=== PATIENT | male | born 1955 | race Caucasian/White ===

== ENCOUNTER 2020-09-11 23:30 | Inpatient (IN) | payer MEDICARE, MEDICAID ==
[~2020-09-11] VITALS: Ht 182.9 cm; Wt 70.3 kg
[2020-09-12] MEDS ORDERED: MAGNESIUM HYDROXIDE 2,400 MG/30 ML ORAL.SUSP. PO PRN (01:00)
[2020-09-12] MEDS ORDERED: MAG HYDROX/AL HYDROX/SIMETH 30 ML ORAL.SUSP PO PRN (01:00)
[2020-09-12] MEDS ORDERED: METHYL SALICYLATE/MENTHOL TOPICAL OINTMENT 57GM TUBE. TP PRN (01:00)
--- NOTE | 2020-09-12 01:08 | NUR ---
Admission Note with Justification for Admission to [facility] Patient admitted to [facility] for protective oversight for emergency stabilization of acute psychiatric crisis. Pt admitted from: [facility] Mode of arrival: EMS Accompanied By: EMS Precipitating behaviors that initiated intake and admission: IT WAS REPORTED THAT PATIENT HAS BEEN HAVING DECREASED SLEEP, PARANOIA, HYPERVERBAL, DELUSIONS: THINKING THAT STAFF IS POISONING HIM, VISUAL HALLUCINATIONS THAT HE HAS LESIONS ALL OVER HIS BODY AND THAT HIS FACILITY HAS GIVEN HIM CANCER. Description of failure of out patient attempts at stabilization in previous setting list behavior and medication trials: SENT HIM TO THE ER Behaviors and assessment findings upon admission: PATIENT IS HYPERVERBAL UPON ARRIVAL WITH FLIGHT OF IDEAS, VERBALLY AGGRESSIVE, THREATENING STAFF AND CALLING STAFF A BUNCH OF "FUCKING CHICKS". EMS REPORTED THAT HE WAS HYPERVERBAL AND WAS VERBALLY THREATENING THEM ON THE RIDE HERE. PATIENTS BELONGINGS WERE INVENTORIED AND HIS VITAL SIGNS WERE OBTAINED. HE WAS VULGAR AND RUDE TO NURSE DURING ASSESSMENT QUESTIONS STATING HIS NAME AND DATE WHEN ASKED, HE ALSO KNEW IT WAS 2020. HE THEN LAUNCHING INTO A TIRADE ABOUT [place] AND "FUCK YOU BITCH" WAS THE ANSWER TO THE REST OF THE ASSESSMENT QUESTIONS. EMS REPORTED THAT [facility] TOLD THEM THEY HAD GIVEN HIM IM [facility] WHILE THERE. THIS WAS NOT RELAYED TO [facility] STAFF WHEN [facility] CALLED TO DO INTAKE. PATIENT HAS BEEN TALKING ABOUT "CARTELS, COCAINE, CYMRO MAFIA, ETC" HE IS ORIENTED X2 (SELF AND YEAR), AWARE HE IS IN A HOSPITAL BUT HAS NO IDEA WHERE OR WHY. Plan: Admit for protective oversight for adjustment and stabilization of medications, behaviors and mood. Intense treatment regimen including groups, medication adjustments, therapy, consistent regimen for ADL's, self care, and sleep hygiene. Daily monitoring by Inpatient staff, Psychiatry, and Medical Physician.
[2020-09-12 01:30] VITALS: BP 183/80
[2020-09-12] MEDS ORDERED: FERR325T14 PO (01:46)
[2020-09-12] MEDS ORDERED: ATOR40TA59 PO (01:46)
[2020-09-12] MEDS ORDERED: POLY2500 PO (01:46)
[2020-09-12] MEDS ORDERED: CETI10TA16 PO (01:46)
[2020-09-12] MEDS ORDERED: AMLO-187 PO (01:46)
[2020-09-12] MEDS ORDERED: LORA10TA3 PO (01:46)
[2020-09-12] MEDS ORDERED: OLAN5TAB9 PO (01:46)
[2020-09-12] MEDS ORDERED: QUET200T4 PO (01:46)
[2020-09-12] MEDS ORDERED: SIME80TA13 PO (01:46)
[2020-09-12] MEDS ORDERED: IBUP-1673 PO (01:46)
[2020-09-12] MEDS ORDERED: SENN-142 PO (01:46)
[2020-09-12] MEDS ORDERED: CARV25TA2 PO (01:46)
[2020-09-12] MEDS ORDERED: ACET325T21 PO (01:46)
[2020-09-12] MEDS ORDERED: FAMO20TA5 PO (01:46)
[2020-09-12] MEDS ORDERED: ALUMINUM HYDROXIDE PO (01:46)
[2020-09-12] MEDS ORDERED: MAG-115 PO (01:46)
[2020-09-12] MEDS ORDERED: MONT10TA80 PO (01:46)
[2020-09-12] MEDS ORDERED: BENZ9.352 MM (01:46)
[2020-09-12] MEDS ORDERED: EPIN0.3A3 IM (01:46)
[2020-09-12] MEDS ORDERED: POLY15DR27 OU (01:46)
[2020-09-12] MEDS ORDERED: BENZ2TAB5 PO ×2 (01:46→02:40)
[2020-09-12] MEDS ORDERED: CARB1TAB22 PO (01:46)
[2020-09-12] MEDS ORDERED: TRAZ-125 PO (01:46)
[2020-09-12] MEDS ORDERED: CLON0.1T PO (01:46)
[2020-09-12] MEDS ORDERED: SIMETHICONE PO (01:46)
[2020-09-12] MEDS ORDERED: ALPR0.5T6 PO ×2 (01:46→02:40)
[2020-09-12] MEDS ORDERED: LISI30TA4 PO (01:46)
[2020-09-12] MEDS ORDERED: TAMS0.4C97 PO (01:46)
[2020-09-12] MEDS ORDERED: GUAI600T47 PO (01:46)
[2020-09-12] MEDS ORDERED: CICL15CR2 TP (01:46)
[2020-09-12] MEDS ORDERED: MAGN24003 PO (01:46)
[2020-09-12] MEDS ORDERED: DIPHENHYDRAMINE PO (01:46)
[2020-09-12] MEDS ORDERED: MELA10TA PO (01:46)
[2020-09-12] MEDS ORDERED: MAGNESIUM HYDROXIDE PO (01:46)
[2020-09-12] MEDS ORDERED: CALC625T12 PO (01:46)
[2020-09-12] MEDS ORDERED: INSU100C SQ (01:46)
[2020-09-12] MEDS ORDERED: LIDOCAINE PO (01:46)
[2020-09-12] MEDS ORDERED: MELATONIN 3 MG TABLET PO SCH (02:00)
[2020-09-12] MEDS ORDERED: BENZTROPINE MESYLATE 1 MG TABLET PO SCH (02:00)
[2020-09-12] MEDS ORDERED: ALPRAZolam 0.5 MG TABLET PO SCH (02:00)
[2020-09-12] MEDS: QUEtiapine 100 MG TABLET. PO SCH ×2 (02:01→21:19)
[2020-09-12] MEDS: OLANZapine 5 MG TABLET PO SCH ×2 (02:01→21:19)
[2020-09-12] MEDS: traZODone 100 MG TABLET. PO SCH ×2 (02:01→21:19)
[2020-09-12] MEDS ORDERED: CETIRIZINE HCL 10 MG TABLET PO PRN (02:30)
[2020-09-12] MEDS ORDERED: DIPHEN PO PRN (02:30)
[2020-09-12] MEDS ORDERED: LIDO PO PRN (02:30)
[2020-09-12] MEDS ORDERED: POLYVINYL ALCOHOL 1.4% OPHTH SOLUTION 15ML BOTTLE. OU PRN (02:30)
[2020-09-12] MEDS ORDERED: MAALOX PO PRN (02:30)
[2020-09-12] MEDS ORDERED: MELA3TAB43 PO (02:40)
[2020-09-12] MEDS ORDERED: CHLO25AM IJ (02:40)
[2020-09-12] MEDS ORDERED: BUSP15TA PO (02:40)
[2020-09-12] MEDS ORDERED: CHLO25TA4 PO (02:40)
[2020-09-12] MEDS ORDERED: chlorproMAZINE 50 MG/2 ML AMPUL IV PRN (02:45)
[2020-09-12] MEDS ORDERED: SIMETHICONE 80 MG TAB.CHEW PO PRN (02:45)
[2020-09-12] MEDS: busPIRone 15 MG TABLET. PO SCH ×4 (03:38→21:19)
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
[2020-09-12] MEDS: INSULIN LISPRO 300 UNITS/3 ML VIAL. SQ SCH ×3 (08:00→17:00)
[2020-09-12 08:05] VITALS: BP 181/77
[2020-09-12] MEDS: NICOTINE 21MG PATCH. TD SCH (08:07)
[2020-09-12] MEDS: MONTELUKAST 10 MG TABLET. PO SCH (08:07)
[2020-09-12] MEDS: ALPRAZolam 0.5 MG TABLET PO SCH ×3 (08:08→21:18)
[2020-09-12] MEDS: CARBIDOPA/LEVODOPA 25/100MG TABLET PO SCH ×3 (08:08→21:19)
[2020-09-12] MEDS: amLODIPine BESYLATE 10 MG TABLET PO SCH (08:08)
[2020-09-12] MEDS: POLYETHYLENE GLYCOL 3350 17 GM PACKET. PO SCH (08:08)
[2020-09-12] MEDS: FERROUS SULFATE 325 MG TABLET. PO SCH ×3 (08:08→17:09)
[2020-09-12] MEDS: CARVEDILOL 12.5 MG TABLET PO SCH ×2 (08:09→17:09)
[2020-09-12] MEDS: BENZTROPINE MESYLATE 1 MG TABLET PO SCH ×2 (08:09→21:20)
[2020-09-12] MEDS: LISINOPRIL 10 MG TABLET PO SCH (08:09)
[2020-09-12] MEDS: CALCIUM POLYCARBOPHIL 625 MG TABLET PO SCH (09:00)
[2020-09-12] MEDS ORDERED: NON FORMULARY ITEM (Loratadine 10 MG) PO SCH (09:00)
[2020-09-12] MEDS ORDERED: CALCIUM POLYCARBOPHIL 625 MG TABLET PO SCH (09:00)
[2020-09-12] MEDS ORDERED: LIDO:MAALOX:BENADRYL 1:1:1 180 ML BOTTLE. PO PRN (09:00)
--- NOTE | 2020-09-12 09:44 | NUR ---
Patient has been provided with Practical Counseling for tobacco cessation. It included a face to face interaction. Pt. was not interested in hearing anything about quitting smoking and was basically non-compliant.
[2020-09-12 10:01] LABS: BASO % 1 % (0-3); EOS % 0 % (0-3); HEMATOCRIT 42.6 % (39.0-53.0); HEMOGLOBIN 14.5 g/dL (13.0-17.5); LYMPH # 1.2 x10^3/uL (1.0-4.8); LYMPH % 15 % (24-48); MEAN CORPUSCULAR HEMOGLOBIN 31 pg (25-35); MEAN CORPUSCULAR HGB CONC 34 g/dL (31-37); MEAN CORPUSCULAR VOLUME 91 fL (79-100); MONO # 1.4 x10^3/uL (0.0-1.1); MONO % 17 % (0-9); NEUT # 5.6 x10^3uL (1.8-7.7); NEUT % 68 % (31-73); PLATELET COUNT 215 x10^3/uL (140-400); RED BLOOD COUNT 4.68 x10^6/uL (4.30-5.70); RED CELL DISTRIBUTION WIDTH 14.8 % (11.5-14.5); WHITE BLOOD COUNT 8.2 x10^3/uL (4.0-11.0)
[2020-09-12 10:19] LABS: ALBUMIN 4.8 g/dL (3.4-5.0); ALBUMIN/GLOBULIN RATIO 1.6 (1.0-1.7); CALCIUM 9.9 mg/dL (8.5-10.1); CREATININE 1.4 mg/dL (0.7-1.3); GFR 50.9; MAGNESIUM 2.3 mg/dL (1.8-2.4); POTASSIUM 4.3 mmol/L (3.5-5.1); TOTAL BILIRUBIN 0.5 mg/dL (0.2-1.0); TOTAL PROTEIN 7.8 g/dL (6.4-8.2)
[2020-09-12 13:24] LABS: THYROID STIM HORMONE (TSH) 3.552 uIU/mL (0.358-3.740)
[2020-09-12 15:36] VITALS: BP 129/80
--- NOTE | 2020-09-12 18:30 | NUR ---
Patient hyperverbal as well as verbally abusive and offensive. Patient alert and oriented x4 patient up ad elizabeth independently refuses vitals at times and refused his weight. Patient current smoker and smokes a pack a day he reports the nicotine patch of 21mg is not enough Dr Galaviz rounded on patient he was not able to get a word in because the patient would not stop talking he kept questioning Dr Galaviz's ability and skills as a Doctor, per Dr Galaviz there is not any other stronger medication patient can take along with the patch. Dr Hartman rounded on patient no new orders yet he would like to evaluate patient further tonight and review his labs in detail. Patient vitals are stable he is med compliant just very resistive when getting ready to take his meds. Patient does have an appetite but he does not stop talking long enough to finish his food. He talks so much during meals that he coughs and blames it on the kitchen trying to give him dangerous objects in his food and in reality he is talking too much and trying to eat at the same time which is impossible to do. No new orders from Dr Galaviz no complaints of pain or discomfort will continue to monitor patient.
[2020-09-12] MEDS: MELATONIN 3 MG TABLET PO SCH (21:18)
[2020-09-12] MEDS: TAMSULOSIN 0.4 MG CAP.ER.24H. PO SCH (21:19)
[2020-09-12] MEDS: ATORVASTATIN CALCIUM 20 MG TABLET PO SCH (21:19)
--- NOTE | 2020-09-12 22:07 | PDOC ---
Exam Note: Joel Note: Please also refer to the separate dictated note~for this date of service dictated separately.~Patient seen individually. Discussed the patient with Nursing staff reviewed the chart.~Reviewed interim history and current functioning. Reviewed vital signs,~Labs/ Radiology~and current medications noted below. Continue current treatment with the changes noted in the dictated addendum note Assessment: Vital Signs/I&O: Vital Signs Date Time Temp Pulse Resp B/P (MAP) Pulse Ox O2 Delivery O2 Flow Rate FiO2 09/12/20 17:09 64 129/80 09/12/20 15:36 96.9 16 100 09/12/20 08:05 Room Air I & O 09/11/20 09/11/20 09/12/20 15:00 23:00 07:00 Intake Total 0 ml Balance 0 ml Labs: Laboratory Tests Test 09/12/20 08:04 09/12/20 09:50 09/12/20 11:29 09/12/20 16:53 Glucose (Fingerstick) 131 mg/dL (70-99) H 127 mg/dL (70-99) H 141 mg/dL (70-99) H White Blood Count 8.2 x10^3/uL (4.0-11.0) Red Blood Count 4.68 x10^6/uL (4.30-5.70) Hemoglobin 14.5 g/dL (13.0-17.5) Hematocrit 42.6 % (39.0-53.0) Mean Corpuscular Volume 91 fL (79-100) Mean Corpuscular Hemoglobin 31 pg (25-35) Mean Corpuscular Hemoglobin Concent 34 g/dL (31-37) Red Cell Distribution Width 14.8 % (11.5-14.5) H Platelet Count 215 x10^3/uL (140-400) Neutrophils (%) (Auto) 68 % (31-73) Lymphocytes (%) (Auto) 15 % (24-48) L Monocytes (%) (Auto) 17 % (0-9) H Eosinophils (%) (Auto) 0 % (0-3) Basophils (%) (Auto) 1 % (0-3) Neutrophils # (Auto) 5.6 x10^3uL (1.8-7.7) Lymphocytes # (Auto) 1.2 x10^3/uL (1.0-4.8) Monocytes # (Auto) 1.4 x10^3/uL (0.0-1.1) H Eosinophils # (Auto) 0.0 x10^3/uL (0.0-0.7) Basophils # (Auto) 0.0 x10^3/uL (0.0-0.2) D-Dimer (Mallory) 0.31 mg/L (0.00-0.50) Sodium Level 138 mmol/L (136-145) Potassium Level 4.3 mmol/L (3.5-5.1) Chloride Level 100 mmol/L (98-107) Carbon Dioxide Level 24 mmol/L (21-32) Anion Gap 14 (6-14) Blood Urea Nitrogen 17 mg/dL (8-26) Creatinine 1.4 mg/dL (0.7-1.3) H Estimated GFR (Cockcroft-Gault) 50.9 BUN/Creatinine Ratio 12 (6-20) Glucose Level 147 mg/dL (70-99) H Calcium Level 9.9 mg/dL (8.5-10.1) Magnesium Level 2.3 mg/dL (1.8-2.4) Iron Level 66 ug/dL (65-175) Total Iron Binding Capacity 329 ug/dL (250-450) Iron Saturation 20 % (15-34) Total Bilirubin 0.5 mg/dL (0.2-1.0) Aspartate Amino Transferase (AST) 52 U/L (15-37) H Alanine Aminotransferase (ALT) 30 U/L (16-63) Alkaline Phosphatase 91 U/L (46-116) Total Protein 7.8 g/dL (6.4-8.2) Albumin 4.8 g/dL (3.4-5.0) Albumin/Globulin Ratio 1.6 (1.0-1.7) Triglycerides Level 34 mg/dL (0-150) Cholesterol Level 128 mg/dL (0-200) LDL Cholesterol, Calculated 36 mg/dL (0-100) VLDL Cholesterol, Calculated 6 mg/dL (0-40) Non-HDL Cholesterol Calculated 42 mg/dL (0-129) HDL Cholesterol 86 mg/dL (40-60) H Cholesterol/HDL Ratio 1.0 Vitamin B12 Level 1079 pg/mL (247-911) H 25-Hydroxy Vitamin D Total 31.1 ng/mL (30-100) Thyroid Stimulating Hormone (TSH) 3.552 uIU/mL (0.358-3.740) Treponema pallidum Antibody Nonreactive (Nonreactive) Test 09/12/20 19:15 Glucose (Fingerstick) 179 mg/dL (70-99) H Current Medications: Meds: Current Medications Medications (Trade) Dose Ordered Sig/Moe Route PRN Reason Start Time Stop Time Status Last Admin Dose Admin Nicotine (Nicoderm Cq 21mg Patch) 1 patch DAILY TD 09/12/20 09:00 09/12/20 08:07 Alprazolam (Xanax) 0.5 mg TID PO 09/12/20 02:00 09/12/20 02:50 DC 09/12/20 02:01 Olanzapine (ZyPREXA) 5 mg HS PO 09/12/20 02:00 09/12/20 21:19 Trazodone HCl (Desyrel) 100 mg HS PO 09/12/20 02:00 09/12/20 21:19 Benztropine Mesylate (Cogentin) 2 mg BID PO 09/12/20 02:00 09/12/20 02:51 DC 09/12/20 02:01 Melatonin (Melatonin) 9 mg HS PO 09/12/20 02:00 09/12/20 02:51 DC 09/12/20 02:01 Quetiapine Fumarate (SEROquel) 200 mg HS PO 09/12/20 02:00 09/12/20 21:19 Amlodipine Besylate (Norvasc) 10 mg DAILY PO 09/12/20 09:00 09/12/20 08:08 Carbidopa/Levodopa (Sinemet 25/100) 2 tab TID PO 09/12/20 09:00 09/12/20 21:19 Ferrous Sulfate (Feosol) 325 mg TIDWMEALS PO 09/12/20 08:00 09/12/20 17:09 Montelukast Sodium (Singulair) 10 mg DAILY PO 09/12/20 09:00 09/12/20 08:07 Tamsulosin HCl (Flomax) 0.4 mg HS PO 09/12/20 21:00 09/12/20 21:19 Lisinopril (Prinivil) 30 mg DAILY PO 09/12/20 09:00 09/12/20 08:09 Polyethylene Glycol (miraLAX) 17 gm DAILY PO 09/12/20 09:00 09/12/20 08:08 Atorvastatin Calcium (Lipitor) 40 mg QHS PO 09/12/20 21:00 09/12/20 21:19 Carvedilol (Coreg) 25 mg BIDWMEALS PO 09/12/20 08:00 09/12/20 17:09 Alprazolam (Xanax) 0.5 mg TID PO 09/12/20 09:00 09/12/20 21:18 Buspirone HCl (Buspar) 7.5 mg TID PO 09/12/20 03:00 09/12/20 21:19 Melatonin (Melatonin) 9 mg QHS PO 09/12/20 21:00 09/12/20 21:18 Benztropine Mesylate (Cogentin) 2 mg BID PO 09/12/20 09:00 09/12/20 21:20 Calcium Polycarbophil (Fibercon) 625 mg DAILY PO 09/12/20 09:00 09/12/20 09:00 I have reviewed the current psychotropics carefully including drug interactions. Risk benefit ratio favors no change other than as noted in my dictated progress note. Diagnosis: Problems: (1) Bipolar disorder, current episode mixed, severe, with psychotic features BRIGIDA WOMACK MD Sep 12, 2020 22:07
--- NOTE | 2020-09-12 23:07 | NUR ---
Pt is in his room talking, no one is present, he is manic. He is hyperverbal and tonight he is talking about PCP, the cocaine cartel, [place] veterans and jumping from subject to subject. Patient continually talking while nurse was in to assess him and give him medications. Nurse eventually put medications in patients mouth with spoon, patient continued to talk and would not swallow medications or take a drink of water. Eventually patient swallowed medications when nurse spooned pudding into his mouth. Patient questioned this nurses credentials and then was talking about Dr Galaviz being from [facility] and Dr Hartman being from [facility]. Patient stated they are not his doctors and that no doctor had ordered the medication that nurse was giving him. After nurse left the room patient continued to talk (no one else was present), he was later observed sitting in a chair in the hallway talking to himself. Patient refused to take a shower and has continued to refuse to get onto a scale or onto the bed for a weight.
[2020-09-13 00:06] LABS: HEMOGLOBIN A1C 6.6 % (4.8-5.6)
--- NOTE | 2020-09-13 02:08 | CONS ---
DATE OF CONSULTATION: 09/12/2020 HISTORY OF PRESENT ILLNESS: The patient is a 65-year-old male patient who was seen at the [facility] with insomnia, paranoid, hyperverbal and directable and delusional. Thinks staff are poisoning him, he has visual hallucinations, sees lesions all over his body, thinks facility has given him cancer, all this has been going on for the last few weeks. He was [facility] to [facility] for inpatient psychiatric stabilization. The patient is extremely hyperverbal and paranoid, talks nonstop and has flight of ideas and was difficult to get any information from him. PAST MEDICAL HISTORY: Significant for hypertension, type 2 diabetes, gastroesophageal reflux disease and hyperlipidemia. He has also degenerative joint diseases. PAST PSYCHIATRIC HISTORY: Significant for schizoaffective disorder, anxiety and depression. FAMILY HISTORY: Positive for heart disease. PAST SURGICAL HISTORY: Significant for joint replacement, tonsillectomy. ALLERGIES: HE IS ALLERGIC TO VICODIN, PENICILLIN, AMINOGLYCOSIDE, CIPRO, GENTAMICIN, MORPHINE, KEFLEX, TETRACYCLINE, SULFA DRUGS, DICYCLOMINE. He is apparently intolerant to METOPROLOL. SOCIAL HISTORY: He is current everyday smoker. He apparently does not drink alcohol. MEDICATIONS: He is currently on the following medication. He is on cetirizine 10 mg once a day, loratadine 10 mg once a day, epinephrine or EpiPen 0.3 mg intramuscular as needed, tamsulosin 0.4 mg at bedtime, ferrous sulfate 325 mg 3 times a day, atorvastatin 40 mg at bedtime, clonidine 0.1 mg twice a day, carvedilol 25 mg twice a day, amlodipine 10 mg once a day, lisinopril 30 mg once a day, ibuprofen 200 mg every 6 hours, Tylenol 650 mg every 4 hours, trazodone 100 mg at bedtime, chlorpromazine 25 mg per mL intramuscular twice a day as needed for psychosis, chlorpromazine 25 mg p.o. b.i.d., olanzapine 5 mg at bedtime, quetiapine fumarate 200 mg at bedtime, alprazolam 0.5 mg 3 times a day, buspirone 15 mg half a tablet 3 times a day, benztropine mesylate 2 mg twice a day, he is on carbidopa/levodopa 25/100 three times a day, Singulair 10 mg at bedtime, guaifenesin or Mucinex 600 mg twice a day. He is on polyvinyl alcohol or artificial tears 1 drop to both eyes 4 times a day. He is on Mylanta 30 mL every 4 hours, simethicone 80 mg twice a day, calcium polycarbophil 625 mg daily, magnesium hydroxide 30 mL p.o. daily p.r.n. for constipation, senna-S 1 tablet at bedtime. He is on famotidine 20 mg twice a day. He is on Humalog insulin as insulin sliding scale before meals. He is on ciclopirox cream apply topically for toenail fungus, melatonin 3 mg at bedtime, polyethylene glycol 17 grams daily, diphenhydramine, Maalox and lidocaine 5 mL q.i.d. REVIEW OF SYSTEMS: Unobtainable. The patient talks nonstop. PHYSICAL EXAMINATION: GENERAL: When I examined him, he looked well and was clearly in no apparent respiratory distress. He was somewhat pale, but no jaundice, cyanosis or thyromegaly. No jugular venous distention. No lower limb edema. VITAL SIGNS: His heart rate was 64, blood pressure is 129/80, temperature 96.9, respiratory rate was 16, and oxygen saturation 100% on room air. HEAD, EYES, EARS, NOSE, AND THROAT: Normocephalic, atraumatic. NECK: Supple. HEART: Normal first and second heart sounds. No gallop, rub or murmur. CHEST: Clear to auscultation. No crepitation or rhonchi. ABDOMEN: Soft, nontender. No guarding or rigidity. No organomegaly. All hernial orifice intact. Bowel sounds normal. NEUROLOGIC: He is grossly intact. All his cranial nerves intact. He moves extremities without difficulty, ambulates without assistance or assistive devices. LABORATORY DATA: Showed a white cell count of 8200, hemoglobin 14.5, hematocrit 42, MCV 91, and platelet count 215,000 with normal manual differential. His chemistry showed a serum sodium of 138, potassium 4.3, chloride 100, bicarbonate 24, anion gap of 14, BUN 17, creatinine was 1.4. Estimated GFR was 50 mL per minute. His glucose 147, calcium was 9.9, magnesium 2.3. Total bilirubin, AST, ALT, alkaline phosphatase were normal. Total protein 7.8, albumin was 4.8. His D-dimer was 0.31. His serum iron, TIBC and iron saturation are consistent with replete iron stores. Serum triglycerides 54, cholesterol 128, LDL was 36, VLDL was 6, HDL was 86 and the ratio was 1. His vitamin B12 was 1079, 25-hydroxy vitamin D was 31. TSH was normal at 3.552. His Treponema pallidum antibodies were nonreactive. ASSESSMENT AND PLAN: In summary, this is a 65-year-old male patient who was admitted on account of being extremely paranoid, hyperverbal and directable. He is delusional and thinks staff are poisoning him. He has visual hallucinations, see lesions all over his body, he thinks that the facility has given him the cancer and all this in a background of schizoaffective disorder. These symptoms have been going on for almost a few weeks now. He has multiple medical problems including type 2 diabetes mellitus, hypertension and hyperlipidemia. 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 His lab work, however, showed that his hemoglobin and hematocrit, white cell count and platelets are all within normal range. His chemistry also was unremarkable except for low vitamin D and chronic kidney disease. The patient is extremely paranoid, seems to be manic. He has severe flight of ideas and talks nonstop and as far as his medical problem, I would recommend that we should add he is already on lisinopril, amlodipine and carvedilol. I believe that controlling his psychosis probably will have ameliorating effect on his hypertension. I will follow him closely and obviously if his blood pressure continued to be high, we can increase his lisinopril or add other medication. Thank you, Dr. Hartman, for allowing me to participate in the care of this patient. TRUPTI/DAYAN SELBY: Dary TID: [id number]
[2020-09-13 06:17] VITALS: BP 101/63
[2020-09-13] MEDS: CARVEDILOL 12.5 MG TABLET PO SCH ×3 (08:00→16:27)
[2020-09-13] MEDS: INSULIN LISPRO 300 UNITS/3 ML VIAL. SQ SCH ×3 (08:00→17:33)
[2020-09-13] MEDS: FERROUS SULFATE 325 MG TABLET. PO SCH ×4 (08:00→16:27)
[2020-09-13] MEDS: LISINOPRIL 10 MG TABLET PO SCH ×2 (08:15→09:00)
[2020-09-13] MEDS: amLODIPine BESYLATE 10 MG TABLET PO SCH ×2 (08:16→09:00)
[2020-09-13] MEDS: busPIRone 15 MG TABLET. PO SCH ×4 (08:17→20:19)
[2020-09-13] MEDS: CARBIDOPA/LEVODOPA 25/100MG TABLET PO SCH ×4 (08:18→20:18)
[2020-09-13] MEDS: ALPRAZolam 0.5 MG TABLET PO SCH ×4 (08:19→20:19)
[2020-09-13] MEDS: MONTELUKAST 10 MG TABLET. PO SCH ×2 (08:19→09:00)
[2020-09-13] MEDS: CALCIUM POLYCARBOPHIL 625 MG TABLET PO SCH ×2 (08:19→09:00)
[2020-09-13] MEDS: BENZTROPINE MESYLATE 1 MG TABLET PO SCH ×3 (08:19→20:19)
[2020-09-13] MEDS: NICOTINE 21MG PATCH. TD SCH (08:20)
[2020-09-13] MEDS: POLYETHYLENE GLYCOL 3350 17 GM PACKET. PO SCH (08:20)
--- NOTE | 2020-09-13 10:51 | NUR ---
WEEKLY ACTIVITY THERAPY NOTE Date of Admission: 09/11/20 Date of AT Assessment: TBD Precipitating behaviors that initiated intake and admission: IT WAS REPORTED THAT PATIENT HAS BEEN HAVING DECREASED SLEEP, PARANOIA, HYPERVERBAL, DELUSIONS: THINKING THAT STAFF IS POISONING HIM, VISUAL HALLUCINATIONS THAT HE HAS LESIONS ALL OVER HIS BODY AND THAT HIS FACILITY HAS GIVEN HIM CANCER. Goal aimed: TBD Initial Goal: TBD Weekly progress towards goal: GOAL EVALUATION BEGINS NEXT WEEK Group participation level: 1 min Weekly highlights: said that he likes fishing during salad bowl activity Thursday afternoon Behaviors observed: hyperverbal Plan: meet/assess pt Beneficial adaptations:
--- NOTE | 2020-09-13 10:52 | NUR ---
Phon Addendum: 09/13/20 at 1055 by SHRADDHA HUYNH RN Phone Consent Patient legal guardian Ace Sweeney gave phone consent to this rewriter and verified with NEVIN Carson for intramuscular injection to be given to patient due to not being med compliant.
[2020-09-13] MEDS: HALOPERIDOL LACT 5 MG/ML VIAL. IM SCH (11:08)
--- NOTE | 2020-09-13 12:55 | NUR ---
ACTIVITY THERAPY ASSESSMENT completed based on notes, observation and interview. Pt was walking in the hallway. AT introduced self to pt and asked if he would answer a few questions. Pt became very hyperverbal as he proceeded to walk down the hallway. Pt said that we could find his room to answer questions. AT assisted pt to his room and pt sat in the chair in his room. Pt remained hyperverbal throughout assessment and often spoke off topic. AT asked pt what he likes to do and pt said he likes fishing, hunting, painting (acrylics/canvas), and arts and crafts. Pt can recall most facts and details during assessment. AT asked pt about his family. Pt explained that he is not and has two children. Pt said that he has good contact with both of his children. Pt remained hyperverbal so AT redirected pt by asking about stress. Pt said that he was stressed because he doesn't think he should be taking these medications. Pt began to talk about "getting a shot in the rear end." Pt was irritable and agitated when talking about the injection. Pt said "there will be no more of that funny stuff." AT redirected pt by encouraging him to attend group sessions during the afternoon. Per notes pt has been resistive with cares and medications. Pt was given an intramuscular injection and appears to be more compliant. Initial goal aimed to increase stress management and relaxation skills. Pt will participate in at least five individual or group Activity Therapy sessions per week. Addendum: 09/20/20 at 1220 by MANUEL SCHMIDT ACT Goal changed 09/20:Pt will participate in all group Activity Therapy sessions offered.
--- NOTE | 2020-09-13 15:55 | NUR ---
Nurse Note Patient has been hyperverbal throughout shift with flight of ideas. Patient refusing medications therefore Haldol and Ativan intramuscular administered. Patient has continued to be hyperverbal but has slowed down and been compliant with medications/cares since injection.
[2020-09-13 16:00] VITALS: BP 103/65
[2020-09-13] MEDS: DIVALPROEX ER 500 MG TAB.ER.24H PO SCH (20:17)
[2020-09-13] MEDS: QUEtiapine 100 MG TABLET. PO SCH (20:18)
[2020-09-13] MEDS: traZODone 100 MG TABLET. PO SCH (20:18)
[2020-09-13] MEDS: MELATONIN 3 MG TABLET PO SCH (20:18)
[2020-09-13] MEDS: TAMSULOSIN 0.4 MG CAP.ER.24H. PO SCH (20:19)
[2020-09-13] MEDS: ATORVASTATIN CALCIUM 20 MG TABLET PO SCH (20:19)
[2020-09-13] MEDS: OLANZapine 5 MG TABLET PO SCH (20:20)
--- NOTE | 2020-09-13 21:08 | NUR ---
Consult Dr Palencia per Dr. Hartman. Concern: Patient on Sinemet for Parkinson's and has Bipolar with manic symptoms. Dr Palencia paged 09/13 [phone]. Addendum: 09/14/20 at 0013 by MARIELOS MADDEN RN Dr. Palencia called back and was notified of the Consult.
--- NOTE | 2020-09-13 21:58 | PDOC ---
Exam Note: Joel Note: Please also refer to the separate dictated note~for this date of service dictated separately.~Patient seen individually. Discussed the patient with Nursing staff reviewed the chart.~Reviewed interim history and current functioning. Reviewed vital signs,~Labs/ Radiology~and current medications noted below. Continue current treatment with the changes noted in the dictated addendum note Assessment: Vital Signs/I&O: Vital Signs Date Time Temp Pulse Resp B/P (MAP) Pulse Ox O2 Delivery O2 Flow Rate FiO2 09/13/20 16:27 81 103/65 09/13/20 16:00 97.4 20 96 09/13/20 06:17 Room Air I & O 09/12/20 09/12/20 09/13/20 15:00 23:00 07:00 Intake Total 840 ml 480 ml Balance 840 ml 480 ml Labs: Laboratory Tests Test 09/13/20 12:06 09/13/20 17:17 09/13/20 19:23 Glucose (Fingerstick) 122 mg/dL (70-99) H 214 mg/dL (70-99) H 95 mg/dL (70-99) Current Medications: Meds: Laboratory Tests Test 09/13/20 12:06 09/13/20 17:17 09/13/20 19:23 Glucose (Fingerstick) 122 mg/dL 214 mg/dL 95 mg/dL Current Medications Medications (Trade) Dose Ordered Sig/Moe Route PRN Reason Start Time Stop Time Status Last Admin Dose Admin Acetaminophen (Tylenol) 650 mg PRN Q6HRS PRN PO MILD PAIN / TEMP > 100.3'F 09/12/20 01:00 Multi-Ingredient Ointment (Analgesic [place]) 1 miquel PRN QID PRN TP MUSCLE PAIN 09/12/20 01:00 Al Hydroxide/Mg Hydroxide (Mylanta Plus Xs) 15 ml PRN AFTMEALHC PRN PO DYSPEPSIA 09/12/20 01:00 Magnesium Hydroxide (Milk Of Magnesia) 2,400 mg PRN QHS PRN PO CONSTIPATION 09/12/20 01:00 Nicotine (Nicoderm Cq 21mg Patch) 1 patch DAILY TD 09/12/20 09:00 09/13/20 08:20 Alprazolam (Xanax) 0.5 mg TID PO 09/12/20 02:00 09/12/20 02:50 DC 09/12/20 02:01 Olanzapine (ZyPREXA) 5 mg HS PO 09/12/20 02:00 09/13/20 20:20 Trazodone HCl (Desyrel) 100 mg HS PO 09/12/20 02:00 09/13/20 20:18 Benztropine Mesylate (Cogentin) 2 mg BID PO 09/12/20 02:00 09/12/20 02:51 DC 09/12/20 02:01 Melatonin (Melatonin) 9 mg HS PO 09/12/20 02:00 09/12/20 02:51 DC 09/12/20 02:01 Quetiapine Fumarate (SEROquel) 200 mg HS PO 09/12/20 02:00 09/13/20 20:18 Amlodipine Besylate (Norvasc) 10 mg DAILY PO 09/12/20 09:00 09/12/20 08:08 Calcium Polycarbophil (Fibercon) 625 mg DAILY PO 09/12/20 09:00 09/12/20 09:12 DC Carbidopa/Levodopa (Sinemet 25/100) 2 tab TID PO 09/12/20 09:00 09/13/20 20:18 Cetirizine HCl (ZyrTEC) 10 mg PRN DAILY PRN PO ALLERGIES 09/12/20 02:30 Ferrous Sulfate (Feosol) 325 mg TIDWMEALS PO 09/12/20 08:00 09/13/20 16:27 Montelukast Sodium (Singulair) 10 mg DAILY PO 09/12/20 09:00 09/12/20 08:07 Artificial Tears (Artificial Tears) 1 drop PRN QID PRN OU DRY EYE 09/12/20 02:30 Tamsulosin HCl (Flomax) 0.4 mg HS PO 09/12/20 21:00 09/13/20 20:19 Lisinopril (Prinivil) 30 mg DAILY PO 09/12/20 09:00 09/12/20 08:09 Non-Formulary Medication (Loratadine ) 10 mg DAILY PO 09/12/20 09:00 09/12/20 02:37 DC Polyethylene Glycol (miraLAX) 17 gm DAILY PO 09/12/20 09:00 09/12/20 08:08 Non-Formulary Medication ([Diphen/Maalox/ Lido] ) 5 ml QID PRN PO Abdominal Pain 09/12/20 02:30 UNV Atorvastatin Calcium (Lipitor) 40 mg QHS PO 09/12/20 21:00 09/13/20 20:19 Carvedilol (Coreg) 25 mg BIDWMEALS PO 09/12/20 08:00 09/13/20 16:27 Simethicone (Gas-X) 80 mg PRN BID PRN PO GAS / BLOATING 09/12/20 02:45 Multi-Ingredient Mouthwash/Gargle (Magic Mouthwash) 10 ml PRN QID PRN PO MOUTH PAIN 09/12/20 09:00 Alprazolam (Xanax) 0.5 mg TID PO 09/12/20 09:00 09/13/20 20:19 Buspirone HCl (Buspar) 7.5 mg TID PO 09/12/20 03:00 09/13/20 20:19 Chlorpromazine HCl (Thorazine) 25 mg PRN BID PRN IV PSYCHOSIS 09/12/20 02:45 Melatonin (Melatonin) 9 mg QHS PO 09/12/20 21:00 09/13/20 20:18 Benztropine Mesylate (Cogentin) 2 mg BID PO 09/12/20 09:00 09/13/20 20:19 Insulin Human Lispro (HumaLOG) 0-9 UNITS TIDWMEALS SQ 09/12/20 08:00 09/13/20 17:33 Calcium Polycarbophil (Fibercon) 625 mg DAILY PO 09/12/20 09:00 09/12/20 09:00 Haloperidol Lactate (Haldol) 5 mg DAILY IM 09/13/20 11:00 09/13/20 11:08 Lorazepam (Ativan Inj) 1 mg 1X ONCE IM 09/13/20 10:45 09/13/20 10:56 DC 09/13/20 11:08 Lorazepam (Ativan Inj) 1 mg DAILY IM 09/13/20 11:00 Divalproex Sodium (Depakote Er) 500 mg QHS PO 09/13/20 21:00 09/13/20 20:17 Current Medications Medications (Trade) Dose Ordered Sig/Moe Route PRN Reason Start Time Stop Time Status Last Admin Dose Admin Haloperidol Lactate (Haldol) 5 mg DAILY IM 09/13/20 11:00 09/13/20 11:08 Lorazepam (Ativan Inj) 1 mg 1X ONCE IM 09/13/20 10:45 09/13/20 10:56 DC 09/13/20 11:08 Divalproex Sodium (Depakote Er) 500 mg QHS PO 09/13/20 21:00 09/13/20 20:17 I have reviewed the current psychotropics carefully including drug interactions. Risk benefit ratio favors no change other than as noted in my dictated progress note. Diagnosis: Problems: (1) Bipolar disorder, current episode mixed, severe, with psychotic features BRIGIDA WOMACK MD Sep 13, 2020 21:58
--- NOTE | 2020-09-13 22:58 | HP ---
ADMIT DATE: 09/12/2020 PSYCHIATRIC ADMISSION HISTORY/EVALUATION This is a late entry date of service 09/12/2020 covers elements not covered in my initial note 09/12/2020. The patient was seen individually on the evening of 09/12/2020 for this evaluation. I had previously discussed the patient with Raina Mcconnell, proposal coordinator and nursing staff. IDENTIFYING DATA: The patient is a 65-year-old male referred to us from the Emergency Room at [facility] where he presented from [facility] on account of an acute exacerbation of his schizoaffective disorder, bipolar type, manic with psychotic features. The patient had marked insomnia, was paranoid, hyperverbal, delusional. He believed staff was poisoning him. He is having visual hallucinations, seeing lesions all over his body. He thought the facility was giving him cancer. He is admitted by his court appointed legal guardian for stabilization of his above disorder since he had failed outpatient psychiatric interventions. Behavior is deemed dangerous, unmanageable at the facility. CHIEF COMPLAINT: "you're a black man. I don't like that. I came here not today, but tomorrow. We are there together. Black." The patient was extremely hyperverbal, constantly rambling in his speech, loud, abrasive, repetitive, psychotic, totally disorganized. HISTORY OF PRESENT ILLNESS: The patient has a history of schizoaffective disorder, bipolar type. He has been treated at [facility] for many years by Dr. Sanches, but recently he has failed all of this treatment with marked psychotic symptoms, grazyna, insomnia as noted above. No active suicidal or homicidal ideation. He does have a court appointed legal guardian who facilitated this admission. PAST PSYCHIATRIC HISTORY: As above. PAST MEDICAL HISTORY: Positive for hypertension, type 2 diabetes mellitus, GERD, hyperlipidemia, degenerative joint disease, heart disease, colitis, status post GI bleed, neutropenia, knee joint replacement, history of tonsillectomy, Parkinson's disease. He is a current smoker. CODE STATUS: Full code. DRUG ALLERGIES: VICODIN, PENICILLIN, AMINOGLYCOSIDE ANTIBIOTICS, CIPRO, GENTAMICIN, MORPHINE, KEFLEX, TETRACYCLINE, SULFA, DICYCLOMINE, METOPROLOL AND HE IS ALSO ALLERGIC TO WASPS. DIET: Mechanical soft, regular liquid. Takes medications whole, ambulates up ad elizabeth. CURRENT PSYCHOTROPICS: Benztropine 2 mg b.i.d., Xanax 0.5 mg t.i.d., BuSpar 7.5 mg t.i.d., Sinemet 25/100 two tablets t.i.d., melatonin 3 mg at bedtime, Zyprexa 5 mg at bedtime, Seroquel 200 mg at bedtime, trazodone 100 mg at bedtime. FAMILY HISTORY: Noncontributory. SOCIAL HISTORY: No history of alcohol, drug abuse, physical, sexual or elder abuse. He is not known to be a perpetrator. Reaction to hospitalization, the patient very disorganized. Unable to verbalize this appropriately. REVIEW OF SYSTEMS: No CV, , pulmonary, eye, ENT system symptoms on review. Reliability poor. MENTAL STATUS EXAMINATION: Oriented to himself, situation. Speech rapid, difficult to understand, extremely pressured with flight of ideas, loose associations, inattention, distractibility. Insight poor. Judgment marginal. Language function intact. Mood and affect labile, manic, grandiose. He is quite paranoid, suspicious. Seems to be hallucinating intermittently. IMPRESSION: Schizoaffective disorder, bipolar type, mixed with psychotic features versus schizoaffective disorder, bipolar type, manic with psychotic features; anxiety disorder, unspecified; impulse control disorder, unspecified. Rest as above. PLAN: Admit to ger[facility]iatry unit at [facility]. I will see the patient daily individually from a psychiatric standpoint, medical followup with Dr. Garcia/Dr. Wang. Continue current psychotropics. Start Depakote as a mood stabilizer post baseline assessment. The patient is intermittently noncompliant with his psychotropics and we will have to get directions from his court-appointed guardian possibly on parenteral antipsychotics. We may also consult Dr. Palencia, Neurology to see if the patient actually needs the Sinemet, which in fact could be worsening some of his psychotic symptoms. It is not entirely clear if he has a primary diagnosis of Parkinson's, requiring the Sinemet or parkinsonian symptoms consequent to his antipsychotics. We will seek clarification on this. We will make further adjustments as clinically indicated. ESTIMATED LENGTH OF STAY: 10-12 days. DISPOSITION: Plans back to [facility] when stable and outpatient followup at [facility]. RYAN/GERARDO DR: Maurice TID: [id number]
--- NOTE | 2020-09-14 00:13 | NUR ---
Patient was much more pleasant this shift. He is still hyperverbal but is less paranoid and less focused on the FBI, [employer], [employer] and Mafia than on the two prior nights. He asked why he was taking the medications that he was given but then took them. Patient was started on Depakote tonight. Patient was initially resistive with taking a shower and then with taking his clothes off, accusing the AUTOMATIC GRINDING MACHINE OPERATOR of planning to take his clothing. He eventually agreed to take a shower.
[2020-09-14 06:11] VITALS: BP 130/75
[2020-09-14] MEDS: INSULIN LISPRO 300 UNITS/3 ML VIAL. SQ SCH ×3 (08:00→17:00)
--- NOTE | 2020-09-14 08:07 | EKG ---
[address] [address] Test Date: 2020-09-14 Test Time: 06:10:15 Pat Name: BING GRUBBS Department: Room: [address] [place] [address] Gender: M Blending Technician: : 1955 Requested By: BRIGIDA WOMACK Order Number: [id number] Reading MD: Measurements Intervals [employer] Rate: 52 P: 0 RI: 170 QRS: -27 QRSD: 148 T: 101 QT: 420 QTc: 393 Interpretive Statements SINUS RHYTHM LEFTWARD AXIS NON SPECIFIC INTRAVENTRICULAR BLOCK RVH WITH REPOLARIZATION ABNORMALITY QRS(T) CONTOUR ABNORMALITY CONSIDER ANTEROSEPTAL MYOCARDIAL DAMAGE ABNORMAL ECG RI6.01 No previous ECG available for comparison
[2020-09-14] MEDS: CARBIDOPA/LEVODOPA 25/100MG TABLET PO SCH ×3 (08:36→20:29)
[2020-09-14] MEDS: busPIRone 15 MG TABLET. PO SCH ×3 (08:37→20:30)
[2020-09-14] MEDS: CALCIUM POLYCARBOPHIL 625 MG TABLET PO SCH (08:37)
[2020-09-14] MEDS: MONTELUKAST 10 MG TABLET. PO SCH (08:37)
[2020-09-14] MEDS: ALPRAZolam 0.5 MG TABLET PO SCH ×3 (08:37→20:38)
[2020-09-14] MEDS: FERROUS SULFATE 325 MG TABLET. PO SCH ×3 (08:37→16:26)
[2020-09-14] MEDS: HALOPERIDOL LACT 5 MG/ML VIAL. IM SCH (08:38)
[2020-09-14] MEDS: NICOTINE 21MG PATCH. TD SCH (08:38)
[2020-09-14] MEDS: amLODIPine BESYLATE 10 MG TABLET PO SCH (08:38)
[2020-09-14] MEDS: BENZTROPINE MESYLATE 1 MG TABLET PO SCH ×2 (08:38→20:29)
[2020-09-14] MEDS: CARVEDILOL 12.5 MG TABLET PO SCH ×2 (08:39→16:26)
[2020-09-14] MEDS: LISINOPRIL 10 MG TABLET PO SCH (08:39)
[2020-09-14] MEDS: POLYETHYLENE GLYCOL 3350 17 GM PACKET. PO SCH (08:40)
--- NOTE | 2020-09-14 09:52 | PDOC ---
Exam Note: Joel Note: This note is a late entry for 09/13/2020 covers elements not covered in my initial note. Subjective: The patient was reviewed in the morning of 09/13/2020 for a treatment team meeting with Raina Germain, Katy Aguiar and Sindhu (social media job titles), Sigrid, activity therapy and Jos ROONEY, discussed and reviewed the chart. The patient slept 6 hours previous night. I was called as an emergency early in the morning by nursing staff. The patient has been non-compliant with his medications, extremely psychotic, hyperverbal, agitated, paranoid, aggressive, and disruptive. Behaviors have been somewhat dangerous given his marked impulsivity. Nursing staff did contact the patients guardian who approved initiation of IM Haldol 5 mg, Ativan 1 mg daily since he is non- responsive to oral psychotropics. By the time I met with the patient in the evening, he was much calmer, appropriate, still somewhat hyperverbal, but psychotic symptoms much more stabilized. We discussed his history, diagnoses, discharge, after care plans at length at treatment team meeting. He had many questions about his belongings and policies of the hospital and the unit etc., which I addressed at length in his room. Review of Systems: Ambulation impaired in Broda chair. No CV, , pulmonary, eye, ENT system symptoms on review. Mental Status Exam: The patient is oriented to himself and situation. Speech rapid, coherent. Abstraction fair. Computation impaired. Language function intact. Attention span short. Mood and affect remains labile, grandiose. Laboratory Data: Reviewed. Impression: Bipolar disorder manic with psychotic features. Anxiety disorder unspecified. Impulse control disorder unspecified. Schizoaffective disorder, bipolar type, manic with psychotic features. Plan: The patient is on Sinemet for her questionable of Parkinsons disease. He probably has had parkinsonian symptoms from his antipsychotics necessitating the above diagnoses. We will get clarification from Dr. Palencia and try and stop the Sinemet if possible since it could be worsening his psychosis and mood labil ity. Start Depakote ER 500 mg p.o. daily. Check CBC, CMP, valproic acid level in 3 days. Continue Zyprexa 5 mg h.s., Seroquel 200 mg h.s., Xanax and Benztropine for now along with trazodone. Consider changing Seroquel and Zyprexa to Risperdal. Assessment: Vital Signs/I&O: Vital Signs Date Time Temp Pulse Resp B/P (MAP) Pulse Ox O2 Delivery O2 Flow Rate FiO2 09/14/20 08:39 71 130/75 09/14/20 06:11 97.1 16 99 09/13/20 06:17 Room Air I & O 09/13/20 09/13/20 09/14/20 15:00 23:00 07:00 Intake Total 480 ml 720 ml Balance 480 ml 720 ml Labs: Laboratory Tests Test 09/13/20 12:06 09/13/20 17:17 09/13/20 19:23 09/14/20 07:50 Glucose (Fingerstick) 122 mg/dL (70-99) H 214 mg/dL (70-99) H 95 mg/dL (70-99) 123 mg/dL (70-99) H Current Medications: Meds: Current Medications Medications (Trade) Dose Ordered Sig/Moe Route PRN Reason Start Time Stop Time Status Last Admin Dose Admin Haloperidol Lactate (Haldol) 5 mg DAILY IM 09/13/20 11:00 09/14/20 08:38 Lorazepam (Ativan Inj) 1 mg 1X ONCE IM 09/13/20 10:45 09/13/20 10:56 DC 09/13/20 11:08 Divalproex Sodium (Depakote Er) 500 mg QHS PO 09/13/20 21:00 09/13/20 20:17 I have reviewed the current psychotropics carefully including drug interactions. Risk benefit ratio favors no change other than as noted in my dictated progress note. Diagnosis: Problems: (1) Bipolar disorder, current episode manic, severe with psychotic features (2) Schizoaffective disorder, bipolar type (3) Anxiety disorder, unspecified (4) Impulse control disorder, unspecified BRIGIDA WOMACK MD Sep 14, 2020 09:52
--- NOTE | 2020-09-14 11:10 | NUR ---
SW attempted to contact Delano, pt Public Game Trapper, and left a message asking for him to contact VISHNU when possible.
--- NOTE | 2020-09-14 12:00 | NUR ---
VISHNU received call from pt Public Timber Spotter, Delano, and discussed pt request to make multiple phone calls. At this time, Delano does not wish to have pt make any phone calls out. Pt family has been made aware that pt is here and if they choose to call it, he can talk to them. Otherwise, he reiterated that pt should not be making any calls out.
[2020-09-14 16:41] VITALS: BP 147/77
--- NOTE | 2020-09-14 17:48 | NUR ---
Pt alert and oriented med compliant not as hyperverbal today patient social with other patients good appetite able to focus on meal and eat his food in the dining room for all meals. Patient has no complaints of pain or discomfort. Patient did not receive his scheduled IM lorazepam because patient was very calm and slightly sleepy once he received his IM haldol and oral xanax. Patient vitals stable and wnl of baseline patient carbidopa was discussed with Dr Palencia in relation to possible effects in relation to his bipolar diagnosis and a taper dose was ordered. The theraputic mg goal for patient carbidopa will be tapered down to 25./100 tid and will slowly taper over a period of 6 days so for tomorrow 09/15 he will get 25/100mg in the am then afternoon and bedtime he will get his usual dose 50/100 then starting 09/18 he will get 25/100 for breakfast and 25/100 mg for afternoon and 50/100mg for bedtime then on 09/21 he will just get 25/100 tid. Patient lab values creat 1.4h and ast 52h discussed with Dr Galaviz no changes Per Dr Hartman D/C olanzepine qhs and start risperidone 2mg qhs. Patient wanted to call court appointed guardian to ask if he can call a few people per guardian patient is to make no phone calls and if his family calls here and gives the password then they are allowed to speak to him which they know the password and know that he is here per VISHNU Burns. Will continue to monitor patient.
[2020-09-14] MEDS: MELATONIN 3 MG TABLET PO SCH (20:29)
[2020-09-14] MEDS: TAMSULOSIN 0.4 MG CAP.ER.24H. PO SCH (20:29)
[2020-09-14] MEDS: traZODone 100 MG TABLET. PO SCH (20:31)
[2020-09-14] MEDS: QUEtiapine 100 MG TABLET. PO SCH (20:31)
[2020-09-14] MEDS: DIVALPROEX ER 500 MG TAB.ER.24H PO SCH (20:31)
[2020-09-14] MEDS: risperiDONE 2 MG TABLET. PO SCH (20:32)
[2020-09-14] MEDS: ACETAMINOPHEN 325 MG TABLET PO PRN (20:32)
[2020-09-14] MEDS: ATORVASTATIN CALCIUM 20 MG TABLET PO SCH (20:38)
--- NOTE | 2020-09-14 22:03 | PDOC ---
Exam Note: Joel Note: Please also refer to the separate dictated note~for this date of service dictated separately.~Patient seen individually. Discussed the patient with Nursing staff reviewed the chart.~Reviewed interim history and current functioning. Reviewed vital signs,~Labs/ Radiology~and current medications noted below. Continue current treatment with the changes noted in the dictated addendum note Assessment: Vital Signs/I&O: Vital Signs Date Time Temp Pulse Resp B/P (MAP) Pulse Ox O2 Delivery O2 Flow Rate FiO2 09/14/20 16:41 97.2 69 18 147/77 (100) 99 09/13/20 06:17 Room Air I & O 09/13/20 09/13/20 09/14/20 15:00 23:00 07:00 Intake Total 480 ml 720 ml Balance 480 ml 720 ml Labs: Laboratory Tests Test 09/14/20 07:50 09/14/20 12:06 09/14/20 17:12 09/14/20 19:26 Glucose (Fingerstick) 123 mg/dL (70-99) H 91 mg/dL (70-99) 118 mg/dL (70-99) H 207 mg/dL (70-99) H Current Medications: Meds: Laboratory Tests Test 09/14/20 07:50 09/14/20 12:06 09/14/20 17:12 09/14/20 19:26 Glucose (Fingerstick) 123 mg/dL 91 mg/dL 118 mg/dL 207 mg/dL Current Medications Medications (Trade) Dose Ordered Sig/Moe Route PRN Reason Start Time Stop Time Status Last Admin Dose Admin Acetaminophen (Tylenol) 650 mg PRN Q6HRS PRN PO MILD PAIN / TEMP > 100.3'F 09/12/20 01:00 09/14/20 20:32 Multi-Ingredient Ointment (Analgesic [place]) 1 miquel PRN QID PRN TP MUSCLE PAIN 09/12/20 01:00 Al Hydroxide/Mg Hydroxide (Mylanta Plus Xs) 15 ml PRN AFTMEALHC PRN PO DYSPEPSIA 09/12/20 01:00 Magnesium Hydroxide (Milk Of Magnesia) 2,400 mg PRN QHS PRN PO CONSTIPATION 09/12/20 01:00 Nicotine (Nicoderm Cq 21mg Patch) 1 patch DAILY TD 09/12/20 09:00 09/14/20 08:38 Alprazolam (Xanax) 0.5 mg TID PO 09/12/20 02:00 09/12/20 02:50 DC 09/12/20 02:01 Olanzapine (ZyPREXA) 5 mg HS PO 09/12/20 02:00 09/14/20 17:48 DC 09/13/20 20:20 Trazodone HCl (Desyrel) 100 mg HS PO 09/12/20 02:00 09/14/20 20:31 Benztropine Mesylate (Cogentin) 2 mg BID PO 09/12/20 02:00 09/12/20 02:51 DC 09/12/20 02:01 Melatonin (Melatonin) 9 mg HS PO 09/12/20 02:00 09/12/20 02:51 DC 09/12/20 02:01 Quetiapine Fumarate (SEROquel) 200 mg HS PO 09/12/20 02:00 09/14/20 20:31 Amlodipine Besylate (Norvasc) 10 mg DAILY PO 09/12/20 09:00 09/14/20 08:38 Calcium Polycarbophil (Fibercon) 625 mg DAILY PO 09/12/20 09:00 09/12/20 09:12 DC Carbidopa/Levodopa (Sinemet 25/100) 2 tab TID PO 09/12/20 09:00 09/14/20 22:00 DC 09/14/20 20:29 Cetirizine HCl (ZyrTEC) 10 mg PRN DAILY PRN PO ALLERGIES 09/12/20 02:30 Ferrous Sulfate (Feosol) 325 mg TIDWMEALS PO 09/12/20 08:00 09/14/20 16:26 Montelukast Sodium (Singulair) 10 mg DAILY PO 09/12/20 09:00 09/14/20 08:37 Artificial Tears (Artificial Tears) 1 drop PRN QID PRN OU DRY EYE 09/12/20 02:30 Tamsulosin HCl (Flomax) 0.4 mg HS PO 09/12/20 21:00 09/14/20 20:29 Lisinopril (Prinivil) 30 mg DAILY PO 09/12/20 09:00 09/14/20 08:39 Non-Formulary Medication (Loratadine ) 10 mg DAILY PO 09/12/20 09:00 09/12/20 02:37 DC Polyethylene Glycol (miraLAX) 17 gm DAILY PO 09/12/20 09:00 09/14/20 08:40 Non-Formulary Medication ([Diphen/Maalox/ Lido] ) 5 ml QID PRN PO Abdominal Pain 09/12/20 02:30 UNV Atorvastatin Calcium (Lipitor) 40 mg QHS PO 09/12/20 21:00 09/14/20 20:38 Carvedilol (Coreg) 25 mg BIDWMEALS PO 09/12/20 08:00 09/14/20 16:26 Simethicone (Gas-X) 80 mg PRN BID PRN PO GAS / BLOATING 09/12/20 02:45 Multi-Ingredient Mouthwash/Gargle (Magic Mouthwash) 10 ml PRN QID PRN PO MOUTH PAIN 09/12/20 09:00 Alprazolam (Xanax) 0.5 mg TID PO 09/12/20 09:00 09/14/20 20:38 Buspirone HCl (Buspar) 7.5 mg TID PO 09/12/20 03:00 09/14/20 20:30 Chlorpromazine HCl (Thorazine) 25 mg PRN BID PRN IV PSYCHOSIS 09/12/20 02:45 Melatonin (Melatonin) 9 mg QHS PO 09/12/20 21:00 09/14/20 20:29 Benztropine Mesylate (Cogentin) 2 mg BID PO 09/12/20 09:00 09/14/20 20:29 Insulin Human Lispro (HumaLOG) 0-9 UNITS TIDWMEALS SQ 09/12/20 08:00 09/13/20 17:33 Calcium Polycarbophil (Fibercon) 625 mg DAILY PO 09/12/20 09:00 09/14/20 08:37 Haloperidol Lactate (Haldol) 5 mg DAILY IM 09/13/20 11:00 09/14/20 08:38 Lorazepam (Ativan Inj) 1 mg 1X ONCE IM 09/13/20 10:45 09/13/20 10:56 DC 09/13/20 11:08 Lorazepam (Ativan Inj) 1 mg DAILY IM 09/13/20 11:00 Divalproex Sodium (Depakote Er) 500 mg QHS PO 09/13/20 21:00 09/14/20 20:31 Carbidopa/Levodopa (Sinemet 25/100) 1 tab DAILY08 PO 09/15/20 08:00 09/17/20 08:01 Carbidopa/Levodopa (Sinemet 25/100) 2 tab 1400,2100 PO 09/15/20 14:00 09/17/20 21:01 Carbidopa/Levodopa (Sinemet 25/100) 1 tab TID PO 09/21/20 09:00 Carbidopa/Levodopa (Sinemet 25/100) 1 tab 0900,1400 PO 09/18/20 09:00 09/20/20 14:01 Carbidopa/Levodopa (Sinemet 25/100) 2 tab QHS PO 09/18/20 21:00 09/20/20 21:01 Risperidone (RisperDAL) 2 mg QHS PO 09/14/20 21:00 09/14/20 20:32 Current Medications Medications (Trade) Dose Ordered Sig/Moe Route PRN Reason Start Time Stop Time Status Last Admin Dose Admin Risperidone (RisperDAL) 2 mg QHS PO 09/14/20 21:00 09/14/20 20:32 I have reviewed the current psychotropics carefully including drug interactions. Risk benefit ratio favors no change other than as noted in my dictated progress note. Diagnosis: Problems: (1) Schizoaffective disorder, bipolar type (2) Impulse control disorder, unspecified (3) Anxiety disorder, unspecified (4) Bipolar disorder, current episode manic, severe with psychotic features BRIGIDA WOMACK MD Sep 14, 2020 22:03
--- NOTE | 2020-09-15 01:10 | NUR ---
Nursing note: Pt was not hyperverbal/manic for this RN, sat calmly watching a movie in day room during assessment, walked the halls only intermittently. Pt c/o mild pain, resolved by tylenol. At approx. 0045, this RN was notified by UND[employer] that pt stated he had fallen. On assessment, pt stated he lost balance while urinating, bumping into wall. Pt said he did not hurt, but did c/o ringing in ears, which he said has been ongoing.
[2020-09-15 06:09] VITALS: BP 116/73
--- NOTE | 2020-09-15 06:36 | PDOC ---
Exam Note: Joel Note: This note is a late entry for 09/14/2020 covers elements not covered in my initial note. Subjective: The patient was seen individually in the evening of 09/14/2020 with Faraz ROONEY, discussed and reviewed the chart. The patient slept 2-1/2 hours previous night. He is less hyperverbal, less manic, more redirectable. I met with him in his room. He did get Haldol 5 mg IM today as well but we will change the Zyprexa 5 mg h.s. to Risperdal 2 mg h.s. Maintain Seroquel 200 mg h.s. Consider stopping IM scheduled Haldol in [address] Palencia has reduced the patients Sinemet which should help with some of the psychosis as well. Review of Systems: Ambulation impaired in Broda chair. No CV, , pulmonary, eye, ENT system symptoms on review. Mental Status Exam: The patient is oriented to himself and situation. Speech rapid, coherent. Abstraction fair. Computation impaired. Language function intact. Attention span short. Mood and affect remains labile, grandiose. Laboratory Data: Reviewed. Impression: Bipolar disorder manic with psychotic features. Anxiety disorder unspecified. Impulse control disorder unspecified. Schizoaffective disorder, bipolar type, manic with psychotic features. Plan: We will make further adjustments in psychotropics as noted above and later as clinically indicated. Assessment: Vital Signs/I&O: Vital Signs Date Time Temp Pulse Resp B/P (MAP) Pulse Ox O2 Delivery O2 Flow Rate FiO2 09/15/20 06:09 97.1 69 18 116/73 (87) 100 Room Air I & O 09/14/20 09/14/20 09/15/20 15:00 23:00 07:00 Intake Total 840 ml 240 ml 360 ml Balance 840 ml 240 ml 360 ml Labs: Laboratory Tests Test 09/14/20 07:50 09/14/20 12:06 09/14/20 17:12 09/14/20 19:26 Glucose (Fingerstick) 123 mg/dL (70-99) H 91 mg/dL (70-99) 118 mg/dL (70-99) H 207 mg/dL (70-99) H Current Medications: Meds: Laboratory Tests Test 09/14/20 07:50 09/14/20 12:06 09/14/20 17:12 09/14/20 19:26 Glucose (Fingerstick) 123 mg/dL 91 mg/dL 118 mg/dL 207 mg/dL Current Medications Medications (Trade) Dose Ordered Sig/Moe Route PRN Reason Start Time Stop Time Status Last Admin Dose Admin Acetaminophen (Tylenol) 650 mg PRN Q6HRS PRN PO MILD PAIN / TEMP > 100.3'F 09/12/20 01:00 09/14/20 20:32 Multi-Ingredient Ointment (Analgesic Sunspot) 1 miquel PRN QID PRN TP MUSCLE PAIN 09/12/20 01:00 Al Hydroxide/Mg Hydroxide (Mylanta Plus Xs) 15 ml PRN AFTMEALHC PRN PO DYSPEPSIA 09/12/20 01:00 Magnesium Hydroxide (Milk Of Magnesia) 2,400 mg PRN QHS PRN PO CONSTIPATION 09/12/20 01:00 Nicotine (Nicoderm Cq 21mg Patch) 1 patch DAILY TD 09/12/20 09:00 09/14/20 08:38 Alprazolam (Xanax) 0.5 mg TID PO 09/12/20 02:00 09/12/20 02:50 DC 09/12/20 02:01 Olanzapine (ZyPREXA) 5 mg HS PO 09/12/20 02:00 09/14/20 17:48 DC 09/13/20 20:20 Trazodone HCl (Desyrel) 100 mg HS PO 09/12/20 02:00 09/14/20 20:31 Benztropine Mesylate (Cogentin) 2 mg BID PO 09/12/20 02:00 09/12/20 02:51 DC 09/12/20 02:01 Melatonin (Melatonin) 9 mg HS PO 09/12/20 02:00 09/12/20 02:51 DC 09/12/20 02:01 Quetiapine Fumarate (SEROquel) 200 mg HS PO 09/12/20 02:00 09/14/20 20:31 Amlodipine Besylate (Norvasc) 10 mg DAILY PO 09/12/20 09:00 09/14/20 08:38 Calcium Polycarbophil (Fibercon) 625 mg DAILY PO 09/12/20 09:00 09/12/20 09:12 DC Carbidopa/Levodopa (Sinemet 25/100) 2 tab TID PO 09/12/20 09:00 09/14/20 22:00 DC 09/14/20 20:29 Cetirizine HCl (ZyrTEC) 10 mg PRN DAILY PRN PO ALLERGIES 09/12/20 02:30 Ferrous Sulfate (Feosol) 325 mg TIDWMEALS PO 09/12/20 08:00 09/14/20 16:26 Montelukast Sodium (Singulair) 10 mg DAILY PO 09/12/20 09:00 09/14/20 08:37 Artificial Tears (Artificial Tears) 1 drop PRN QID PRN OU DRY EYE 09/12/20 02:30 Tamsulosin HCl (Flomax) 0.4 mg HS PO 09/12/20 21:00 09/14/20 20:29 Lisinopril (Prinivil) 30 mg DAILY PO 09/12/20 09:00 09/14/20 08:39 Non-Formulary Medication (Loratadine ) 10 mg DAILY PO 09/12/20 09:00 09/12/20 02:37 DC Polyethylene Glycol (miraLAX) 17 gm DAILY PO 09/12/20 09:00 09/14/20 08:40 Non-Formulary Medication ([Diphen/Maalox/ Lido] ) 5 ml QID PRN PO Abdominal Pain 09/12/20 02:30 UNV Atorvastatin Calcium (Lipitor) 40 mg QHS PO 09/12/20 21:00 09/14/20 20:38 Carvedilol (Coreg) 25 mg BIDWMEALS PO 09/12/20 08:00 09/14/20 16:26 Simethicone (Gas-X) 80 mg PRN BID PRN PO GAS / BLOATING 09/12/20 02:45 Multi-Ingredient Mouthwash/Gargle (Magic Mouthwash) 10 ml PRN QID PRN PO MOUTH PAIN 09/12/20 09:00 Alprazolam (Xanax) 0.5 mg TID PO 09/12/20 09:00 09/14/20 20:38 Buspirone HCl (Buspar) 7.5 mg TID PO 09/12/20 03:00 09/14/20 20:30 Chlorpromazine HCl (Thorazine) 25 mg PRN BID PRN IV PSYCHOSIS 09/12/20 02:45 Melatonin (Melatonin) 9 mg QHS PO 09/12/20 21:00 09/14/20 20:29 Benztropine Mesylate (Cogentin) 2 mg BID PO 09/12/20 09:00 09/14/20 20:29 Insulin Human Lispro (HumaLOG) 0-9 UNITS TIDWMEALS SQ 09/12/20 08:00 09/13/20 17:33 Calcium Polycarbophil (Fibercon) 625 mg DAILY PO 09/12/20 09:00 09/14/20 08:37 Haloperidol Lactate (Haldol) 5 mg DAILY IM 09/13/20 11:00 09/14/20 08:38 Lorazepam (Ativan Inj) 1 mg 1X ONCE IM 09/13/20 10:45 09/13/20 10:56 DC 09/13/20 11:08 Lorazepam (Ativan Inj) 1 mg DAILY IM 09/13/20 11:00 Divalproex Sodium (Depakote Er) 500 mg QHS PO 09/13/20 21:00 09/14/20 20:31 Carbidopa/Levodopa (Sinemet 25/100) 1 tab DAILY08 PO 09/15/20 08:00 09/17/20 08:01 Carbidopa/Levodopa (Sinemet 25/100) 2 tab 1400,2100 PO 09/15/20 14:00 09/17/20 21:01 Carbidopa/Levodopa (Sinemet 25/100) 1 tab TID PO 09/21/20 09:00 Carbidopa/Levodopa (Sinemet 25/100) 1 tab 0900,1400 PO 09/18/20 09:00 09/20/20 14:01 Carbidopa/Levodopa (Sinemet 25/100) 2 tab QHS PO 09/18/20 21:00 09/20/20 21:01 Risperidone (RisperDAL) 2 mg QHS PO 09/14/20 21:00 09/14/20 20:32 Current Medications Medications (Trade) Dose Ordered Sig/Moe Route PRN Reason Start Time Stop Time Status Last Admin Dose Admin Risperidone (RisperDAL) 2 mg QHS PO 09/14/20 21:00 09/14/20 20:32 I have reviewed the current psychotropics carefully including drug interactions. Risk benefit ratio favors no change other than as noted in my dictated progress note. Diagnosis: Problems: (1) Schizoaffective disorder, bipolar type (2) Impulse control disorder, unspecified (3) Anxiety disorder, unspecified (4) Bipolar disorder, current episode manic, severe with psychotic features BRIGIDA WOMACK MD Sep 15, 2020 06:36
[2020-09-15] MEDS: INSULIN LISPRO 300 UNITS/3 ML VIAL. SQ SCH ×3 (08:00→16:16)
[2020-09-15] MEDS: NICOTINE 21MG PATCH. TD SCH (08:39)
[2020-09-15] MEDS: CALCIUM POLYCARBOPHIL 625 MG TABLET PO SCH (08:39)
[2020-09-15] MEDS: amLODIPine BESYLATE 10 MG TABLET PO SCH (08:40)
[2020-09-15] MEDS: BENZTROPINE MESYLATE 1 MG TABLET PO SCH ×2 (08:40→20:47)
[2020-09-15] MEDS: MONTELUKAST 10 MG TABLET. PO SCH (08:40)
[2020-09-15] MEDS: FERROUS SULFATE 325 MG TABLET. PO SCH ×3 (08:40→16:14)
[2020-09-15] MEDS: busPIRone 15 MG TABLET. PO SCH ×2 (08:40→13:07)
[2020-09-15] MEDS: CARVEDILOL 12.5 MG TABLET PO SCH ×2 (08:40→16:14)
[2020-09-15] MEDS: CARBIDOPA/LEVODOPA 25/100MG TABLET PO SCH ×3 (08:40→20:47)
[2020-09-15] MEDS: LISINOPRIL 10 MG TABLET PO SCH (08:41)
[2020-09-15] MEDS: POLYETHYLENE GLYCOL 3350 17 GM PACKET. PO SCH (08:41)
[2020-09-15] MEDS: ALPRAZolam 0.5 MG TABLET PO SCH ×4 (08:53→20:48)
[2020-09-15] MEDS: HALOPERIDOL LACT 5 MG/ML VIAL. IM SCH (08:53)
[2020-09-15 15:54] VITALS: BP 130/77
--- NOTE | 2020-09-15 17:00 | NUR ---
No behaviors today to report and patient less verbal infact he was lethargic and slightly staggering he stated he did not get much rest last night because he was given too many meds so today I held off on all his am sedatig Addendum: 09/15/20 at 1704 by PHOEBE KOO RN Sedative medications patient alert x4 appetite ok for breakfast and poor for lunch patient in the dining room at this time eating dinner. Patient med compliant and cooperative. Patient seen by Dr Galaviz no new orders to report, ambulatory around the unit, patient a lot less lethargic after lunch so he was given his xanax PO without any adverse reactions or rebound lethargy. Will continue to monitor patient. Addendum: 09/15/20 at 1737 by PHOEBE KOO RN Per Dr Devan hernandez
[2020-09-15] MEDS: ATORVASTATIN CALCIUM 20 MG TABLET PO SCH (20:47)
[2020-09-15] MEDS: TAMSULOSIN 0.4 MG CAP.ER.24H. PO SCH (20:47)
[2020-09-15] MEDS: MELATONIN 3 MG TABLET PO SCH (20:47)
[2020-09-15] MEDS: risperiDONE 2 MG TABLET. PO SCH (20:47)
[2020-09-15] MEDS: DIVALPROEX ER 500 MG TAB.ER.24H PO SCH (20:47)
[2020-09-15] MEDS: traZODone 100 MG TABLET. PO SCH (20:47)
--- NOTE | 2020-09-15 21:59 | PDOC ---
Exam Note: Joel Note: Please also refer to the separate dictated note~for this date of service dictated separately.~Patient seen individually. Discussed the patient with Nursing staff reviewed the chart.~Reviewed interim history and current functioning. Reviewed vital signs,~Labs/ Radiology~and current medications noted below. Continue current treatment with the changes noted in the dictated addendum note Assessment: Vital Signs/I&O: Vital Signs Date Time Temp Pulse Resp B/P (MAP) Pulse Ox O2 Delivery O2 Flow Rate FiO2 09/15/20 16:14 66 130/77 09/15/20 15:54 96.9 20 100 09/15/20 06:09 Room Air I & O 09/14/20 09/14/20 09/15/20 14:59 22:59 06:59 Intake Total 840 ml 240 ml 360 ml Balance 840 ml 240 ml 360 ml Labs: Laboratory Tests Test 09/15/20 07:52 09/15/20 11:30 09/15/20 16:15 09/15/20 19:31 Glucose (Fingerstick) 111 mg/dL (70-99) H 131 mg/dL (70-99) H 143 mg/dL (70-99) H 110 mg/dL (70-99) H Current Medications: Meds: Laboratory Tests Test 09/15/20 07:52 09/15/20 11:30 09/15/20 16:15 09/15/20 19:31 Glucose (Fingerstick) 111 mg/dL 131 mg/dL 143 mg/dL 110 mg/dL Current Medications Medications (Trade) Dose Ordered Sig/Moe Route PRN Reason Start Time Stop Time Status Last Admin Dose Admin Acetaminophen (Tylenol) 650 mg PRN Q6HRS PRN PO MILD PAIN / TEMP > 100.3'F 09/12/20 01:00 09/14/20 20:32 Multi-Ingredient Ointment (Analgesic Elliott) 1 miquel PRN QID PRN TP MUSCLE PAIN 09/12/20 01:00 Al Hydroxide/Mg Hydroxide (Mylanta Plus Xs) 15 ml PRN AFTMEALHC PRN PO DYSPEPSIA 09/12/20 01:00 Magnesium Hydroxide (Milk Of Magnesia) 2,400 mg PRN QHS PRN PO CONSTIPATION 09/12/20 01:00 Nicotine (Nicoderm Cq 21mg Patch) 1 patch DAILY TD 09/12/20 09:00 09/15/20 08:39 Alprazolam (Xanax) 0.5 mg TID PO 09/12/20 02:00 09/12/20 02:50 DC 09/12/20 02:01 Olanzapine (ZyPREXA) 5 mg HS PO 09/12/20 02:00 09/14/20 17:48 DC 09/13/20 20:20 Trazodone HCl (Desyrel) 100 mg HS PO 09/12/20 02:00 09/15/20 20:47 Benztropine Mesylate (Cogentin) 2 mg BID PO 09/12/20 02:00 09/12/20 02:51 DC 09/12/20 02:01 Melatonin (Melatonin) 9 mg HS PO 09/12/20 02:00 09/12/20 02:51 DC 09/12/20 02:01 Quetiapine Fumarate (SEROquel) 200 mg HS PO 09/12/20 02:00 09/15/20 17:39 DC 09/14/20 20:31 Amlodipine Besylate (Norvasc) 10 mg DAILY PO 09/12/20 09:00 09/15/20 08:40 Calcium Polycarbophil (Fibercon) 625 mg DAILY PO 09/12/20 09:00 09/12/20 09:12 DC Carbidopa/Levodopa (Sinemet 25/100) 2 tab TID PO 09/12/20 09:00 09/14/20 22:00 DC 09/14/20 20:29 Cetirizine HCl (ZyrTEC) 10 mg PRN DAILY PRN PO ALLERGIES 09/12/20 02:30 Ferrous Sulfate (Feosol) 325 mg TIDWMEALS PO 09/12/20 08:00 09/15/20 16:14 Montelukast Sodium (Singulair) 10 mg DAILY PO 09/12/20 09:00 09/15/20 08:40 Artificial Tears (Artificial Tears) 1 drop PRN QID PRN OU DRY EYE 09/12/20 02:30 Tamsulosin HCl (Flomax) 0.4 mg HS PO 09/12/20 21:00 09/15/20 20:47 Lisinopril (Prinivil) 30 mg DAILY PO 09/12/20 09:00 09/15/20 08:41 Non-Formulary Medication (Loratadine ) 10 mg DAILY PO 09/12/20 09:00 09/12/20 02:37 DC Polyethylene Glycol (miraLAX) 17 gm DAILY PO 09/12/20 09:00 09/15/20 08:41 Non-Formulary Medication ([Diphen/Maalox/ Lido] ) 5 ml QID PRN PO Abdominal Pain 09/12/20 02:30 UNV Atorvastatin Calcium (Lipitor) 40 mg QHS PO 09/12/20 21:00 09/15/20 20:47 Carvedilol (Coreg) 25 mg BIDWMEALS PO 09/12/20 08:00 09/15/20 16:14 Simethicone (Gas-X) 80 mg PRN BID PRN PO GAS / BLOATING 09/12/20 02:45 Multi-Ingredient Mouthwash/Gargle (Magic Mouthwash) 10 ml PRN QID PRN PO MOUTH PAIN 09/12/20 09:00 Alprazolam (Xanax) 0.5 mg TID PO 09/12/20 09:00 09/15/20 20:48 Buspirone HCl (Buspar) 7.5 mg TID PO 09/12/20 03:00 09/15/20 17:39 DC 09/15/20 13:07 Chlorpromazine HCl (Thorazine) 25 mg PRN BID PRN IV PSYCHOSIS 09/12/20 02:45 Melatonin (Melatonin) 9 mg QHS PO 09/12/20 21:00 09/15/20 20:47 Benztropine Mesylate (Cogentin) 2 mg BID PO 09/12/20 09:00 09/15/20 20:47 Insulin Human Lispro (HumaLOG) 0-9 UNITS TIDWMEALS SQ 09/12/20 08:00 09/13/20 17:33 Calcium Polycarbophil (Fibercon) 625 mg DAILY PO 09/12/20 09:00 09/15/20 08:39 Haloperidol Lactate (Haldol) 5 mg DAILY IM 09/13/20 11:00 09/14/20 08:38 Lorazepam (Ativan Inj) 1 mg 1X ONCE IM 09/13/20 10:45 09/13/20 10:56 DC 09/13/20 11:08 Lorazepam (Ativan Inj) 1 mg DAILY IM 09/13/20 11:00 Divalproex Sodium (Depakote Er) 500 mg QHS PO 09/13/20 21:00 09/15/20 20:47 Carbidopa/Levodopa (Sinemet 25/100) 1 tab DAILY08 PO 09/15/20 08:00 09/17/20 08:01 09/15/20 08:40 Carbidopa/Levodopa (Sinemet 25/100) 2 tab 1400,2100 PO 09/15/20 14:00 09/17/20 21:01 09/15/20 20:47 Carbidopa/Levodopa (Sinemet 25/100) 1 tab TID PO 09/21/20 09:00 Carbidopa/Levodopa (Sinemet 25/100) 1 tab 0900,1400 PO 09/18/20 09:00 09/20/20 14:01 Carbidopa/Levodopa (Sinemet 25/100) 2 tab QHS PO 09/18/20 21:00 09/20/20 21:01 Risperidone (RisperDAL) 2 mg QHS PO 09/14/20 21:00 09/15/20 20:47 Current Medications Medications (Trade) Dose Ordered Sig/Moe Route PRN Reason Start Time Stop Time Status Last Admin Dose Admin Carbidopa/Levodopa (Sinemet 25/100) 1 tab DAILY08 PO 09/15/20 08:00 09/17/20 08:01 09/15/20 08:40 Carbidopa/Levodopa (Sinemet 25/100) 2 tab 1400,2100 PO 09/15/20 14:00 09/17/20 21:01 09/15/20 20:47 I have reviewed the current psychotropics carefully including drug interactions. Risk benefit ratio favors no change other than as noted in my dictated progress note. Diagnosis: Problems: (1) Schizoaffective disorder, bipolar type (2) Impulse control disorder, unspecified (3) Anxiety disorder, unspecified (4) Bipolar disorder, current episode manic, severe with psychotic features BRIGIDA WOMACK MD Sep 15, 2020 21:59
--- NOTE | 2020-09-15 23:33 | CONS ---
DATE OF CONSULTATION: 09/14/2020 NEUROLOGY CONSULTATION REFERRING PHYSICIAN: Dr. Hartman. REASON FOR CONSULTATION: Evaluation of his Parkinson's disease and medications. HISTORY OF PRESENT ILLNESS: This is a 65-year-old right-handed male who was admitted on 09/11/2020 on account of exacerbation of his schizoaffective disorder of bipolar manic along with intermittent psychotic features. The patient was initially referred to geropsychiatric unit from emergency room at [facility]. He was markedly paranoid with a delusion and visual hallucinations. Neuro consult was requested because the patient has a history of Parkinson disease diagnosed approximately 4 years ago. Currently, the patient denies headaches, visual disturbances, nausea, vomiting, chest pain, shortness of breath or palpitation, dysarthria, dysphagia, weakness or paresthesia. The patient denies any difficulty getting in and out of bed or frequent falls. He has been on carbidopa/levodopa 25/100 two tablets 3 times daily. PAST MEDICAL HISTORY: Significant for hypertension, diabetes mellitus type 2, GERD, hyperlipidemia and generalized arthritis. PAST SURGICAL HISTORY: Positive for tonsillectomy and joint replacement. SOCIAL HISTORY: The patient is a smoker. He denies alcohol drinking or illicit drug use. CURRENT MEDICATIONS: Carbidopa/levodopa 25/100 two tablets t.i.d., Risperdal 2 mg at bedtime, valproic acid 500 mg at bedtime, lorazepam 1 mg IM p.r.n. for agitation, haloperidol 5 mg IM daily, melatonin 9 mg at bedtime for insomnia, Lipitor 40 mg at bedtime, tamsulosin 0.4 mg at bedtime, benztropine 2 mg b.i.d., alprazolam 0.5 mg t.i.d., lisinopril 30 mg p.o. daily, amlodipine 10 mg p.o. daily, nicotine patch, insulin subcutaneously, carvedilol 25 mg twice daily, ferrous sulfate 325 mg t.i.d., buspirone 7.5 mg t.i.d., Thorazine 25 mg b.i.d. IV p.r.n. for psychosis, cetirizine 10 mg p.r.n. daily for allergies, Seroquel 200 mg at bedtime, trazodone 100 mg at bedtime, Tylenol p.r.n. FAMILY HISTORY: Positive for heart disease. ALLERGIES: PENICILLIN, VICODIN, AMINOGLYCOSIDE, CIPRO, GENTAMICIN, MORPHINE, KEFLEX, TETRACYCLINE, SULFA DRUGS, DICYCLOMINE AND POSSIBLE METOPROLOL. PAST PSYCHIATRIC HISTORY: Significant for schizoaffective disorders, anxiety and depression. REVIEW OF SYSTEMS: A 12-point review of system was performed as mentioned above in history of present illness, otherwise unremarkable. PHYSICAL EXAMINATION: GENERAL: Well-developed, well-nourished male in no acute distress. VITAL SIGNS: He weighs 72 kilos. Blood pressure 130/75, respiratory rate 18, pulse is 71 and regular, oxygen saturation 99% on room air. HEENT: Normocephalic, atraumatic, otherwise unremarkable. NECK: Supple, negative for carotid bruit, lymphadenopathy or thyromegaly. LUNGS: Clear to A and P. HEART: Regular rhythm. Normal S1, S2. There is no S3, S4 or murmur. ABDOMEN: Soft. Bowel sounds positive. EXTREMITIES: Negative for cyanosis, clubbing or pedal edema. NEUROLOGIC: Mental status: The patient is alert and oriented x3. Speech is fluent. There is no language dysfunction. Memory, judgment and abstracting thinkings are fair. The patient denies hallucination or delusion. He demonstrated a flight of idea. His mood is manic and grandiose and is paranoid. He denies hallucination at this time. Cranial nerves: Visual reeder are full. The pupils are reactive to light and accommodation. The extraocular movements are intact. There is no nystagmus. There is no facial motor or sensory deficits. Hearing is intact bilaterally. The palate is elevated symmetrically. Sternocleidomastoid muscles are powerful bilaterally. The patient shrugs his shoulders symmetrically and protrudes his tongue in the midline without fasciculation or atrophy. Motor examination: No focal muscle bulk wasting. The tone is normal. The strength is 5/5 throughout. The patient does not have any resting tremor. Sensory examination revealed normal pinprick, light touch, vibratory and position senses. Deep tendon reflexes were asymmetric and hypoactive without pathology responses. Gait: The stance is steady. The patient stands normally and walk without assistance. He swings his upper extremities during walking. He did return around easily without significant problems. LABORATORY DATA: From 09/12/2020, CBC revealed white blood cells of 8.2 thousand, hemoglobin 14.5, hematocrit 42.6, platelet count 215,000. Chemistry revealed a sodium of 138, potassium 4.3, chloride 100, CO2 24, BUN 17, creatinine 1.4, glucose 147, calcium is 9.9. A1c is 6.6. TIBC is normal. Iron saturation is 20. Liver enzymes revealed a slightly elevated AST with normal ALT. Lipid profile is normal with high HDL at 86, normal vitamin B12, vitamin D and thyroid profile. D-dimer is 0.31. IMPRESSION: 1. History of Parkinson disease with no significant parkinsonism at this time. 2. Multiple medical problems include hypertension, hyperlipidemia, diabetes mellitus, degenerative joint disease. 3. Multiple psychiatric problems including schizoaffective disorders, bipolar and anxiety disorders. RECOMMENDATION: 1. We will taper carbidopa, levodopa slowly and remove by cutting down one tablet every third day to continue at 25/100 t.i.d. 2. We will continue with current medical and psychiatric care. ROLANDO DR: Mary TID: [id number]
[2020-09-16] MEDS: ACETAMINOPHEN 325 MG TABLET PO PRN (01:46)
[2020-09-16 06:19] VITALS: BP 127/90
[2020-09-16 07:39] LABS: BASO % 1 % (0-3); EOS # 0.1 x10^3/uL (0.0-0.7); EOS % 1 % (0-3); HEMOGLOBIN 13.3 g/dL (13.0-17.5); LYMPH # 1.4 x10^3/uL (1.0-4.8); LYMPH % 30 % (24-48); MEAN CORPUSCULAR HEMOGLOBIN 31 pg (25-35); MEAN CORPUSCULAR HGB CONC 33 g/dL (31-37); MEAN CORPUSCULAR VOLUME 92 fL (79-100); MONO # 0.6 x10^3/uL (0.0-1.1); MONO % 12 % (0-9); NEUT # 2.7 x10^3uL (1.8-7.7); NEUT % 57 % (31-73); PLATELET COUNT 189 x10^3/uL (140-400); RED BLOOD COUNT 4.35 x10^6/uL (4.30-5.70); RED CELL DISTRIBUTION WIDTH 14.7 % (11.5-14.5); WHITE BLOOD COUNT 4.8 x10^3/uL (4.0-11.0)
[2020-09-16 07:55] LABS: ALBUMIN 3.8 g/dL (3.4-5.0); ALBUMIN/GLOBULIN RATIO 1.4 (1.0-1.7); ALK PHOS 79 U/L (46-116); ALT (SGPT) 42 U/L (16-63); ANION GAP 7 (6-14); AST (SGOT) 36 U/L (15-37); BLOOD UREA NITROGEN 12 mg/dL (8-26); BUN/CREATININE RATIO 13 (6-20); CALCIUM 9.3 mg/dL (8.5-10.1); CARBON DIOXIDE 27 mmol/L (21-32); CHLORIDE 103 mmol/L (98-107); CREATININE 0.9 mg/dL (0.7-1.3); GFR 84.7; GLUCOSE 138 mg/dL (70-99); POTASSIUM 4.2 mmol/L (3.5-5.1); SODIUM 137 mmol/L (136-145); TOTAL BILIRUBIN 0.5 mg/dL (0.2-1.0); TOTAL PROTEIN 6.6 g/dL (6.4-8.2)
[2020-09-16 07:58] LABS: VAL ACID 49 mcg/mL (50-100)
[2020-09-16] MEDS: INSULIN LISPRO 300 UNITS/3 ML VIAL. SQ SCH ×3 (08:00→17:50)
[2020-09-16] MEDS: LISINOPRIL 10 MG TABLET PO SCH (08:20)
[2020-09-16] MEDS: NICOTINE 21MG PATCH. TD SCH (08:21)
[2020-09-16] MEDS: ALPRAZolam 0.5 MG TABLET PO SCH ×3 (08:22→20:48)
[2020-09-16] MEDS: MONTELUKAST 10 MG TABLET. PO SCH (08:22)
[2020-09-16] MEDS: CALCIUM POLYCARBOPHIL 625 MG TABLET PO SCH (08:22)
[2020-09-16] MEDS: CARVEDILOL 12.5 MG TABLET PO SCH ×2 (08:22→18:41)
[2020-09-16] MEDS: amLODIPine BESYLATE 10 MG TABLET PO SCH (08:22)
[2020-09-16] MEDS: FERROUS SULFATE 325 MG TABLET. PO SCH ×3 (08:22→17:47)
[2020-09-16] MEDS: CARBIDOPA/LEVODOPA 25/100MG TABLET PO SCH ×3 (08:23→20:50)
[2020-09-16] MEDS: BENZTROPINE MESYLATE 1 MG TABLET PO SCH ×2 (08:23→20:47)
[2020-09-16] MEDS: POLYETHYLENE GLYCOL 3350 17 GM PACKET. PO SCH (08:28)
[2020-09-16] MEDS: HALOPERIDOL LACT 5 MG/ML VIAL. IM SCH (09:58)
--- NOTE | 2020-09-16 10:00 | PDOC ---
Exam Note: Joel Note: This note is a late entry for 09/15/2020 covers elements not covered in my initial note. Subjective: The patient was seen individually in the evening of 09/15/2020 with Faraz ROONEY, discussed and reviewed the chart. The patient slept 2 hours previous night. We will add an extra dosage of trazodone h.s. p.r.n. for insomnia. He was somewhat sedated in the morning because he had not slept at night but then was more awake in the afternoon. As I met with him in his room, he was talking extensively about wanting to be discharged prematurely and I addressed this at length with him the pros and cons for this. Review of Systems: Ambulation impaired in Broda chair. No CV, , pulmonary, e ye, ENT system symptoms on review. Mental Status Exam: The patient is oriented to himself and situation. Speech rapid, coherent. Abstraction fair. Computation impaired. Language function intact. Attention span short. Mood and affect less labile. Laboratory Data: Reviewed. Impression: Bipolar disorder manic with psychotic features. Anxiety disorder unspecified. Impulse control disorder unspecified. Schizoaffective disorder, bipolar type, manic with psychotic features. Plan: We will go ahead and stop the Seroquel 200 mg h.s., BuSpar 7.5 mg t.i.d. Check valproic acid level and add an extra dosage of trazodone h.s. p.r.n. for insomnia. Rest unchanged. Dr. Palencia has reduced his Sinemet and that itself is helping his manic symptoms. Assessment: Vital Signs/I&O: Vital Signs Date Time Temp Pulse Resp B/P (MAP) Pulse Ox O2 Delivery O2 Flow Rate FiO2 09/16/20 08:22 78 127/90 09/16/20 06:19 97.9 18 97 Room Air I & O 09/15/20 09/15/20 09/16/20 15:00 23:00 07:00 Intake Total 1080 ml 960 ml Balance 1080 ml 960 ml Labs: Laboratory Tests Test 09/15/20 11:30 09/15/20 16:15 09/15/20 19:31 09/16/20 07:12 Glucose (Fingerstick) 131 mg/dL (70-99) H 143 mg/dL (70-99) H 110 mg/dL (70-99) H White Blood Count 4.8 x10^3/uL (4.0-11.0) Red Blood Count 4.35 x10^6/uL (4.30-5.70) Hemoglobin 13.3 g/dL (13.0-17.5) Hematocrit 40.0 % (39.0-53.0) Mean Corpuscular Volume 92 fL (79-100) Mean Corpuscular Hemoglobin 31 pg (25-35) Mean Corpuscular Hemoglobin Concent 33 g/dL (31-37) Red Cell Distribution Width 14.7 % (11.5-14.5) H Platelet Count 189 x10^3/uL (140-400) Neutrophils (%) (Auto) 57 % (31-73) Lymphocytes (%) (Auto) 30 % (24-48) Monocytes (%) (Auto) 12 % (0-9) H Eosinophils (%) (Auto) 1 % (0-3) Basophils (%) (Auto) 1 % (0-3) Neutrophils # (Auto) 2.7 x10^3uL (1.8-7.7) Lymphocytes # (Auto) 1.4 x10^3/uL (1.0-4.8) Monocytes # (Auto) 0.6 x10^3/uL (0.0-1.1) Eosinophils # (Auto) 0.1 x10^3/uL (0.0-0.7) Basophils # (Auto) 0.0 x10^3/uL (0.0-0.2) Sodium Level 137 mmol/L (136-145) Potassium Level 4.2 mmol/L (3.5-5.1) Chloride Level 103 mmol/L (98-107) Carbon Dioxide Level 27 mmol/L (21-32) Anion Gap 7 (6-14) Blood Urea Nitrogen 12 mg/dL (8-26) Creatinine 0.9 mg/dL (0.7-1.3) Estimated GFR (Cockcroft-Gault) 84.7 BUN/Creatinine Ratio 13 (6-20) Glucose Level 138 mg/dL (70-99) H Calcium Level 9.3 mg/dL (8.5-10.1) Total Bilirubin 0.5 mg/dL (0.2-1.0) Aspartate Amino Transferase (AST) 36 U/L (15-37) Alanine Aminotransferase (ALT) 42 U/L (16-63) Alkaline Phosphatase 79 U/L (46-116) Total Protein 6.6 g/dL (6.4-8.2) Albumin 3.8 g/dL (3.4-5.0) Albumin/Globulin Ratio 1.4 (1.0-1.7) Valproic Acid Level 49 mcg/mL (50-100) L Valproic Acid Last Dose Date 09/15/2020 Valproic Acid Last Dose Time 2100 Test 09/16/20 07:23 Glucose (Fingerstick) 118 mg/dL (70-99) H Current Medications: Meds: Laboratory Tests Test 09/15/20 11:30 09/15/20 16:15 09/15/20 19:31 09/16/20 07:12 Glucose (Fingerstick) 131 mg/dL 143 mg/dL 110 mg/dL White Blood Count 4.8 x10^3/uL Red Blood Count 4.35 x10^6/uL Hemoglobin 13.3 g/dL Hematocrit 40.0 % Mean Corpuscular Volume 92 fL Mean Corpuscular Hemoglobin 31 pg Mean Corpuscular Hemoglobin Concent 33 g/dL Red Cell Distribution Width 14.7 % Platelet Count 189 x10^3/uL Neutrophils (%) (Auto) 57 % Lymphocytes (%) (Auto) 30 % Monocytes (%) (Auto) 12 % Eosinophils (%) (Auto) 1 % Basophils (%) (Auto) 1 % Neutrophils # (Auto) 2.7 x10^3uL Lymphocytes # (Auto) 1.4 x10^3/uL Monocytes # (Auto) 0.6 x10^3/uL Eosinophils # (Auto) 0.1 x10^3/uL Basophils # (Auto) 0.0 x10^3/uL Sodium Level 137 mmol/L Potassium Level 4.2 mmol/L Chloride Level 103 mmol/L Carbon Dioxide Level 27 mmol/L Anion Gap 7 Blood Urea Nitrogen 12 mg/dL Creatinine 0.9 mg/dL Estimated GFR (Cockcroft-Gault) 84.7 BUN/Creatinine Ratio 13 Glucose Level 138 mg/dL Calcium Level 9.3 mg/dL Total Bilirubin 0.5 mg/dL Aspartate Amino Transf (AST/SGOT) 36 U/L Alanine Aminotransferase (ALT/SGPT) 42 U/L Alkaline Phosphatase 79 U/L Total Protein 6.6 g/dL Albumin 3.8 g/dL Albumin/Globulin Ratio 1.4 Valproic Acid (Depakene) Level 49 mcg/mL Valproic Acid Last Dose Date 09/15/2020 Valproic Acid Last Dose Time 2100 Test 09/16/20 07:23 Glucose (Fingerstick) 118 mg/dL Current Medications Medications (Trade) Dose Ordered Sig/Moe Route PRN Reason Start Time Stop Time Status Last Admin Dose Admin Acetaminophen (Tylenol) 650 mg PRN Q6HRS PRN PO MILD PAIN / TEMP > 100.3'F 09/12/20 01:00 09/16/20 01:46 Multi-Ingredient Ointment (Analgesic [place]) 1 miquel PRN QID PRN TP MUSCLE PAIN 09/12/20 01:00 Al Hydroxide/Mg Hydroxide (Mylanta Plus Xs) 15 ml PRN AFTMEALHC PRN PO DYSPEPSIA 09/12/20 01:00 Magnesium Hydroxide (Milk Of Magnesia) 2,400 mg PRN QHS PRN PO CONSTIPATION 09/12/20 01:00 Nicotine (Nicoderm Cq 21mg Patch) 1 patch DAILY TD 09/12/20 09:00 09/16/20 08:21 Alprazolam (Xanax) 0.5 mg TID PO 09/12/20 02:00 09/12/20 02:50 DC 09/12/20 02:01 Olanzapine (ZyPREXA) 5 mg HS PO 09/12/20 02:00 09/14/20 17:48 DC 09/13/20 20:20 Trazodone HCl (Desyrel) 100 mg HS PO 09/12/20 02:00 09/15/20 20:47 Benztropine Mesylate (Cogentin) 2 mg BID PO 09/12/20 02:00 09/12/20 02:51 DC 09/12/20 02:01 Melatonin (Melatonin) 9 mg HS PO 09/12/20 02:00 09/12/20 02:51 DC 09/12/20 02:01 Quetiapine Fumarate (SEROquel) 200 mg HS PO 09/12/20 02:00 09/15/20 17:39 DC 09/14/20 20:31 Amlodipine Besylate (Norvasc) 10 mg DAILY PO 09/12/20 09:00 09/16/20 08:22 Calcium Polycarbophil (Fibercon) 625 mg DAILY PO 09/12/20 09:00 09/12/20 09:12 DC Carbidopa/Levodopa (Sinemet 25/100) 2 tab TID PO 09/12/20 09:00 09/14/20 22:00 DC 09/14/20 20:29 Cetirizine HCl (ZyrTEC) 10 mg PRN DAILY PRN PO ALLERGIES 09/12/20 02:30 Ferrous Sulfate (Feosol) 325 mg TIDWMEALS PO 09/12/20 08:00 09/16/20 08:28 Montelukast Sodium (Singulair) 10 mg DAILY PO 09/12/20 09:00 09/16/20 08:22 Artificial Tears (Artificial Tears) 1 drop PRN QID PRN OU DRY EYE 09/12/20 02:30 Tamsulosin HCl (Flomax) 0.4 mg HS PO 09/12/20 21:00 09/15/20 20:47 Lisinopril (Prinivil) 30 mg DAILY PO 09/12/20 09:00 09/16/20 08:20 Non-Formulary Medication (Loratadine ) 10 mg DAILY PO 09/12/20 09:00 09/12/20 02:37 DC Polyethylene Glycol (miraLAX) 17 gm DAILY PO 09/12/20 09:00 09/15/20 08:41 Non-Formulary Medication ([Diphen/Maalox/ Lido] ) 5 ml QID PRN PO Abdominal Pain 09/12/20 02:30 UNV Atorvastatin Calcium (Lipitor) 40 mg QHS PO 09/12/20 21:00 09/15/20 20:47 Carvedilol (Coreg) 25 mg BIDWMEALS PO 09/12/20 08:00 09/16/20 08:22 Simethicone (Gas-X) 80 mg PRN BID PRN PO GAS / BLOATING 09/12/20 02:45 Multi-Ingredient Mouthwash/Gargle (Magic Mouthwash) 10 ml PRN QID PRN PO MOUTH PAIN 09/12/20 09:00 Alprazolam (Xanax) 0.5 mg TID PO 09/12/20 09:00 09/16/20 08:22 Buspirone HCl (Buspar) 7.5 mg TID PO 09/12/20 03:00 09/15/20 17:39 DC 09/15/20 13:07 Chlorpromazine HCl (Thorazine) 25 mg PRN BID PRN IV PSYCHOSIS 09/12/20 02:45 Melatonin (Melatonin) 9 mg QHS PO 09/12/20 21:00 09/15/20 20:47 Benztropine Mesylate (Cogentin) 2 mg BID PO 09/12/20 09:00 09/16/20 08:23 Insulin Human Lispro (HumaLOG) 0-9 UNITS TIDWMEALS SQ 09/12/20 08:00 09/13/20 17:33 Calcium Polycarbophil (Fibercon) 625 mg DAILY PO 09/12/20 09:00 09/16/20 08:22 Haloperidol Lactate (Haldol) 5 mg DAILY IM 09/13/20 11:00 09/16/20 09:58 Lorazepam (Ativan Inj) 1 mg 1X ONCE IM 09/13/20 10:45 09/13/20 10:56 DC 09/13/20 11:08 Lorazepam (Ativan Inj) 1 mg DAILY IM 09/13/20 11:00 Divalproex Sodium (Depakote Er) 500 mg QHS PO 09/13/20 21:00 09/15/20 20:47 Carbidopa/Levodopa (Sinemet 25/100) 1 tab DAILY08 PO 09/15/20 08:00 09/17/20 08:01 09/16/20 08:23 Carbidopa/Levodopa (Sinemet 25/100) 2 tab 1400,2100 PO 09/15/20 14:00 09/17/20 21:01 09/15/20 20:47 Carbidopa/Levodopa (Sinemet 25/100) 1 tab TID PO 09/21/20 09:00 Carbidopa/Levodopa (Sinemet 25/100) 1 tab 0900,1400 PO 09/18/20 09:00 09/20/20 14:01 Carbidopa/Levodopa (Sinemet 25/100) 2 tab QHS PO 09/18/20 21:00 09/20/20 21:01 Risperidone (RisperDAL) 2 mg QHS PO 09/14/20 21:00 09/15/20 20:47 Current Medications Medications (Trade) Dose Ordered Sig/Moe Route PRN Reason Start Time Stop Time Status Last Admin Dose Admin Carbidopa/Levodopa (Sinemet 25/100) 2 tab 1400,2100 PO 09/15/20 14:00 09/17/20 21:01 09/15/20 20:47 I have reviewed the current psychotropics carefully including drug interactions. Risk benefit ratio favors no change other than as noted in my dictated progress note. Diagnosis: Problems: (1) Schizoaffective disorder, bipolar type (2) Impulse control disorder, unspecified (3) Anxiety disorder, unspecified (4) Bipolar disorder, current episode manic, severe with psychotic features BRIGIDA WOMACK MD Sep 16, 2020 10:00
--- NOTE | 2020-09-16 14:50 | NUR ---
Nursing note: Client was not hyperverbal/manic for this nurse, he was in dinning room for morning medication & assessment; took pills whole without difficulty. Calm in room most of the day walked the halls and through day room intermittently. Client denies pain at this time, reported last BM on 09-15. Continue with treatment plan. Client is currently walking in pulido. Will continue to monitor.
[2020-09-16 16:06] VITALS: BP 148/96
[2020-09-16] MEDS: MELATONIN 3 MG TABLET PO SCH (20:47)
[2020-09-16] MEDS: risperiDONE 1 MG TABLET. PO SCH (20:48)
[2020-09-16] MEDS: ATORVASTATIN CALCIUM 20 MG TABLET PO SCH (20:49)
[2020-09-16] MEDS: TAMSULOSIN 0.4 MG CAP.ER.24H. PO SCH (20:49)
[2020-09-16] MEDS: traZODone 100 MG TABLET. PO SCH (20:49)
[2020-09-16] MEDS: DIVALPROEX ER 500 MG TAB.ER.24H PO SCH (20:50)
--- NOTE | 2020-09-16 22:08 | PDOC ---
Exam Note: Joel Note: Please also refer to the separate dictated note~for this date of service dictated separately.~Patient seen individually. Discussed the patient with Nursing staff reviewed the chart.~Reviewed interim history and current functioning. Reviewed vital signs,~Labs/ Radiology~and current medications noted below. Continue current treatment with the changes noted in the dictated addendum note Assessment: Vital Signs/I&O: Vital Signs Date Time Temp Pulse Resp B/P (MAP) Pulse Ox O2 Delivery O2 Flow Rate FiO2 09/16/20 18:41 75 148/96 09/16/20 16:06 96.7 20 100 09/16/20 06:19 Room Air I & O 09/15/20 09/15/20 09/16/20 15:00 23:00 07:00 Intake Total 1080 ml 960 ml Balance 1080 ml 960 ml Labs: Laboratory Tests Test 09/16/20 07:12 09/16/20 07:23 09/16/20 11:33 09/16/20 16:47 White Blood Count 4.8 x10^3/uL (4.0-11.0) Red Blood Count 4.35 x10^6/uL (4.30-5.70) Hemoglobin 13.3 g/dL (13.0-17.5) Hematocrit 40.0 % (39.0-53.0) Mean Corpuscular Volume 92 fL (79-100) Mean Corpuscular Hemoglobin 31 pg (25-35) Mean Corpuscular Hemoglobin Concent 33 g/dL (31-37) Red Cell Distribution Width 14.7 % (11.5-14.5) H Platelet Count 189 x10^3/uL (140-400) Neutrophils (%) (Auto) 57 % (31-73) Lymphocytes (%) (Auto) 30 % (24-48) Monocytes (%) (Auto) 12 % (0-9) H Eosinophils (%) (Auto) 1 % (0-3) Basophils (%) (Auto) 1 % (0-3) Neutrophils # (Auto) 2.7 x10^3uL (1.8-7.7) Lymphocytes # (Auto) 1.4 x10^3/uL (1.0-4.8) Monocytes # (Auto) 0.6 x10^3/uL (0.0-1.1) Eosinophils # (Auto) 0.1 x10^3/uL (0.0-0.7) Basophils # (Auto) 0.0 x10^3/uL (0.0-0.2) Sodium Level 137 mmol/L (136-145) Potassium Level 4.2 mmol/L (3.5-5.1) Chloride Level 103 mmol/L (98-107) Carbon Dioxide Level 27 mmol/L (21-32) Anion Gap 7 (6-14) Blood Urea Nitrogen 12 mg/dL (8-26) Creatinine 0.9 mg/dL (0.7-1.3) Estimated GFR (Cockcroft-Gault) 84.7 BUN/Creatinine Ratio 13 (6-20) Glucose Level 138 mg/dL (70-99) H Calcium Level 9.3 mg/dL (8.5-10.1) Total Bilirubin 0.5 mg/dL (0.2-1.0) Aspartate Amino Transferase (AST) 36 U/L (15-37) Alanine Aminotransferase (ALT) 42 U/L (16-63) Alkaline Phosphatase 79 U/L (46-116) Total Protein 6.6 g/dL (6.4-8.2) Albumin 3.8 g/dL (3.4-5.0) Albumin/Globulin Ratio 1.4 (1.0-1.7) Valproic Acid Level 49 mcg/mL (50-100) L Valproic Acid Last Dose Date 09/15/2020 Valproic Acid Last Dose Time 2100 Glucose (Fingerstick) 118 mg/dL (70-99) H 91 mg/dL (70-99) 217 mg/dL (70-99) H Test 09/16/20 19:09 Glucose (Fingerstick) 133 mg/dL (70-99) H Current Medications: Meds: Laboratory Tests Test 09/16/20 07:12 09/16/20 07:23 09/16/20 11:33 09/16/20 16:47 White Blood Count 4.8 x10^3/uL Red Blood Count 4.35 x10^6/uL Hemoglobin 13.3 g/dL Hematocrit 40.0 % Mean Corpuscular Volume 92 fL Mean Corpuscular Hemoglobin 31 pg Mean Corpuscular Hemoglobin Concent 33 g/dL Red Cell Distribution Width 14.7 % Platelet Count 189 x10^3/uL Neutrophils (%) (Auto) 57 % Lymphocytes (%) (Auto) 30 % Monocytes (%) (Auto) 12 % Eosinophils (%) (Auto) 1 % Basophils (%) (Auto) 1 % Neutrophils # (Auto) 2.7 x10^3uL Lymphocytes # (Auto) 1.4 x10^3/uL Monocytes # (Auto) 0.6 x10^3/uL Eosinophils # (Auto) 0.1 x10^3/uL Basophils # (Auto) 0.0 x10^3/uL Sodium Level 137 mmol/L Potassium Level 4.2 mmol/L Chloride Level 103 mmol/L Carbon Dioxide Level 27 mmol/L Anion Gap 7 Blood Urea Nitrogen 12 mg/dL Creatinine 0.9 mg/dL Estimated GFR (Cockcroft-Gault) 84.7 BUN/Creatinine Ratio 13 Glucose Level 138 mg/dL Calcium Level 9.3 mg/dL Total Bilirubin 0.5 mg/dL Aspartate Amino Transf (AST/SGOT) 36 U/L Alanine Aminotransferase (ALT/SGPT) 42 U/L Alkaline Phosphatase 79 U/L Total Protein 6.6 g/dL Albumin 3.8 g/dL Albumin/Globulin Ratio 1.4 Valproic Acid (Depakene) Level 49 mcg/mL Valproic Acid Last Dose Date 09/15/2020 Valproic Acid Last Dose Time 2100 Glucose (Fingerstick) 118 mg/dL 91 mg/dL 217 mg/dL Test 09/16/20 19:09 Glucose (Fingerstick) 133 mg/dL Current Medications Medications (Trade) Dose Ordered Sig/Moe Route PRN Reason Start Time Stop Time Status Last Admin Dose Admin Acetaminophen (Tylenol) 650 mg PRN Q6HRS PRN PO MILD PAIN / TEMP > 100.3'F 09/12/20 01:00 09/16/20 01:46 Multi-Ingredient Ointment (Analgesic [place]) 1 miquel PRN QID PRN TP MUSCLE PAIN 09/12/20 01:00 Al Hydroxide/Mg Hydroxide (Mylanta Plus Xs) 15 ml PRN AFTMEALHC PRN PO DYSPEPSIA 09/12/20 01:00 Magnesium Hydroxide (Milk Of Magnesia) 2,400 mg PRN QHS PRN PO CONSTIPATION 09/12/20 01:00 Nicotine (Nicoderm Cq 21mg Patch) 1 patch DAILY TD 09/12/20 09:00 09/16/20 08:21 Alprazolam (Xanax) 0.5 mg TID PO 09/12/20 02:00 09/12/20 02:50 DC 09/12/20 02:01 Olanzapine (ZyPREXA) 5 mg HS PO 09/12/20 02:00 09/14/20 17:48 DC 09/13/20 20:20 Trazodone HCl (Desyrel) 100 mg HS PO 09/12/20 02:00 09/16/20 20:49 Benztropine Mesylate (Cogentin) 2 mg BID PO 09/12/20 02:00 09/12/20 02:51 DC 09/12/20 02:01 Melatonin (Melatonin) 9 mg HS PO 09/12/20 02:00 09/12/20 02:51 DC 09/12/20 02:01 Quetiapine Fumarate (SEROquel) 200 mg HS PO 09/12/20 02:00 09/15/20 17:39 DC 09/14/20 20:31 Amlodipine Besylate (Norvasc) 10 mg DAILY PO 09/12/20 09:00 09/16/20 08:22 Calcium Polycarbophil (Fibercon) 625 mg DAILY PO 09/12/20 09:00 09/12/20 09:12 DC Carbidopa/Levodopa (Sinemet 25/100) 2 tab TID PO 09/12/20 09:00 09/14/20 22:00 DC 09/14/20 20:29 Cetirizine HCl (ZyrTEC) 10 mg PRN DAILY PRN PO ALLERGIES 09/12/20 02:30 Ferrous Sulfate (Feosol) 325 mg TIDWMEALS PO 09/12/20 08:00 09/16/20 17:47 Montelukast Sodium (Singulair) 10 mg DAILY PO 09/12/20 09:00 09/16/20 08:22 Artificial Tears (Artificial Tears) 1 drop PRN QID PRN OU DRY EYE 09/12/20 02:30 Tamsulosin HCl (Flomax) 0.4 mg HS PO 09/12/20 21:00 09/16/20 20:49 Lisinopril (Prinivil) 30 mg DAILY PO 09/12/20 09:00 09/16/20 08:20 Non-Formulary Medication (Loratadine ) 10 mg DAILY PO 09/12/20 09:00 09/12/20 02:37 DC Polyethylene Glycol (miraLAX) 17 gm DAILY PO 09/12/20 09:00 09/15/20 08:41 Non-Formulary Medication ([Diphen/Maalox/ Lido] ) 5 ml QID PRN PO Abdominal Pain 09/12/20 02:30 UNV Atorvastatin Calcium (Lipitor) 40 mg QHS PO 09/12/20 21:00 09/16/20 20:49 Carvedilol (Coreg) 25 mg BIDWMEALS PO 09/12/20 08:00 09/16/20 18:41 Simethicone (Gas-X) 80 mg PRN BID PRN PO GAS / BLOATING 09/12/20 02:45 Multi-Ingredient Mouthwash/Gargle (Magic Mouthwash) 10 ml PRN QID PRN PO MOUTH PAIN 09/12/20 09:00 Alprazolam (Xanax) 0.5 mg TID PO 09/12/20 09:00 09/16/20 20:48 Buspirone HCl (Buspar) 7.5 mg TID PO 09/12/20 03:00 09/15/20 17:39 DC 09/15/20 13:07 Chlorpromazine HCl (Thorazine) 25 mg PRN BID PRN IV PSYCHOSIS 09/12/20 02:45 Melatonin (Melatonin) 9 mg QHS PO 09/12/20 21:00 09/16/20 20:47 Benztropine Mesylate (Cogentin) 2 mg BID PO 09/12/20 09:00 09/16/20 20:47 Insulin Human Lispro (HumaLOG) 0-9 UNITS TIDWMEALS SQ 09/12/20 08:00 09/16/20 17:50 Calcium Polycarbophil (Fibercon) 625 mg DAILY PO 09/12/20 09:00 09/16/20 08:22 Haloperidol Lactate (Haldol) 5 mg DAILY IM 09/13/20 11:00 09/16/20 18:26 DC 09/16/20 09:58 Lorazepam (Ativan Inj) 1 mg 1X ONCE IM 09/13/20 10:45 09/13/20 10:56 DC 09/13/20 11:08 Lorazepam (Ativan Inj) 1 mg DAILY IM 09/13/20 11:00 Divalproex Sodium (Depakote Er) 500 mg QHS PO 09/13/20 21:00 09/16/20 20:50 Carbidopa/Levodopa (Sinemet 25/100) 1 tab DAILY08 PO 09/15/20 08:00 09/17/20 08:01 09/16/20 08:23 Carbidopa/Levodopa (Sinemet 25/100) 2 tab 1400,2100 PO 09/15/20 14:00 09/17/20 21:01 09/16/20 20:50 Carbidopa/Levodopa (Sinemet 25/100) 1 tab TID PO 09/21/20 09:00 Carbidopa/Levodopa (Sinemet 25/100) 1 tab 0900,1400 PO 09/18/20 09:00 09/20/20 14:01 Carbidopa/Levodopa (Sinemet 25/100) 2 tab QHS PO 09/18/20 21:00 09/20/20 21:01 Risperidone (RisperDAL) 2 mg QHS PO 09/14/20 21:00 09/16/20 18:26 DC 09/15/20 20:47 Risperidone (RisperDAL) 2.5 mg QHS PO 09/16/20 21:00 09/16/20 20:48 Current Medications Medications (Trade) Dose Ordered Sig/Moe Route PRN Reason Start Time Stop Time Status Last Admin Dose Admin Risperidone (RisperDAL) 2.5 mg QHS PO 09/16/20 21:00 09/16/20 20:48 I have reviewed the current psychotropics carefully including drug interactions. Risk benefit ratio favors no change other than as noted in my dictated progress note. Diagnosis: Problems: (1) Schizoaffective disorder, bipolar type (2) Impulse control disorder, unspecified (3) Anxiety disorder, unspecified (4) Bipolar disorder, current episode manic, severe with psychotic features BRIGIDA WOMACK MD Sep 16, 2020 22:08
--- NOTE | 2020-09-16 23:28 | NUR ---
Patient is located in his room for assessments and medications. 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 Compliant with assessments and medications taken whole. No hyperverbal or paranoid behavior displayed so far this shift. No delusions/hallucinations voiced. Patient denies any pain or discomfort. Denies SI. He appears to be sleeping comfortably at present time. Will continue to monitor.
[2020-09-17] MEDS: traZODone 100 MG TABLET. PO SCH ×2 (00:06→21:00)
[2020-09-17] MEDS: ACETAMINOPHEN 325 MG TABLET PO PRN (00:35)
--- NOTE | 2020-09-17 02:51 | PN ---
DATE: 09/15/2020 SUBJECTIVE: The patient denies any new medical or neurological complaints. He denies any tremor or stiffness of the body. He denies any recent falls or injuries. The patient was seen today and will start tapering his carbidopa/levodopa by one tablet 25/100 every third day to reach the goal of 1 tablet three times daily; however, we are going to monitor any exacerbation of his symptoms of his parkinsonism. OBJECTIVE: GENERAL: Well-developed, well-nourished male, not in acute distress. VITAL SIGNS: Blood pressure 130/77, respiratory rate 20, pulse is 66, oxygen saturation is 100% and temperature 96.9. HEENT: Normocephalic, atraumatic, otherwise unremarkable. NECK: Supple, negative for carotid bruit, lymphadenopathy or thyromegaly. LUNGS: Clear to A and P. CARDIOVASCULAR: Regular rate and rhythm. Normal S1 and S2. There is no S3, S4 or murmur. ABDOMEN: Soft. Bowel sounds positive. EXTREMITIES: Negative for cyanosis, clubbing or edema. NEUROLOGIC: Mental status: The patient is alert and oriented x 3. Speech is fluent. There is no language dysfunction, otherwise unremarkable. Cranial nerves are intact. No focal motor or sensory deficits. The tone is normal. Strength is 5/5 throughout. Sensory examination revealed normal pinprick and light touch senses. Deep tendon reflexes were asymmetric and active without pathologic responses. Gait and coordination are normal. IMPRESSION 1. Longstanding history of Parkinson disease, diagnosed 4 years ago; however, the patient has not been demonstrating any severe parkinsonism. 2. Multiple medical problems include hypertension, hyperlipidemia, diabetes mellitus and degenerative joint disease. 3. Multiple psychiatric problems include schizoaffective disorders, bipolar disorder and anxiety disorders. RECOMMENDATION: 1. Continue with carbidopa/levodopa as ordered in the neuro consult. 2. Continue with current medical and psychiatric care. MICKY/GILLIAN/ALEJANDRO DR: Mary TID: [id number]
--- NOTE | 2020-09-17 02:52 | PN ---
DATE: 09/16/2020 SUBJECTIVE: The patient denies any new medical or neurological complaints; however, he has been feeling better since we started tapering his Parkinson's medicines, carbidopa/levodopa. He slept very well last night and he feels more energetic. He denies headaches, visual disturbances or any other new neurological complaints. OBJECTIVE: GENERAL: Well-developed, well-nourished male, not in acute distress. VITAL SIGNS: Blood pressure 148/96, respiratory rate 20, pulse is 75, oxygen saturation 100% on room air. HEENT: Normocephalic, atraumatic, otherwise unremarkable. NECK: Supple, negative for carotid bruit, lymphadenopathy or thyromegaly. LUNGS: Clear to A and P. HEART: Regular rate and rhythm, normal S1, S2. ABDOMEN: Soft. Bowel sounds positive. EXTREMITIES: Negative for cyanosis, clubbing or pedal edema. NEUROLOGIC: Mental status: The patient is alert and oriented x 3. Speech is fluent. There is no language dysfunction. Judgement and abstracting thinking are fair. The patient denies hallucination or delusion. Cranial nerves are intact. No focal motor or sensory deficit. No obvious resting tremor. The tone is normal. Sensory examination revealed ____. Deep tendon reflexes were symmetric and active without pathologic responses. Gait and coordination are normal. IMPRESSION: 1. History of Parkinson disease. 2. Multiple medical problems include hypertension, hyperlipidemia, diabetes mellitus, degenerative joint disease. 3. Multiple psychiatric disorders including bipolar disorder, anxiety disorder, and schizoaffective disorders. RECOMMENDATION: 1. Continue with current neurological recommendations and tapering carbidopa/levodopa every third day to reach the optimal dose of 25/100 t.i.d. 2. We will continue with current medical and psychiatric care. The patient is neurologically stable. INGRID DR: Mary TID: [id number]
[2020-09-17 05:56] VITALS: BP 145/88
[2020-09-17] MEDS: INSULIN LISPRO 300 UNITS/3 ML VIAL. SQ SCH ×3 (08:00→17:00)
[2020-09-17] MEDS: NICOTINE 21MG PATCH. TD SCH (08:17)
[2020-09-17] MEDS: BENZTROPINE MESYLATE 1 MG TABLET PO SCH ×2 (08:18→20:42)
[2020-09-17] MEDS: CARBIDOPA/LEVODOPA 25/100MG TABLET PO SCH ×3 (08:18→20:41)
[2020-09-17] MEDS: MONTELUKAST 10 MG TABLET. PO SCH (08:18)
[2020-09-17] MEDS: FERROUS SULFATE 325 MG TABLET. PO SCH ×3 (08:18→17:21)
[2020-09-17] MEDS: ALPRAZolam 0.5 MG TABLET PO SCH ×3 (08:18→20:41)
[2020-09-17] MEDS: CALCIUM POLYCARBOPHIL 625 MG TABLET PO SCH (08:18)
[2020-09-17] MEDS: amLODIPine BESYLATE 10 MG TABLET PO SCH (08:18)
[2020-09-17] MEDS: CARVEDILOL 12.5 MG TABLET PO SCH ×2 (08:19→17:22)
[2020-09-17] MEDS: LISINOPRIL 10 MG TABLET PO SCH (08:19)
[2020-09-17] MEDS: POLYETHYLENE GLYCOL 3350 17 GM PACKET. PO SCH (08:21)
--- NOTE | 2020-09-17 09:31 | PDOC ---
Exam Note: Joel Note: This note is a late entry for 09/16/2020 covers elements not covered in my initial note. Subjective: The patient was seen individually in the evening of 09/16/2020 with Laury ROONEY, discussed and reviewed the chart. The patient slept 7-1/4 hours previous night. He did receive his IM Haldol today, somewhat less hyperverbal. We will increase Risperdal to 2.5 mg a day and plan to stop the IM Haldol tomorrow. I met with him at length in his room. He is very appreciative of the care and seemed to recognize how manic he was when he first came in. Review of Systems: Ambulation impaired in Broda chair. No CV, , pulmonary, eye, ENT system symptoms on review. Mental Status Exam: The patient is oriented to himself and situation. Speech coherent, less pressured.. Abstraction fair. Computation impaired. Language function intact. Attention span short. Mood and affect less grandiose, labile. Laboratory Data: Reviewed. Impression: Bipolar disorder manic with psychotic features. Anxiety disorder unspecified. Impulse control disorder unspecified. Schizoaffective disorder, bipolar type, manic with psychotic features. Plan: Continue current psychotropics. Increase Risperdal as noted above. Stop the IM Haldol tomorrow. Rest unchanged for now. Assessment: Vital Signs/I&O: Vital Signs Date Time Temp Pulse Resp B/P (MAP) Pulse Ox O2 Delivery O2 Flow Rate FiO2 09/17/20 08:19 65 145/88 09/17/20 05:56 97.4 18 99 Room Air I & O 09/16/20 09/16/20 09/17/20 15:00 23:00 07:00 Intake Total 840 ml 480 ml Balance 840 ml 480 ml Labs: Laboratory Tests Test 09/16/20 11:33 09/16/20 16:47 09/16/20 19:09 09/17/20 07:33 Glucose (Fingerstick) 91 mg/dL (70-99) 217 mg/dL (70-99) H 133 mg/dL (70-99) H 133 mg/dL (70-99) H Current Medications: Meds: Laboratory Tests Test 09/16/20 11:33 09/16/20 16:47 09/16/20 19:09 09/17/20 07:33 Glucose (Fingerstick) 91 mg/dL 217 mg/dL 133 mg/dL 133 mg/dL Current Medications Medications (Trade) Dose Ordered Sig/Moe Route PRN Reason Start Time Stop Time Status Last Admin Dose Admin Acetaminophen (Tylenol) 650 mg PRN Q6HRS PRN PO MILD PAIN / TEMP > 100.3'F 09/12/20 01:00 09/17/20 00:35 Multi-Ingredient Ointment (Analgesic [place]) 1 miquel PRN QID PRN TP MUSCLE PAIN 09/12/20 01:00 Al Hydroxide/Mg Hydroxide (Mylanta Plus Xs) 15 ml PRN AFTMEALHC PRN PO DYSPEPSIA 09/12/20 01:00 Magnesium Hydroxide (Milk Of Magnesia) 2,400 mg PRN QHS PRN PO CONSTIPATION 09/12/20 01:00 Nicotine (Nicoderm Cq 21mg Patch) 1 patch DAILY TD 09/12/20 09:00 09/17/20 08:17 Alprazolam (Xanax) 0.5 mg TID PO 09/12/20 02:00 09/12/20 02:50 DC 09/12/20 02:01 Olanzapine (ZyPREXA) 5 mg HS PO 09/12/20 02:00 09/14/20 17:48 DC 09/13/20 20:20 Trazodone HCl (Desyrel) 100 mg HS PO 09/12/20 02:00 09/17/20 00:06 Benztropine Mesylate (Cogentin) 2 mg BID PO 09/12/20 02:00 09/12/20 02:51 DC 09/12/20 02:01 Melatonin (Melatonin) 9 mg HS PO 09/12/20 02:00 09/12/20 02:51 DC 09/12/20 02:01 Quetiapine Fumarate (SEROquel) 200 mg HS PO 09/12/20 02:00 09/15/20 17:39 DC 09/14/20 20:31 Amlodipine Besylate (Norvasc) 10 mg DAILY PO 09/12/20 09:00 09/17/20 08:18 Calcium Polycarbophil (Fibercon) 625 mg DAILY PO 09/12/20 09:00 09/12/20 09:12 DC Carbidopa/Levodopa (Sinemet 25/100) 2 tab TID PO 09/12/20 09:00 09/14/20 22:00 DC 09/14/20 20:29 Cetirizine HCl (ZyrTEC) 10 mg PRN DAILY PRN PO ALLERGIES 09/12/20 02:30 Ferrous Sulfate (Feosol) 325 mg TIDWMEALS PO 09/12/20 08:00 09/17/20 08:18 Montelukast Sodium (Singulair) 10 mg DAILY PO 09/12/20 09:00 09/17/20 08:18 Artificial Tears (Artificial Tears) 1 drop PRN QID PRN OU DRY EYE 09/12/20 02:30 Tamsulosin HCl (Flomax) 0.4 mg HS PO 09/12/20 21:00 09/16/20 20:49 Lisinopril (Prinivil) 30 mg DAILY PO 09/12/20 09:00 09/17/20 08:19 Non-Formulary Medication (Loratadine ) 10 mg DAILY PO 09/12/20 09:00 09/12/20 02:37 DC Polyethylene Glycol (miraLAX) 17 gm DAILY PO 09/12/20 09:00 09/17/20 08:21 Non-Formulary Medication ([Diphen/Maalox/ Lido] ) 5 ml QID PRN PO Abdominal Pain 09/12/20 02:30 UNV Atorvastatin Calcium (Lipitor) 40 mg QHS PO 09/12/20 21:00 09/16/20 20:49 Carvedilol (Coreg) 25 mg BIDWMEALS PO 09/12/20 08:00 09/17/20 08:19 Simethicone (Gas-X) 80 mg PRN BID PRN PO GAS / BLOATING 09/12/20 02:45 Multi-Ingredient Mouthwash/Gargle (Magic Mouthwash) 10 ml PRN QID PRN PO MOUTH PAIN 09/12/20 09:00 Alprazolam (Xanax) 0.5 mg TID PO 09/12/20 09:00 09/17/20 08:18 Buspirone HCl (Buspar) 7.5 mg TID PO 09/12/20 03:00 09/15/20 17:39 DC 09/15/20 13:07 Chlorpromazine HCl (Thorazine) 25 mg PRN BID PRN IV PSYCHOSIS 09/12/20 02:45 Melatonin (Melatonin) 9 mg QHS PO 09/12/20 21:00 09/16/20 20:47 Benztropine Mesylate (Cogentin) 2 mg BID PO 09/12/20 09:00 09/17/20 08:18 Insulin Human Lispro (HumaLOG) 0-9 UNITS TIDWMEALS SQ 09/12/20 08:00 09/16/20 17:50 Calcium Polycarbophil (Fibercon) 625 mg DAILY PO 09/12/20 09:00 09/17/20 08:18 Haloperidol Lactate (Haldol) 5 mg DAILY IM 09/13/20 11:00 09/16/20 18:26 DC 09/16/20 09:58 Lorazepam (Ativan Inj) 1 mg 1X ONCE IM 09/13/20 10:45 09/13/20 10:56 DC 09/13/20 11:08 Lorazepam (Ativan Inj) 1 mg DAILY IM 09/13/20 11:00 Divalproex Sodium (Depakote Er) 500 mg QHS PO 09/13/20 21:00 09/16/20 20:50 Carbidopa/Levodopa (Sinemet 25/100) 1 tab DAILY08 PO 09/15/20 08:00 09/17/20 08:01 DC 09/17/20 08:18 Carbidopa/Levodopa (Sinemet 25/100) 2 tab 1400,2100 PO 09/15/20 14:00 09/17/20 21:01 09/16/20 20:50 Carbidopa/Levodopa (Sinemet 25/100) 1 tab TID PO 09/21/20 09:00 Carbidopa/Levodopa (Sinemet 25/100) 1 tab 0900,1400 PO 09/18/20 09:00 09/20/20 14:01 Carbidopa/Levodopa (Sinemet 25/100) 2 tab QHS PO 09/18/20 21:00 09/20/20 21:01 Risperidone (RisperDAL) 2 mg QHS PO 09/14/20 21:00 09/16/20 18:26 DC 09/15/20 20:47 Risperidone (RisperDAL) 2.5 mg QHS PO 09/16/20 21:00 09/16/20 20:48 Current Medications Medications (Trade) Dose Ordered Sig/Moe Route PRN Reason Start Time Stop Time Status Last Admin Dose Admin Risperidone (RisperDAL) 2.5 mg QHS PO 09/16/20 21:00 09/16/20 20:48 I have reviewed the current psychotropics carefully including drug interactions. Risk benefit ratio favors no change other than as noted in my dictated progress note. Diagnosis: Problems: (1) Schizoaffective disorder, bipolar type (2) Impulse control disorder, unspecified (3) Anxiety disorder, unspecified (4) Bipolar disorder, current episode manic, severe with psychotic features BRIGIDA WOMACK MD Sep 17, 2020 09:31
--- NOTE | 2020-09-17 09:56 | NUR ---
Nursing note: Client was not hyperverbal/manic this shift, he was in the dinning room for assessments & morning medications. Pleasant demeanor, interactive and appropriate with staff & peers. Compliant with assessments and medications taken whole. No delusions/hallucinations voiced, denies any pain or discomfort. Client is currently in day room. Will continue to monitor.
[2020-09-17 16:10] VITALS: BP 114/76
[2020-09-17] MEDS: MELATONIN 3 MG TABLET PO SCH (20:40)
[2020-09-17] MEDS: ATORVASTATIN CALCIUM 20 MG TABLET PO SCH (20:40)
[2020-09-17] MEDS: risperiDONE 1 MG TABLET. PO SCH (20:41)
[2020-09-17] MEDS: TAMSULOSIN 0.4 MG CAP.ER.24H. PO SCH (20:41)
[2020-09-17] MEDS: DIVALPROEX ER 250 MG TAB.ER.24H. PO SCH (20:42)
--- NOTE | 2020-09-17 22:02 | PDOC ---
Exam Note: Joel Note: Please also refer to the separate dictated note~for this date of service dictated separately.~Patient seen individually. Discussed the patient with Nursing staff reviewed the chart.~Reviewed interim history and current functioning. Reviewed vital signs,~Labs/ Radiology~and current medications noted below. Continue current treatment with the changes noted in the dictated addendum note Assessment: Vital Signs/I&O: Vital Signs Date Time Temp Pulse Resp B/P (MAP) Pulse Ox O2 Delivery O2 Flow Rate FiO2 09/17/20 17:22 77 114/76 09/17/20 16:10 97.3 18 100 09/17/20 05:56 Room Air I & O 09/16/20 09/16/20 09/17/20 15:00 23:00 07:00 Intake Total 840 ml 480 ml Balance 840 ml 480 ml Labs: Laboratory Tests Test 09/17/20 07:33 09/17/20 11:34 09/17/20 16:32 09/17/20 19:12 Glucose (Fingerstick) 133 mg/dL (70-99) H 94 mg/dL (70-99) 123 mg/dL (70-99) H 147 mg/dL (70-99) H Current Medications: Meds: Laboratory Tests Test 09/17/20 07:33 09/17/20 11:34 09/17/20 16:32 09/17/20 19:12 Glucose (Fingerstick) 133 mg/dL 94 mg/dL 123 mg/dL 147 mg/dL Current Medications Medications (Trade) Dose Ordered Sig/Moe Route PRN Reason Start Time Stop Time Status Last Admin Dose Admin Acetaminophen (Tylenol) 650 mg PRN Q6HRS PRN PO MILD PAIN / TEMP > 100.3'F 09/12/20 01:00 09/17/20 00:35 Multi-Ingredient Ointment (Analgesic [place]) 1 miquel PRN QID PRN TP MUSCLE PAIN 09/12/20 01:00 Al Hydroxide/Mg Hydroxide (Mylanta Plus Xs) 15 ml PRN AFTMEALHC PRN PO DYSPEPSIA 09/12/20 01:00 Magnesium Hydroxide (Milk Of Magnesia) 2,400 mg PRN QHS PRN PO CONSTIPATION 09/12/20 01:00 Nicotine (Nicoderm Cq 21mg Patch) 1 patch DAILY TD 09/12/20 09:00 09/17/20 08:17 Alprazolam (Xanax) 0.5 mg TID PO 09/12/20 02:00 09/12/20 02:50 DC 09/12/20 02:01 Olanzapine (ZyPREXA) 5 mg HS PO 09/12/20 02:00 09/14/20 17:48 DC 09/13/20 20:20 Trazodone HCl (Desyrel) 100 mg HS PO 09/12/20 02:00 09/17/20 20:50 DC 09/17/20 00:06 Benztropine Mesylate (Cogentin) 2 mg BID PO 09/12/20 02:00 09/12/20 02:51 DC 09/12/20 02:01 Melatonin (Melatonin) 9 mg HS PO 09/12/20 02:00 09/12/20 02:51 DC 09/12/20 02:01 Quetiapine Fumarate (SEROquel) 200 mg HS PO 09/12/20 02:00 09/15/20 17:39 DC 09/14/20 20:31 Amlodipine Besylate (Norvasc) 10 mg DAILY PO 09/12/20 09:00 09/17/20 08:18 Calcium Polycarbophil (Fibercon) 625 mg DAILY PO 09/12/20 09:00 09/12/20 09:12 DC Carbidopa/Levodopa (Sinemet 25/100) 2 tab TID PO 09/12/20 09:00 09/14/20 22:00 DC 09/14/20 20:29 Cetirizine HCl (ZyrTEC) 10 mg PRN DAILY PRN PO ALLERGIES 09/12/20 02:30 Ferrous Sulfate (Feosol) 325 mg TIDWMEALS PO 09/12/20 08:00 09/17/20 17:21 Montelukast Sodium (Singulair) 10 mg DAILY PO 09/12/20 09:00 09/17/20 08:18 Artificial Tears (Artificial Tears) 1 drop PRN QID PRN OU DRY EYE 09/12/20 02:30 Tamsulosin HCl (Flomax) 0.4 mg HS PO 09/12/20 21:00 09/17/20 20:41 Lisinopril (Prinivil) 30 mg DAILY PO 09/12/20 09:00 09/17/20 08:19 Non-Formulary Medication (Loratadine ) 10 mg DAILY PO 09/12/20 09:00 09/12/20 02:37 DC Polyethylene Glycol (miraLAX) 17 gm DAILY PO 09/12/20 09:00 09/17/20 08:21 Non-Formulary Medication ([Diphen/Maalox/ Lido] ) 5 ml QID PRN PO Abdominal Pain 09/12/20 02:30 UNV Atorvastatin Calcium (Lipitor) 40 mg QHS PO 09/12/20 21:00 09/17/20 20:40 Carvedilol (Coreg) 25 mg BIDWMEALS PO 09/12/20 08:00 09/17/20 17:22 Simethicone (Gas-X) 80 mg PRN BID PRN PO GAS / BLOATING 09/12/20 02:45 Multi-Ingredient Mouthwash/Gargle (Magic Mouthwash) 10 ml PRN QID PRN PO MOUTH PAIN 09/12/20 09:00 Alprazolam (Xanax) 0.5 mg TID PO 09/12/20 09:00 09/17/20 20:41 Buspirone HCl (Buspar) 7.5 mg TID PO 09/12/20 03:00 09/15/20 17:39 DC 09/15/20 13:07 Chlorpromazine HCl (Thorazine) 25 mg PRN BID PRN IV PSYCHOSIS 09/12/20 02:45 Melatonin (Melatonin) 9 mg QHS PO 09/12/20 21:00 09/17/20 20:40 Benztropine Mesylate (Cogentin) 2 mg BID PO 09/12/20 09:00 09/17/20 20:42 Insulin Human Lispro (HumaLOG) 0-9 UNITS TIDWMEALS SQ 09/12/20 08:00 09/16/20 17:50 Calcium Polycarbophil (Fibercon) 625 mg DAILY PO 09/12/20 09:00 09/17/20 08:18 Haloperidol Lactate (Haldol) 5 mg DAILY IM 09/13/20 11:00 09/16/20 18:26 DC 09/16/20 09:58 Lorazepam (Ativan Inj) 1 mg 1X ONCE IM 09/13/20 10:45 09/13/20 10:56 DC 09/13/20 11:08 Lorazepam (Ativan Inj) 1 mg DAILY IM 09/13/20 11:00 Divalproex Sodium (Depakote Er) 500 mg QHS PO 09/13/20 21:00 09/17/20 17:12 DC 09/16/20 20:50 Carbidopa/Levodopa (Sinemet 25/100) 1 tab DAILY08 PO 09/15/20 08:00 09/17/20 08:01 DC 09/17/20 08:18 Carbidopa/Levodopa (Sinemet 25/100) 2 tab 1400,2100 PO 09/15/20 14:00 09/17/20 21:01 DC 09/17/20 20:41 Carbidopa/Levodopa (Sinemet 25/100) 1 tab TID PO 09/21/20 09:00 Carbidopa/Levodopa (Sinemet 25/100) 1 tab 0900,1400 PO 09/18/20 09:00 09/20/20 14:01 Carbidopa/Levodopa (Sinemet 25/100) 2 tab QHS PO 09/18/20 21:00 09/20/20 21:01 Risperidone (RisperDAL) 2 mg QHS PO 09/14/20 21:00 09/16/20 18:26 DC 09/15/20 20:47 Risperidone (RisperDAL) 2.5 mg QHS PO 09/16/20 21:00 09/17/20 20:41 Divalproex Sodium (Depakote Er) 750 mg QHS PO 09/17/20 21:00 09/17/20 20:42 Trazodone HCl (Desyrel) 100 mg PRN QHS PRN PO INSOMNIA 09/17/20 20:45 Trazodone HCl (Desyrel) 100 mg QHS PO 09/17/20 21:00 09/17/20 21:00 Current Medications Medications (Trade) Dose Ordered Sig/Moe Route PRN Reason Start Time Stop Time Status Last Admin Dose Admin Divalproex Sodium (Depakote Er) 750 mg QHS PO 09/17/20 21:00 09/17/20 20:42 Trazodone HCl (Desyrel) 100 mg QHS PO 09/17/20 21:00 09/17/20 21:00 I have reviewed the current psychotropics carefully including drug interactions. Risk benefit ratio favors no change other than as noted in my dictated progress note. Diagnosis: Problems: (1) Schizoaffective disorder, bipolar type (2) Impulse control disorder, unspecified (3) Anxiety disorder, unspecified (4) Bipolar disorder, current episode manic, severe with psychotic features BRIGIDA WOMACK MD Sep 17, 2020 22:02
--- NOTE | 2020-09-17 23:18 | NUR ---
Patient is calm and compliant with medications, he is cooperative and interactive with staff. Patients speech is not rushed, he is able to stay on topic for conversations and is not manic at this time. No adverse behaviors noted at this time.
--- NOTE | 2020-09-17 23:20 | PN ---
DATE: 09/17/2020 SUBJECTIVE: The patient denies any new medical or neurological complaints. He denies rigidity or tremor, recent falls or injuries. The patient stated he has some difficulty to sleep last night. He denies headaches, visual disturbances, chest pain or shortness of breath. OBJECTIVE: GENERAL: Well-developed, well-nourished male in no acute distress. VITAL SIGNS: Blood pressure 145/88, respiratory rate 18, pulse is 65, temperature is 97.4, oxygen saturation 99% on room air. HEENT: Normocephalic, atraumatic, otherwise unremarkable. NECK: Supple, negative for carotid bruit, lymphadenopathy or thyromegaly. LUNGS: Clear to A and P. HEART: Regular rate and rhythm, normal S1, S2. There is no S3, S4 or murmur. ABDOMEN: Soft. Bowel sounds positive. EXTREMITIES: Negative for cyanosis, clubbing, or pitting edema. NEUROLOGIC: Mental Status: The patient is alert and oriented x 3. The speech is fluent. There is no language dysfunction. Memory, judgment and abstracting thinking are normal. The patient denies hallucination or delusion. Cranial nerves are intact. No focal motor or sensory deficit. The tone is normal. The patient has no obvious resting tremor. Deep tendon reflexes were symmetric and active without pathologic responses. Gait and coordination are normal. ASSESSMENT: 1. Longstanding history of Parkinson disease, but no evidence of parkinsonism symptoms at this time. 2. Multiple medical problems include hypertension, hyperlipidemia, diabetes mellitus and degenerative joint disease. 3. Multiple psychiatric problems include bipolar disorder, anxiety disorder and schizoaffective disorders. RECOMMENDATIONS: 1. We will continue with current medical and psychiatric care. 2. Continue his carbamazepine 200 mg t.i.d. TIFFANY/ALEJANDRO DR: MICKY/tomas TID: [id number]
[2020-09-18] MEDS: traZODone 100 MG TABLET. PO PRN ×2 (02:18→23:30)
--- NOTE | 2020-09-18 02:18 | NUR ---
Patient woke up and is unable to go back to sleep. PRN trazodone given per order for sleep. Will continue to monitor.
[2020-09-18 06:21] VITALS: BP 120/75
[2020-09-18] MEDS: ALPRAZolam 0.5 MG TABLET PO SCH ×3 (07:50→20:16)
[2020-09-18] MEDS: CALCIUM POLYCARBOPHIL 625 MG TABLET PO SCH (07:50)
[2020-09-18] MEDS: CARBIDOPA/LEVODOPA 25/100MG TABLET PO SCH ×3 (07:50→20:17)
[2020-09-18] MEDS: NICOTINE 21MG PATCH. TD SCH (07:51)
[2020-09-18] MEDS: LISINOPRIL 10 MG TABLET PO SCH (07:51)
[2020-09-18] MEDS: amLODIPine BESYLATE 10 MG TABLET PO SCH (07:52)
[2020-09-18] MEDS: MONTELUKAST 10 MG TABLET. PO SCH (07:52)
[2020-09-18] MEDS: CARVEDILOL 12.5 MG TABLET PO SCH ×2 (07:52→17:27)
[2020-09-18] MEDS: FERROUS SULFATE 325 MG TABLET. PO SCH ×3 (07:52→17:27)
[2020-09-18] MEDS: BENZTROPINE MESYLATE 1 MG TABLET PO SCH ×2 (07:53→20:17)
[2020-09-18] MEDS: POLYETHYLENE GLYCOL 3350 17 GM PACKET. PO SCH (07:53)
[2020-09-18] MEDS: INSULIN LISPRO 300 UNITS/3 ML VIAL. SQ SCH ×3 (08:00→17:38)
--- NOTE | 2020-09-18 09:12 | PDOC ---
Exam Note: Joel Note: This note is a late entry for 09/17/2020 covers elements not covered in my initial note. Subjective: The patient was seen individually in the evening of 09/17/2020 with Laury ROONEY, discussed and reviewed the chart. The patient slept 2 hours previous night. He received only one dosage of trazodone last night. We will make sure we will repeat it tonight. He has not had any IM Haldol. Valproic acid level is subtherapeutic at 49 and we will increase the Depakote ER from 500 mg h.s. to 750 mg h.s. Check CBC, CMP, valproic acid level in 3 days to reach therapeutic level. Review of Systems: Ambulation impaired in Broda chair. No CV, , pulmonary, eye, ENT system symptoms on review. Mental Status Exam: The patient is oriented to himself and situation. At times he seems a little forgetful. Speech coherent. Abstraction fair. Computation impaired. Language function intact. Attention span fair. Mood and affect somewhat improved. Laboratory Data: Reviewed. Impression: Bipolar disorder manic with psychotic features. Anxiety disorder unspecified. Impulse control disorder unspecified. Schizoaffective disorder, bipolar type, manic with psychotic features. Plan: Increase Depakote as above. Repeat trazodone. Rest unchanged from initial note. Assessment: Vital Signs/I&O: Vital Signs Date Time Temp Pulse Resp B/P (MAP) Pulse Ox O2 Delivery O2 Flow Rate FiO2 09/18/20 07:52 77 120/75 09/18/20 06:21 96.9 20 99 09/17/20 05:56 Room Air I & O 09/17/20 09/17/20 09/18/20 15:00 23:00 07:00 Intake Total 1140 ml 720 ml Balance 1140 ml 720 ml Labs: Laboratory Tests Test 09/17/20 11:34 09/17/20 16:32 09/17/20 19:12 09/18/20 07:47 Glucose (Fingerstick) 94 mg/dL (70-99) 123 mg/dL (70-99) H 147 mg/dL (70-99) H 109 mg/dL (70-99) H Current Medications: Meds: Laboratory Tests Test 09/17/20 11:34 09/17/20 16:32 09/17/20 19:12 09/18/20 07:47 Glucose (Fingerstick) 94 mg/dL 123 mg/dL 147 mg/dL 109 mg/dL Current Medications Medications (Trade) Dose Ordered Sig/Moe Route PRN Reason Start Time Stop Time Status Last Admin Dose Admin Acetaminophen (Tylenol) 650 mg PRN Q6HRS PRN PO MILD PAIN / TEMP > 100.3'F 09/12/20 01:00 09/17/20 00:35 Multi-Ingredient Ointment (Analgesic [place]) 1 miquel PRN QID PRN TP MUSCLE PAIN 09/12/20 01:00 Al Hydroxide/Mg Hydroxide (Mylanta Plus Xs) 15 ml PRN AFTMEALHC PRN PO DYSPEPSIA 09/12/20 01:00 Magnesium Hydroxide (Milk Of Magnesia) 2,400 mg PRN QHS PRN PO CONSTIPATION 09/12/20 01:00 Nicotine (Nicoderm Cq 21mg Patch) 1 patch DAILY TD 09/12/20 09:00 09/18/20 07:51 Alprazolam (Xanax) 0.5 mg TID PO 09/12/20 02:00 09/12/20 02:50 DC 09/12/20 02:01 Olanzapine (ZyPREXA) 5 mg HS PO 09/12/20 02:00 09/14/20 17:48 DC 09/13/20 20:20 Trazodone HCl (Desyrel) 100 mg HS PO 09/12/20 02:00 09/17/20 20:50 DC 09/17/20 00:06 Benztropine Mesylate (Cogentin) 2 mg BID PO 09/12/20 02:00 09/12/20 02:51 DC 09/12/20 02:01 Melatonin (Melatonin) 9 mg HS PO 09/12/20 02:00 09/12/20 02:51 DC 09/12/20 02:01 Quetiapine Fumarate (SEROquel) 200 mg HS PO 09/12/20 02:00 09/15/20 17:39 DC 09/14/20 20:31 Amlodipine Besylate (Norvasc) 10 mg DAILY PO 09/12/20 09:00 09/18/20 07:52 Calcium Polycarbophil (Fibercon) 625 mg DAILY PO 09/12/20 09:00 09/12/20 09:12 DC Carbidopa/Levodopa (Sinemet 25/100) 2 tab TID PO 09/12/20 09:00 09/14/20 22:00 DC 09/14/20 20:29 Cetirizine HCl (ZyrTEC) 10 mg PRN DAILY PRN PO ALLERGIES 09/12/20 02:30 Ferrous Sulfate (Feosol) 325 mg TIDWMEALS PO 09/12/20 08:00 09/18/20 07:52 Montelukast Sodium (Singulair) 10 mg DAILY PO 09/12/20 09:00 09/18/20 07:52 Artificial Tears (Artificial Tears) 1 drop PRN QID PRN OU DRY EYE 09/12/20 02:30 Tamsulosin HCl (Flomax) 0.4 mg HS PO 09/12/20 21:00 09/17/20 20:41 Lisinopril (Prinivil) 30 mg DAILY PO 09/12/20 09:00 09/18/20 07:51 Non-Formulary Medication (Loratadine ) 10 mg DAILY PO 09/12/20 09:00 09/12/20 02:37 DC Polyethylene Glycol (miraLAX) 17 gm DAILY PO 09/12/20 09:00 09/18/20 07:53 Non-Formulary Medication ([Diphen/Maalox/ Lido] ) 5 ml QID PRN PO Abdominal Pain 09/12/20 02:30 UNV Atorvastatin Calcium (Lipitor) 40 mg QHS PO 09/12/20 21:00 09/17/20 20:40 Carvedilol (Coreg) 25 mg BIDWMEALS PO 09/12/20 08:00 09/18/20 07:52 Simethicone (Gas-X) 80 mg PRN BID PRN PO GAS / BLOATING 09/12/20 02:45 Multi-Ingredient Mouthwash/Gargle (Magic Mouthwash) 10 ml PRN QID PRN PO MOUTH PAIN 09/12/20 09:00 Alprazolam (Xanax) 0.5 mg TID PO 09/12/20 09:00 09/18/20 07:50 Buspirone HCl (Buspar) 7.5 mg TID PO 09/12/20 03:00 09/15/20 17:39 DC 09/15/20 13:07 Chlorpromazine HCl (Thorazine) 25 mg PRN BID PRN IV PSYCHOSIS 09/12/20 02:45 Melatonin (Melatonin) 9 mg QHS PO 09/12/20 21:00 09/17/20 20:40 Benztropine Mesylate (Cogentin) 2 mg BID PO 09/12/20 09:00 09/18/20 07:53 Insulin Human Lispro (HumaLOG) 0-9 UNITS TIDWMEALS SQ 09/12/20 08:00 09/16/20 17:50 Calcium Polycarbophil (Fibercon) 625 mg DAILY PO 09/12/20 09:00 09/18/20 07:50 Haloperidol Lactate (Haldol) 5 mg DAILY IM 09/13/20 11:00 09/16/20 18:26 DC 09/16/20 09:58 Lorazepam (Ativan Inj) 1 mg 1X ONCE IM 09/13/20 10:45 09/13/20 10:56 DC 09/13/20 11:08 Lorazepam (Ativan Inj) 1 mg DAILY IM 09/13/20 11:00 Divalproex Sodium (Depakote Er) 500 mg QHS PO 09/13/20 21:00 09/17/20 17:12 DC 09/16/20 20:50 Carbidopa/Levodopa (Sinemet 25/100) 1 tab DAILY08 PO 09/15/20 08:00 09/17/20 08:01 DC 09/17/20 08:18 Carbidopa/Levodopa (Sinemet 25/100) 2 tab 1400,2100 PO 09/15/20 14:00 09/17/20 21:01 DC 09/17/20 20:41 Carbidopa/Levodopa (Sinemet 25/100) 1 tab TID PO 09/21/20 09:00 Carbidopa/Levodopa (Sinemet 25/100) 1 tab 0900,1400 PO 09/18/20 09:00 09/20/20 14:01 09/18/20 07:50 Carbidopa/Levodopa (Sinemet 25/100) 2 tab QHS PO 09/18/20 21:00 09/20/20 21:01 Risperidone (RisperDAL) 2 mg QHS PO 09/14/20 21:00 09/16/20 18:26 DC 09/15/20 20:47 Risperidone (RisperDAL) 2.5 mg QHS PO 09/16/20 21:00 09/17/20 20:41 Divalproex Sodium (Depakote Er) 750 mg QHS PO 09/17/20 21:00 09/17/20 20:42 Trazodone HCl (Desyrel) 100 mg PRN QHS PRN PO INSOMNIA 09/17/20 20:45 09/18/20 02:18 Trazodone HCl (Desyrel) 100 mg QHS PO 09/17/20 21:00 09/17/20 21:00 Current Medications Medications (Trade) Dose Ordered Sig/Moe Route PRN Reason Start Time Stop Time Status Last Admin Dose Admin Carbidopa/Levodopa (Sinemet 25/100) 1 tab 0900,1400 PO 09/18/20 09:00 09/20/20 14:01 09/18/20 07:50 Divalproex Sodium (Depakote Er) 750 mg QHS PO 09/17/20 21:00 09/17/20 20:42 Trazodone HCl (Desyrel) 100 mg PRN QHS PRN PO INSOMNIA 09/17/20 20:45 09/18/20 02:18 Trazodone HCl (Desyrel) 100 mg QHS PO 09/17/20 21:00 09/17/20 21:00 I have reviewed the current psychotropics carefully including drug interactions. Risk benefit ratio favors no change other than as noted in my dictated progress note. Diagnosis: Problems: (1) Schizoaffective disorder, bipolar type (2) Impulse control disorder, unspecified (3) Anxiety disorder, unspecified (4) Bipolar disorder, current episode manic, severe with psychotic features BRIGIDA WOMACK MD Sep 18, 2020 09:12
[2020-09-18 16:02] VITALS: BP 132/81
--- NOTE | 2020-09-18 17:59 | NUR ---
Patient alert and oriented x4 no behaviors to report patient did not need his scheduled IM lorazepam he was very calm today med compliant and cooperative. Patient is very helpful on the unit cleaning up after others and helping other patients. Patient has good appetite eats all meals in the dining room with the other patients. Dr Hartman rounded on patient and D/C'd his IM lorazepam Dr Galaviz rounded on patient no new orders. Per patient he would like to make outbound phone calls VISHNU Burns is working with guardian to establish who patient can and cannot call. Vitals stable and wnl of baseline no complaint of pain or discomfort to report will continue to monitor patient.
[2020-09-18] MEDS: MELATONIN 3 MG TABLET PO SCH (20:15)
[2020-09-18] MEDS: DIVALPROEX ER 250 MG TAB.ER.24H. PO SCH (20:16)
[2020-09-18] MEDS: risperiDONE 1 MG TABLET. PO SCH (20:16)
[2020-09-18] MEDS: TAMSULOSIN 0.4 MG CAP.ER.24H. PO SCH (20:17)
[2020-09-18] MEDS: traZODone 100 MG TABLET. PO SCH (20:18)
[2020-09-18] MEDS: ATORVASTATIN CALCIUM 20 MG TABLET PO SCH (20:18)
--- NOTE | 2020-09-18 21:33 | NUR ---
Patient is compliant with medications taken whole. He asks appropriate questions and is interested in his medications and treatment plan. Patient stated that he is often hungry after meals, will speak to dietary about getting larger protein portions at meals. Dr Hartman increased patients risperdal so he does not "cycle back around". No adverse behaviors noted at this time.
--- NOTE | 2020-09-18 22:20 | PDOC ---
Exam Note: Joel Note: Please also refer to the separate dictated note~for this date of service dictated separately.~Patient seen individually. Discussed the patient with Nursing staff reviewed the chart.~Reviewed interim history and current functioning. Reviewed vital signs,~Labs/ Radiology~and current medications noted below. Continue current treatment with the changes noted in the dictated addendum note Assessment: Vital Signs/I&O: Vital Signs Date Time Temp Pulse Resp B/P (MAP) Pulse Ox O2 Delivery O2 Flow Rate FiO2 09/18/20 17:27 68 132/81 09/18/20 16:02 97.5 18 95 09/17/20 05:56 Room Air I & O 09/17/20 09/17/20 09/18/20 15:00 23:00 07:00 Intake Total 1140 ml 720 ml Balance 1140 ml 720 ml Labs: Laboratory Tests Test 09/18/20 07:47 09/18/20 11:08 09/18/20 16:28 09/18/20 19:18 Glucose (Fingerstick) 109 mg/dL (70-99) H 103 mg/dL (70-99) H 217 mg/dL (70-99) H 125 mg/dL (70-99) H Current Medications: Meds: Laboratory Tests Test 09/18/20 07:47 09/18/20 11:08 09/18/20 16:28 09/18/20 19:18 Glucose (Fingerstick) 109 mg/dL 103 mg/dL 217 mg/dL 125 mg/dL Current Medications Medications (Trade) Dose Ordered Sig/Moe Route PRN Reason Start Time Stop Time Status Last Admin Dose Admin Acetaminophen (Tylenol) 650 mg PRN Q6HRS PRN PO MILD PAIN / TEMP > 100.3'F 09/12/20 01:00 09/17/20 00:35 Multi-Ingredient Ointment (Analgesic [place]) 1 miquel PRN QID PRN TP MUSCLE PAIN 09/12/20 01:00 Al Hydroxide/Mg Hydroxide (Mylanta Plus Xs) 15 ml PRN AFTMEALHC PRN PO DYSPEPSIA 09/12/20 01:00 Magnesium Hydroxide (Milk Of Magnesia) 2,400 mg PRN QHS PRN PO CONSTIPATION 09/12/20 01:00 Nicotine (Nicoderm Cq 21mg Patch) 1 patch DAILY TD 09/12/20 09:00 6/8/21 07:51 Alprazolam (Xanax) 0.5 mg TID PO 09/12/20 02:00 09/12/20 02:50 DC 09/12/20 02:01 Olanzapine (ZyPREXA) 5 mg HS PO 09/12/20 02:00 09/14/20 17:48 DC 09/13/20 20:20 Trazodone HCl (Desyrel) 100 mg HS PO 09/12/20 02:00 09/17/20 20:50 DC 09/17/20 00:06 Benztropine Mesylate (Cogentin) 2 mg BID PO 09/12/20 02:00 09/12/20 02:51 DC 09/12/20 02:01 Melatonin (Melatonin) 9 mg HS PO 09/12/20 02:00 09/12/20 02:51 DC 09/12/20 02:01 Quetiapine Fumarate (SEROquel) 200 mg HS PO 09/12/20 02:00 09/15/20 17:39 DC 09/14/20 20:31 Amlodipine Besylate (Norvasc) 10 mg DAILY PO 09/12/20 09:00 09/18/20 07:52 Calcium Polycarbophil (Fibercon) 625 mg DAILY PO 09/12/20 09:00 09/12/20 09:12 DC Carbidopa/Levodopa (Sinemet 25/100) 2 tab TID PO 09/12/20 09:00 09/14/20 22:00 DC 09/14/20 20:29 Cetirizine HCl (ZyrTEC) 10 mg PRN DAILY PRN PO ALLERGIES 09/12/20 02:30 Ferrous Sulfate (Feosol) 325 mg TIDWMEALS PO 09/12/20 08:00 09/18/20 17:27 Montelukast Sodium (Singulair) 10 mg DAILY PO 09/12/20 09:00 09/18/20 07:52 Artificial Tears (Artificial Tears) 1 drop PRN QID PRN OU DRY EYE 09/12/20 02:30 Tamsulosin HCl (Flomax) 0.4 mg HS PO 09/12/20 21:00 09/18/20 20:17 Lisinopril (Prinivil) 30 mg DAILY PO 09/12/20 09:00 09/18/20 07:51 Non-Formulary Medication (Loratadine ) 10 mg DAILY PO 09/12/20 09:00 09/12/20 02:37 DC Polyethylene Glycol (miraLAX) 17 gm DAILY PO 09/12/20 09:00 09/18/20 07:53 Non-Formulary Medication ([Diphen/Maalox/ Lido] ) 5 ml QID PRN PO Abdominal Pain 09/12/20 02:30 UNV Atorvastatin Calcium (Lipitor) 40 mg QHS PO 09/12/20 21:00 09/18/20 20:18 Carvedilol (Coreg) 25 mg BIDWMEALS PO 09/12/20 08:00 09/18/20 17:27 Simethicone (Gas-X) 80 mg PRN BID PRN PO GAS / BLOATING 09/12/20 02:45 Multi-Ingredient Mouthwash/Gargle (Magic Mouthwash) 10 ml PRN QID PRN PO MOUTH PAIN 09/12/20 09:00 Alprazolam (Xanax) 0.5 mg TID PO 09/12/20 09:00 09/18/20 20:16 Buspirone HCl (Buspar) 7.5 mg TID PO 09/12/20 03:00 09/15/20 17:39 DC 09/15/20 13:07 Chlorpromazine HCl (Thorazine) 25 mg PRN BID PRN IV PSYCHOSIS 09/12/20 02:45 Melatonin (Melatonin) 9 mg QHS PO 09/12/20 21:00 09/18/20 20:15 Benztropine Mesylate (Cogentin) 2 mg BID PO 09/12/20 09:00 09/18/20 20:17 Insulin Human Lispro (HumaLOG) 0-9 UNITS TIDWMEALS SQ 09/12/20 08:00 09/18/20 17:38 Calcium Polycarbophil (Fibercon) 625 mg DAILY PO 09/12/20 09:00 09/18/20 07:50 Haloperidol Lactate (Haldol) 5 mg DAILY IM 09/13/20 11:00 09/16/20 18:26 DC 09/16/20 09:58 Lorazepam (Ativan Inj) 1 mg 1X ONCE IM 09/13/20 10:45 09/13/20 10:56 DC 09/13/20 11:08 Lorazepam (Ativan Inj) 1 mg DAILY IM 09/13/20 11:00 09/18/20 18:04 DC Divalproex Sodium (Depakote Er) 500 mg QHS PO 09/13/20 21:00 09/17/20 17:12 DC 09/16/20 20:50 Carbidopa/Levodopa (Sinemet 25/100) 1 tab DAILY08 PO 09/15/20 08:00 09/17/20 08:01 DC 09/17/20 08:18 Carbidopa/Levodopa (Sinemet 25/100) 2 tab 1400,2100 PO 09/15/20 14:00 09/17/20 21:01 DC 09/17/20 20:41 Carbidopa/Levodopa (Sinemet 25/100) 1 tab TID PO 09/21/20 09:00 Carbidopa/Levodopa (Sinemet 25/100) 1 tab 0900,1400 PO 09/18/20 09:00 09/20/20 14:01 09/18/20 12:59 Carbidopa/Levodopa (Sinemet 25/100) 2 tab QHS PO 09/18/20 21:00 09/20/20 21:01 09/18/20 20:17 Risperidone (RisperDAL) 2 mg QHS PO 09/14/20 21:00 09/16/20 18:26 DC 09/15/20 20:47 Risperidone (RisperDAL) 2.5 mg QHS PO 09/16/20 21:00 09/18/20 19:10 DC 09/17/20 20:41 Divalproex Sodium (Depakote Er) 750 mg QHS PO 09/17/20 21:00 09/18/20 20:16 Trazodone HCl (Desyrel) 100 mg PRN QHS PRN PO INSOMNIA 09/17/20 20:45 09/18/20 02:18 Trazodone HCl (Desyrel) 100 mg QHS PO 09/17/20 21:00 09/18/20 20:18 Risperidone (RisperDAL) 3.5 mg QHS PO 09/18/20 21:00 09/18/20 20:16 Current Medications Medications (Trade) Dose Ordered Sig/Moe Route PRN Reason Start Time Stop Time Status Last Admin Dose Admin Carbidopa/Levodopa (Sinemet 25/100) 1 tab 0900,1400 PO 09/18/20 09:00 09/20/20 14:01 09/18/20 12:59 Carbidopa/Levodopa (Sinemet 25/100) 2 tab QHS PO 09/18/20 21:00 09/20/20 21:01 09/18/20 20:17 Risperidone (RisperDAL) 3.5 mg QHS PO 09/18/20 21:00 09/18/20 20:16 I have reviewed the current psychotropics carefully including drug interactions. Risk benefit ratio favors no change other than as noted in my dictated progress note. Diagnosis: Problems: (1) Schizoaffective disorder, bipolar type (2) Impulse control disorder, unspecified (3) Anxiety disorder, unspecified (4) Bipolar disorder, current episode manic, severe with psychotic features BRIGIDA WOMACK MD Sep 18, 2020 22:20
--- NOTE | 2020-09-18 23:30 | NUR ---
PRN trazodone administered per order by patient request for insomnia.
[2020-09-19] MEDS: traZODone 100 MG TABLET. PO PRN ×2 (00:48→23:07)
--- NOTE | 2020-09-19 00:49 | NUR ---
2nd PRN Trazodone given for insomnia per order. Patient has been up walking around in his room. Encouraged him to lay down and try to sleep.
[2020-09-19 06:31] VITALS: BP 122/77
--- NOTE | 2020-09-19 06:46 | PDOC ---
Exam Note: Joel Note: This note is a late entry for 09/18/2020 covers elements not covered in my initial note. Subjective: The patient was seen individually in the evening of 09/18/2020 with Faraz ROONEY, discussed and reviewed the chart. The patient slept 6-1/2 hours previous night. The patients IM Ativan will be stopped as he is doing better. He is a little more paranoid this evening, slightly grandiose, hyperverbal. Initially I met with him at length in his room and then he wanted to see me again in the dayroom. In the dayroom he indicated my dopamine levels are still high. The ladies are here. Could you adjust the medications. He seemed somewhat insightful but outwardly he seems much more stable as compared to several days back. Jessica seems to have subsided. Review of Systems: Ambulation impaired in Broda chair. No CV, , pulmonary, eye, ENT system symptoms on review. Mental Status Exam: The patient is reasonably oriented. Speech coherent. Abstraction fair. Computation impaired, less pressured. Language function intact. Attention span short. No suicidal or homicidal ideation. Laboratory Data: Reviewed. Impression: Bipolar disorder mixed with psychotic features. Anxiety disorder unspecified. Impulse control disorder unspecified. Schizoaffective disorder, bipolar type, manic with psychotic features. Plan: No change from initial note. We have increased the Depakote. Repeat labs level. Adjust to reach therapeutic level. Nevertheless given some of his paranoia, delusions, feelings of hypersexuality, questionably as noted above, we will increase the Risperdal from 2.5 mg a day to 3.5 mg a day. Rest unchanged for now. Assessment: Vital Signs/I&O: Vital Signs Date Time Temp Pulse Resp B/P (MAP) Pulse Ox O2 Delivery O2 Flow Rate FiO2 09/19/20 06:31 97.5 66 18 122/77 (92) 99 Room Air I & O 09/18/20 09/18/20 09/19/20 15:00 23:00 07:00 Intake Total 1680 ml 1020 ml Balance 1680 ml 1020 ml Labs: Laboratory Tests Test 09/18/20 07:47 09/18/20 11:08 09/18/20 16:28 09/18/20 19:18 Glucose (Fingerstick) 109 mg/dL (70-99) H 103 mg/dL (70-99) H 217 mg/dL (70-99) H 125 mg/dL (70-99) H Current Medications: Meds: Laboratory Tests Test 09/18/20 07:47 09/18/20 11:08 09/18/20 16:28 09/18/20 19:18 Glucose (Fingerstick) 109 mg/dL 103 mg/dL 217 mg/dL 125 mg/dL Current Medications Medications (Trade) Dose Ordered Sig/Moe Route PRN Reason Start Time Stop Time Status Last Admin Dose Admin Acetaminophen (Tylenol) 650 mg PRN Q6HRS PRN PO MILD PAIN / TEMP > 100.3'F 09/12/20 01:00 09/17/20 00:35 Multi-Ingredient Ointment (Analgesic [place]) 1 miquel PRN QID PRN TP MUSCLE PAIN 09/12/20 01:00 Al Hydroxide/Mg Hydroxide (Mylanta Plus Xs) 15 ml PRN AFTMEALHC PRN PO DYSPEPSIA 09/12/20 01:00 Magnesium Hydroxide (Milk Of Magnesia) 2,400 mg PRN QHS PRN PO CONSTIPATION 09/12/20 01:00 Nicotine (Nicoderm Cq 21mg Patch) 1 patch DAILY TD 09/12/20 09:00 09/18/20 07:51 Alprazolam (Xanax) 0.5 mg TID PO 09/12/20 02:00 09/12/20 02:50 DC 09/12/20 02:01 Olanzapine (ZyPREXA) 5 mg HS PO 09/12/20 02:00 09/14/20 17:48 DC 09/13/20 20:20 Trazodone HCl (Desyrel) 100 mg HS PO 09/12/20 02:00 09/17/20 20:50 DC 09/17/20 00:06 Benztropine Mesylate (Cogentin) 2 mg BID PO 09/12/20 02:00 09/12/20 02:51 DC 09/12/20 02:01 Melatonin (Melatonin) 9 mg HS PO 09/12/20 02:00 09/12/20 02:51 DC 09/12/20 02:01 Quetiapine Fumarate (SEROquel) 200 mg HS PO 09/12/20 02:00 09/15/20 17:39 DC 09/14/20 20:31 Amlodipine Besylate (Norvasc) 10 mg DAILY PO 09/12/20 09:00 09/18/20 07:52 Calcium Polycarbophil (Fibercon) 625 mg DAILY PO 09/12/20 09:00 09/12/20 09:12 DC Carbidopa/Levodopa (Sinemet 25/100) 2 tab TID PO 09/12/20 09:00 09/14/20 22:00 DC 09/14/20 20:29 Cetirizine HCl (ZyrTEC) 10 mg PRN DAILY PRN PO ALLERGIES 09/12/20 02:30 Ferrous Sulfate (Feosol) 325 mg TIDWMEALS PO 09/12/20 08:00 09/18/20 17:27 Montelukast Sodium (Singulair) 10 mg DAILY PO 09/12/20 09:00 09/18/20 07:52 Artificial Tears (Artificial Tears) 1 drop PRN QID PRN OU DRY EYE 09/12/20 02:30 Tamsulosin HCl (Flomax) 0.4 mg HS PO 09/12/20 21:00 09/18/20 20:17 Lisinopril (Prinivil) 30 mg DAILY PO 09/12/20 09:00 09/18/20 07:51 Non-Formulary Medication (Loratadine ) 10 mg DAILY PO 09/12/20 09:00 09/12/20 02:37 DC Polyethylene Glycol (miraLAX) 17 gm DAILY PO 09/12/20 09:00 09/18/20 07:53 Non-Formulary Medication ([Diphen/Maalox/ Lido] ) 5 ml QID PRN PO Abdominal Pain 09/12/20 02:30 UNV Atorvastatin Calcium (Lipitor) 40 mg QHS PO 09/12/20 21:00 09/18/20 20:18 Carvedilol (Coreg) 25 mg BIDWMEALS PO 09/12/20 08:00 09/18/20 17:27 Simethicone (Gas-X) 80 mg PRN BID PRN PO GAS / BLOATING 09/12/20 02:45 Multi-Ingredient Mouthwash/Gargle (Magic Mouthwash) 10 ml PRN QID PRN PO MOUTH PAIN 09/12/20 09:00 Alprazolam (Xanax) 0.5 mg TID PO 09/12/20 09:00 09/18/20 20:16 Buspirone HCl (Buspar) 7.5 mg TID PO 09/12/20 03:00 09/15/20 17:39 DC 09/15/20 13:07 Chlorpromazine HCl (Thorazine) 25 mg PRN BID PRN IV PSYCHOSIS 09/12/20 02:45 Melatonin (Melatonin) 9 mg QHS PO 09/12/20 21:00 09/18/20 20:15 Benztropine Mesylate (Cogentin) 2 mg BID PO 09/12/20 09:00 09/18/20 20:17 Insulin Human Lispro (HumaLOG) 0-9 UNITS TIDWMEALS SQ 09/12/20 08:00 09/18/20 17:38 Calcium Polycarbophil (Fibercon) 625 mg DAILY PO 09/12/20 09:00 09/18/20 07:50 Haloperidol Lactate (Haldol) 5 mg DAILY IM 09/13/20 11:00 09/16/20 18:26 DC 09/16/20 09:58 Lorazepam (Ativan Inj) 1 mg 1X ONCE IM 09/13/20 10:45 09/13/20 10:56 DC 09/13/20 11:08 Lorazepam (Ativan Inj) 1 mg DAILY IM 09/13/20 11:00 09/18/20 18:04 DC Divalproex Sodium (Depakote Er) 500 mg QHS PO 09/13/20 21:00 09/17/20 17:12 DC 09/16/20 20:50 Carbidopa/Levodopa (Sinemet 25/100) 1 tab DAILY08 PO 09/15/20 08:00 09/17/20 08:01 DC 09/17/20 08:18 Carbidopa/Levodopa (Sinemet 25/100) 2 tab 1400,2100 PO 09/15/20 14:00 09/17/20 21:01 DC 09/17/20 20:41 Carbidopa/Levodopa (Sinemet 25/100) 1 tab TID PO 09/21/20 09:00 Carbidopa/Levodopa (Sinemet 25/100) 1 tab 0900,1400 PO 09/18/20 09:00 09/20/20 14:01 09/18/20 12:59 Carbidopa/Levodopa (Sinemet 25/100) 2 tab QHS PO 09/18/20 21:00 09/20/20 21:01 09/18/20 20:17 Risperidone (RisperDAL) 2 mg QHS PO 09/14/20 21:00 09/16/20 18:26 DC 09/15/20 20:47 Risperidone (RisperDAL) 2.5 mg QHS PO 09/16/20 21:00 09/18/20 19:10 DC 09/17/20 20:41 Divalproex Sodium (Depakote Er) 750 mg QHS PO 09/17/20 21:00 09/18/20 20:16 Trazodone HCl (Desyrel) 100 mg PRN QHS PRN PO INSOMNIA 09/17/20 20:45 09/19/20 00:48 Trazodone HCl (Desyrel) 100 mg QHS PO 09/17/20 21:00 09/18/20 20:18 Risperidone (RisperDAL) 3.5 mg QHS PO 09/18/20 21:00 09/18/20 20:16 Current Medications Medications (Trade) Dose Ordered Sig/Moe Route PRN Reason Start Time Stop Time Status Last Admin Dose Admin Carbidopa/Levodopa (Sinemet 25/100) 1 tab 0900,1400 PO 09/18/20 09:00 09/20/20 14:01 09/18/20 12:59 Carbidopa/Levodopa (Sinemet 25/100) 2 tab QHS PO 09/18/20 21:00 09/20/20 21:01 09/18/20 20:17 Risperidone (RisperDAL) 3.5 mg QHS PO 09/18/20 21:00 09/18/20 20:16 I have reviewed the current psychotropics carefully including drug interactions. Risk benefit ratio favors no change other than as noted in my dictated progress note. Diagnosis: Problems: (1) Schizoaffective disorder, bipolar type (2) Impulse control disorder, unspecified (3) Anxiety disorder, unspecified (4) Bipolar disorder, current episode manic, severe with psychotic features BRIGIDA WOMACK MD Sep 19, 2020 06:46
[2020-09-19] MEDS: INSULIN LISPRO 300 UNITS/3 ML VIAL. SQ SCH ×3 (08:00→17:43)
[2020-09-19] MEDS: CARBIDOPA/LEVODOPA 25/100MG TABLET PO SCH ×3 (08:01→20:56)
[2020-09-19] MEDS: POLYETHYLENE GLYCOL 3350 17 GM PACKET. PO SCH (08:01)
[2020-09-19] MEDS: BENZTROPINE MESYLATE 1 MG TABLET PO SCH ×2 (08:02→20:56)
[2020-09-19] MEDS: NICOTINE 21MG PATCH. TD SCH (08:02)
[2020-09-19] MEDS: FERROUS SULFATE 325 MG TABLET. PO SCH ×3 (08:02→17:43)
[2020-09-19] MEDS: ALPRAZolam 0.5 MG TABLET PO SCH ×3 (08:02→20:56)
[2020-09-19] MEDS: MONTELUKAST 10 MG TABLET. PO SCH (08:02)
[2020-09-19] MEDS: CALCIUM POLYCARBOPHIL 625 MG TABLET PO SCH (08:02)
[2020-09-19] MEDS: CARVEDILOL 12.5 MG TABLET PO SCH ×2 (08:03→17:44)
[2020-09-19] MEDS: amLODIPine BESYLATE 10 MG TABLET PO SCH (08:03)
[2020-09-19] MEDS: LISINOPRIL 10 MG TABLET PO SCH (08:04)
[2020-09-19 15:57] VITALS: BP 133/93
--- NOTE | 2020-09-19 17:55 | NUR ---
Patient alert and oriented x3 no behaviors to report med compliant and cooperative. Patient understanding when advised we have not heard back from the guardian to approve outgoing phone calls at this time. Patient has a good appetite he asked the dietitian for double portions which he was given. Patient very social and helpful with other patients and staff vitals wnl of baseline and stable no complaints of pain or discomfort to report. Dr Wang and Dr Hartman rounded on patient no new orders. Will continue to monitor patient.
[2020-09-19 18:41] VITALS: BP 119/70
[2020-09-19] MEDS: MELATONIN 3 MG TABLET PO SCH (20:56)
[2020-09-19] MEDS: DIVALPROEX ER 250 MG TAB.ER.24H. PO SCH (20:56)
[2020-09-19] MEDS: ATORVASTATIN CALCIUM 20 MG TABLET PO SCH (20:56)
[2020-09-19] MEDS: traZODone 100 MG TABLET. PO SCH (20:56)
[2020-09-19] MEDS: TAMSULOSIN 0.4 MG CAP.ER.24H. PO SCH (20:56)
[2020-09-19] MEDS: risperiDONE 1 MG TABLET. PO SCH (20:57)
--- NOTE | 2020-09-19 22:08 | PDOC ---
Exam Note: Joel Note: Please also refer to the separate dictated note~for this date of service dictated separately.~Patient seen individually. Discussed the patient with Nursing staff reviewed the chart.~Reviewed interim history and current functioning. Reviewed vital signs,~Labs/ Radiology~and current medications noted below. Continue current treatment with the changes noted in the dictated addendum note Assessment: Vital Signs/I&O: Vital Signs Date Time Temp Pulse Resp B/P (MAP) Pulse Ox O2 Delivery O2 Flow Rate FiO2 09/19/20 18:41 74 119/70 (86) 09/19/20 15:57 98.0 18 99 09/19/20 06:31 Room Air I & O 09/18/20 09/18/20 09/19/20 15:00 23:00 07:00 Intake Total 1680 ml 1020 ml Balance 1680 ml 1020 ml Labs: Laboratory Tests Test 09/19/20 07:23 09/19/20 11:31 09/19/20 16:16 09/19/20 19:12 Glucose (Fingerstick) 125 mg/dL (70-99) H 94 mg/dL (70-99) 171 mg/dL (70-99) H 89 mg/dL (70-99) Current Medications: Meds: Laboratory Tests Test 09/19/20 07:23 09/19/20 11:31 09/19/20 16:16 09/19/20 19:12 Glucose (Fingerstick) 125 mg/dL 94 mg/dL 171 mg/dL 89 mg/dL Current Medications Medications (Trade) Dose Ordered Sig/Moe Route PRN Reason Start Time Stop Time Status Last Admin Dose Admin Acetaminophen (Tylenol) 650 mg PRN Q6HRS PRN PO MILD PAIN / TEMP > 100.3'F 09/12/20 01:00 09/17/20 00:35 Multi-Ingredient Ointment (Analgesic [place]) 1 miquel PRN QID PRN TP MUSCLE PAIN 09/12/20 01:00 Al Hydroxide/Mg Hydroxide (Mylanta Plus Xs) 15 ml PRN AFTMEALHC PRN PO DYSPEPSIA 09/12/20 01:00 Magnesium Hydroxide (Milk Of Magnesia) 2,400 mg PRN QHS PRN PO CONSTIPATION 09/12/20 01:00 Nicotine (Nicoderm Cq 21mg Patch) 1 patch DAILY TD 09/12/20 09:00 09/19/20 08:02 Alprazolam (Xanax) 0.5 mg TID PO 09/12/20 02:00 09/12/20 02:50 DC 09/12/20 02:01 Olanzapine (ZyPREXA) 5 mg HS PO 09/12/20 02:00 09/14/20 17:48 DC 09/13/20 20:20 Trazodone HCl (Desyrel) 100 mg HS PO 09/12/20 02:00 09/17/20 20:50 DC 09/17/20 00:06 Benztropine Mesylate (Cogentin) 2 mg BID PO 09/12/20 02:00 09/12/20 02:51 DC 09/12/20 02:01 Melatonin (Melatonin) 9 mg HS PO 09/12/20 02:00 09/12/20 02:51 DC 09/12/20 02:01 Quetiapine Fumarate (SEROquel) 200 mg HS PO 09/12/20 02:00 09/15/20 17:39 DC 09/14/20 20:31 Amlodipine Besylate (Norvasc) 10 mg DAILY PO 09/12/20 09:00 09/19/20 08:03 Calcium Polycarbophil (Fibercon) 625 mg DAILY PO 09/12/20 09:00 09/12/20 09:12 DC Carbidopa/Levodopa (Sinemet 25/100) 2 tab TID PO 09/12/20 09:00 09/14/20 22:00 DC 09/14/20 20:29 Cetirizine HCl (ZyrTEC) 10 mg PRN DAILY PRN PO ALLERGIES 09/12/20 02:30 Ferrous Sulfate (Feosol) 325 mg TIDWMEALS PO 09/12/20 08:00 09/19/20 17:43 Montelukast Sodium (Singulair) 10 mg DAILY PO 09/12/20 09:00 09/19/20 08:02 Artificial Tears (Artificial Tears) 1 drop PRN QID PRN OU DRY EYE 09/12/20 02:30 Tamsulosin HCl (Flomax) 0.4 mg HS PO 09/12/20 21:00 09/19/20 20:56 Lisinopril (Prinivil) 30 mg DAILY PO 09/12/20 09:00 09/19/20 08:04 Non-Formulary Medication (Loratadine ) 10 mg DAILY PO 09/12/20 09:00 09/12/20 02:37 DC Polyethylene Glycol (miraLAX) 17 gm DAILY PO 09/12/20 09:00 09/19/20 08:01 Non-Formulary Medication ([Diphen/Maalox/ Lido] ) 5 ml QID PRN PO Abdominal Pain 09/12/20 02:30 UNV Atorvastatin Calcium (Lipitor) 40 mg QHS PO 09/12/20 21:00 09/19/20 20:56 Carvedilol (Coreg) 25 mg BIDWMEALS PO 09/12/20 08:00 09/19/20 17:44 Simethicone (Gas-X) 80 mg PRN BID PRN PO GAS / BLOATING 09/12/20 02:45 Multi-Ingredient Mouthwash/Gargle (Magic Mouthwash) 10 ml PRN QID PRN PO MOUTH PAIN 09/12/20 09:00 Alprazolam (Xanax) 0.5 mg TID PO 09/12/20 09:00 09/19/20 20:56 Buspirone HCl (Buspar) 7.5 mg TID PO 09/12/20 03:00 09/15/20 17:39 DC 09/15/20 13:07 Chlorpromazine HCl (Thorazine) 25 mg PRN BID PRN IV PSYCHOSIS 09/12/20 02:45 Melatonin (Melatonin) 9 mg QHS PO 09/12/20 21:00 09/19/20 20:56 Benztropine Mesylate (Cogentin) 2 mg BID PO 09/12/20 09:00 09/19/20 20:56 Insulin Human Lispro (HumaLOG) 0-9 UNITS TIDWMEALS SQ 09/12/20 08:00 09/19/20 17:43 Calcium Polycarbophil (Fibercon) 625 mg DAILY PO 09/12/20 09:00 09/19/20 08:02 Haloperidol Lactate (Haldol) 5 mg DAILY IM 09/13/20 11:00 09/16/20 18:26 DC 09/16/20 09:58 Lorazepam (Ativan Inj) 1 mg 1X ONCE IM 09/13/20 10:45 09/13/20 10:56 DC 09/13/20 11:08 Lorazepam (Ativan Inj) 1 mg DAILY IM 09/13/20 11:00 09/18/20 18:04 DC Divalproex Sodium (Depakote Er) 500 mg QHS PO 09/13/20 21:00 09/17/20 17:12 DC 09/16/20 20:50 Carbidopa/Levodopa (Sinemet 25/100) 1 tab DAILY08 PO 09/15/20 08:00 09/17/20 08:01 DC 09/17/20 08:18 Carbidopa/Levodopa (Sinemet 25/100) 2 tab 1400,2100 PO 09/15/20 14:00 09/17/20 21:01 DC 09/17/20 20:41 Carbidopa/Levodopa (Sinemet 25/100) 1 tab TID PO 09/21/20 09:00 Carbidopa/Levodopa (Sinemet 25/100) 1 tab 0900,1400 PO 09/18/20 09:00 09/20/20 14:01 09/19/20 13:19 Carbidopa/Levodopa (Sinemet 25/100) 2 tab QHS PO 09/18/20 21:00 09/20/20 21:01 09/19/20 20:56 Risperidone (RisperDAL) 2 mg QHS PO 09/14/20 21:00 09/16/20 18:26 DC 09/15/20 20:47 Risperidone (RisperDAL) 2.5 mg QHS PO 09/16/20 21:00 09/18/20 19:10 DC 09/17/20 20:41 Divalproex Sodium (Depakote Er) 750 mg QHS PO 09/17/20 21:00 09/19/20 20:56 Trazodone HCl (Desyrel) 100 mg PRN QHS PRN PO INSOMNIA 09/17/20 20:45 09/19/20 00:48 Trazodone HCl (Desyrel) 100 mg QHS PO 09/17/20 21:00 09/19/20 20:56 Risperidone (RisperDAL) 3.5 mg QHS PO 09/18/20 21:00 09/19/20 20:57 I have reviewed the current psychotropics carefully including drug interactions. Risk benefit ratio favors no change other than as noted in my dictated progress note. Diagnosis: Problems: (1) Schizoaffective disorder, bipolar type (2) Impulse control disorder, unspecified (3) Anxiety disorder, unspecified (4) Bipolar disorder, current episode manic, severe with psychotic features BRIGIDA WOMACK MD Sep 19, 2020 22:08
--- NOTE | 2020-09-19 22:32 | NUR ---
Patient was watching TV in the day room with peers and has been interactive with staff and peers. He stated that SW is waiting for a call back from his court appointed guardian about whether he can make some phone calls to his family. He stated that this is not new that he frequently cannot get a hold of this guardian. Patient is calm, appropriate and pleasant, he is alert and oriented x4. He asks pertinent questions about his medications and expresses interest in treatment plans. No adverse behaviors noted.
--- NOTE | 2020-09-19 23:18 | NUR ---
Patient fell asleep but is unable to stay asleep, requested PRN Trazodone. He stated he had a dream about riding his Tr[employer] Verma and "laying it down". Nurse suggested he remove the Nicotine patch at bed time as a side effect of the patch can be vivid dreams and insomnia. Nurse assisted patient to remove patch and provided PRN Trazodone per order for insomnia. Will continue to monitor.
[2020-09-20] MEDS: NICOTINE 21MG PATCH. TD SCH (05:04)
[2020-09-20 05:59] VITALS: BP 138/81
[2020-09-20 06:03] LABS: BASO % 1 % (0-3); EOS # 0.1 x10^3/uL (0.0-0.7); EOS % 1 % (0-3); LYMPH # 1.8 x10^3/uL (1.0-4.8); LYMPH % 34 % (24-48); MEAN CORPUSCULAR HEMOGLOBIN 31 pg (25-35); MEAN CORPUSCULAR HGB CONC 33 g/dL (31-37); MEAN CORPUSCULAR VOLUME 92 fL (79-100); MONO # 0.7 x10^3/uL (0.0-1.1); MONO % 14 % (0-9); NEUT # 2.7 x10^3uL (1.8-7.7); NEUT % 50 % (31-73); PLATELET COUNT 154 x10^3/uL (140-400); RED BLOOD COUNT 4.26 x10^6/uL (4.30-5.70); RED CELL DISTRIBUTION WIDTH 15.3 % (11.5-14.5); WHITE BLOOD COUNT 5.3 x10^3/uL (4.0-11.0)
[2020-09-20 06:18] LABS: ALBUMIN 3.5 g/dL (3.4-5.0); ALBUMIN/GLOBULIN RATIO 1.3 (1.0-1.7); BLOOD UREA NITROGEN 15 mg/dL (8-26); CALCIUM 8.5 mg/dL (8.5-10.1); CREATININE 0.8 mg/dL (0.7-1.3); GLUCOSE 118 mg/dL (70-99); TOTAL PROTEIN 6.1 g/dL (6.4-8.2)
[2020-09-20 06:19] LABS: ALK PHOS 84 U/L (46-116); ALT (SGPT) 28 U/L (16-63); ANION GAP 7 (6-14); AST (SGOT) 20 U/L (15-37); BUN/CREATININE RATIO 19 (6-20); CARBON DIOXIDE 29 mmol/L (21-32); CHLORIDE 104 mmol/L (98-107); SODIUM 140 mmol/L (136-145); TOTAL BILIRUBIN 0.3 mg/dL (0.2-1.0); VAL ACID 51 mcg/mL (50-100)
--- NOTE | 2020-09-20 06:26 | NUR ---
patients states he is constipated. PRN milk of mag given for constipation per order.
--- NOTE | 2020-09-20 07:15 | PDOC ---
Exam Note: Joel Note: This note is a late entry for 09/19/2020 covers elements not covered in my initial note. Subjective: The patient was seen individually in the evening of 09/19/2020 with Faraz ROONEY, discussed and reviewed the chart. The patient slept 4-1/4 hours previous night. The patient has been obsessed about wanting to call the guardian on the phone but has been unable to contact him he doesnt picker box operator the phone. We have processed that he is here for adjustment of his psychotropics. He is extremely manic at admission and doing much better. He should focus on himself rather than extraneous thoughts about getting back to his facility. He has responded to the extra 1 mg Risperdal we initiated yesterday and we will stop the Ativan IM scheduled daily. Review of Systems: Ambulation impaired in Broda chair. No CV, , pulmonary, eye, ENT system symptoms on review. Mental Status Exam: The patient is reasonably oriented. Speech coherent. Abst raction fair. Computation impaired, less pressured. Language function intact. Attention span short. No suicidal or homicidal ideation. Laboratory Data: Reviewed. Impression: Bipolar disorder mixed with psychotic features. Anxiety disorder unspecified. Impulse control disorder unspecified. Schizoaffective disorder, bipolar type, manic with psychotic features. Plan: No change from initial note. Assessment: Vital Signs/I&O: Vital Signs Date Time Temp Pulse Resp B/P (MAP) Pulse Ox O2 Delivery O2 Flow Rate FiO2 09/20/20 05:59 96.5 64 20 138/81 (100) 100 Room Air I & O 09/19/20 09/19/20 09/20/20 15:00 23:00 07:00 Intake Total 720 ml 480 ml Balance 720 ml 480 ml Labs: Laboratory Tests Test 09/19/20 07:23 09/19/20 11:31 09/19/20 16:16 09/19/20 19:12 Glucose (Fingerstick) 125 mg/dL (70-99) H 94 mg/dL (70-99) 171 mg/dL (70-99) H 89 mg/dL (70-99) Test 09/20/20 05:50 White Blood Count 5.3 x10^3/uL (4.0-11.0) Red Blood Count 4.26 x10^6/uL (4.30-5.70) L Hemoglobin 13.0 g/dL (13.0-17.5) Hematocrit 39.0 % (39.0-53.0) Mean Corpuscular Volume 92 fL (79-100) Mean Corpuscular Hemoglobin 31 pg (25-35) Mean Corpuscular Hemoglobin Concent 33 g/dL (31-37) Red Cell Distribution Width 15.3 % (11.5-14.5) H Platelet Count 154 x10^3/uL (140-400) Neutrophils (%) (Auto) 50 % (31-73) Lymphocytes (%) (Auto) 34 % (24-48) Monocytes (%) (Auto) 14 % (0-9) H Eosinophils (%) (Auto) 1 % (0-3) Basophils (%) (Auto) 1 % (0-3) Neutrophils # (Auto) 2.7 x10^3uL (1.8-7.7) Lymphocytes # (Auto) 1.8 x10^3/uL (1.0-4.8) Monocytes # (Auto) 0.7 x10^3/uL (0.0-1.1) Eosinophils # (Auto) 0.1 x10^3/uL (0.0-0.7) Basophils # (Auto) 0.0 x10^3/uL (0.0-0.2) Sodium Level 140 mmol/L (136-145) Potassium Level 4.0 mmol/L (3.5-5.1) Chloride Level 104 mmol/L (98-107) Carbon Dioxide Level 29 mmol/L (21-32) Anion Gap 7 (6-14) Blood Urea Nitrogen 15 mg/dL (8-26) Creatinine 0.8 mg/dL (0.7-1.3) Estimated GFR (Cockcroft-Gault) 97.0 BUN/Creatinine Ratio 19 (6-20) Glucose Level 118 mg/dL (70-99) H Calcium Level 8.5 mg/dL (8.5-10.1) Total Bilirubin 0.3 mg/dL (0.2-1.0) Aspartate Amino Transferase (AST) 20 U/L (15-37) Alanine Aminotransferase (ALT) 28 U/L (16-63) Alkaline Phosphatase 84 U/L (46-116) Total Protein 6.1 g/dL (6.4-8.2) L Albumin 3.5 g/dL (3.4-5.0) Albumin/Globulin Ratio 1.3 (1.0-1.7) Valproic Acid Level 51 mcg/mL (50-100) Valproic Acid Last Dose Date 09/19/20 Valproic Acid Last Dose Time 2100 Current Medications: Meds: Laboratory Tests Test 09/19/20 07:23 09/19/20 11:31 09/19/20 16:16 09/19/20 19:12 Glucose (Fingerstick) 125 mg/dL 94 mg/dL 171 mg/dL 89 mg/dL Test 09/20/20 05:50 White Blood Count 5.3 x10^3/uL Red Blood Count 4.26 x10^6/uL Hemoglobin 13.0 g/dL Hematocrit 39.0 % Mean Corpuscular Volume 92 fL Mean Corpuscular Hemoglobin 31 pg Mean Corpuscular Hemoglobin Concent 33 g/dL Red Cell Distribution Width 15.3 % Platelet Count 154 x10^3/uL Neutrophils (%) (Auto) 50 % Lymphocytes (%) (Auto) 34 % Monocytes (%) (Auto) 14 % Eosinophils (%) (Auto) 1 % Basophils (%) (Auto) 1 % Neutrophils # (Auto) 2.7 x10^3uL Lymphocytes # (Auto) 1.8 x10^3/uL Monocytes # (Auto) 0.7 x10^3/uL Eosinophils # (Auto) 0.1 x10^3/uL Basophils # (Auto) 0.0 x10^3/uL Sodium Level 140 mmol/L Potassium Level 4.0 mmol/L Chloride Level 104 mmol/L Carbon Dioxide Level 29 mmol/L Anion Gap 7 Blood Urea Nitrogen 15 mg/dL Creatinine 0.8 mg/dL Estimated GFR (Cockcroft-Gault) 97.0 BUN/Creatinine Ratio 19 Glucose Level 118 mg/dL Calcium Level 8.5 mg/dL Total Bilirubin 0.3 mg/dL Aspartate Amino Transf (AST/SGOT) 20 U/L Alanine Aminotransferase (ALT/SGPT) 28 U/L Alkaline Phosphatase 84 U/L Total Protein 6.1 g/dL Albumin 3.5 g/dL Albumin/Globulin Ratio 1.3 Valproic Acid (Depakene) Level 51 mcg/mL Valproic Acid Last Dose Date 09/19/20 Valproic Acid Last Dose Time 2100 Current Medications Medications (Trade) Dose Ordered Sig/Moe Route PRN Reason Start Time Stop Time Status Last Admin Dose Admin Acetaminophen (Tylenol) 650 mg PRN Q6HRS PRN PO MILD PAIN / TEMP > 100.3'F 09/12/20 01:00 09/17/20 00:35 Multi-Ingredient Ointment (Analgesic [place]) 1 miquel PRN QID PRN TP MUSCLE PAIN 09/12/20 01:00 Al Hydroxide/Mg Hydroxide (Mylanta Plus Xs) 15 ml PRN AFTMEALHC PRN PO DYSPEPSIA 09/12/20 01:00 Magnesium Hydroxide (Milk Of Magnesia) 2,400 mg PRN QHS PRN PO CONSTIPATION 09/12/20 01:00 09/20/20 06:25 Nicotine (Nicoderm Cq 21mg Patch) 1 patch DAILY TD 09/12/20 09:00 09/20/20 05:04 Alprazolam (Xanax) 0.5 mg TID PO 09/12/20 02:00 09/12/20 02:50 DC 09/12/20 02:01 Olanzapine (ZyPREXA) 5 mg HS PO 09/12/20 02:00 09/14/20 17:48 DC 09/13/20 20:20 Trazodone HCl (Desyrel) 100 mg HS PO 09/12/20 02:00 09/17/20 20:50 DC 09/17/20 00:06 Benztropine Mesylate (Cogentin) 2 mg BID PO 09/12/20 02:00 09/12/20 02:51 DC 09/12/20 02:01 Melatonin (Melatonin) 9 mg HS PO 09/12/20 02:00 09/12/20 02:51 DC 09/12/20 02:01 Quetiapine Fumarate (SEROquel) 200 mg HS PO 09/12/20 02:00 09/15/20 17:39 DC 09/14/20 20:31 Amlodipine Besylate (Norvasc) 10 mg DAILY PO 09/12/20 09:00 09/19/20 08:03 Calcium Polycarbophil (Fibercon) 625 mg DAILY PO 09/12/20 09:00 09/12/20 09:12 DC Carbidopa/Levodopa (Sinemet 25/100) 2 tab TID PO 09/12/20 09:00 09/14/20 22:00 DC 09/14/20 20:29 Cetirizine HCl (ZyrTEC) 10 mg PRN DAILY PRN PO ALLERGIES 09/12/20 02:30 Ferrous Sulfate (Feosol) 325 mg TIDWMEALS PO 09/12/20 08:00 09/19/20 17:43 Montelukast Sodium (Singulair) 10 mg DAILY PO 09/12/20 09:00 09/19/20 08:02 Artificial Tears (Artificial Tears) 1 drop PRN QID PRN OU DRY EYE 09/12/20 02:30 Tamsulosin HCl (Flomax) 0.4 mg HS PO 09/12/20 21:00 09/19/20 20:56 Lisinopril (Prinivil) 30 mg DAILY PO 09/12/20 09:00 09/19/20 08:04 Non-Formulary Medication (Loratadine ) 10 mg DAILY PO 09/12/20 09:00 09/12/20 02:37 DC Polyethylene Glycol (miraLAX) 17 gm DAILY PO 09/12/20 09:00 09/19/20 08:01 Non-Formulary Medication ([Diphen/Maalox/ Lido] ) 5 ml QID PRN PO Abdominal Pain 09/12/20 02:30 UNV Atorvastatin Calcium (Lipitor) 40 mg QHS PO 09/12/20 21:00 09/19/20 20:56 Carvedilol (Coreg) 25 mg BIDWMEALS PO 09/12/20 08:00 09/19/20 17:44 Simethicone (Gas-X) 80 mg PRN BID PRN PO GAS / BLOATING 09/12/20 02:45 Multi-Ingredient Mouthwash/Gargle (Magic Mouthwash) 10 ml PRN QID PRN PO MOUTH PAIN 09/12/20 09:00 Alprazolam (Xanax) 0.5 mg TID PO 09/12/20 09:00 09/19/20 20:56 Buspirone HCl (Buspar) 7.5 mg TID PO 09/12/20 03:00 09/15/20 17:39 DC 09/15/20 13:07 Chlorpromazine HCl (Thorazine) 25 mg PRN BID PRN IV PSYCHOSIS 09/12/20 02:45 Melatonin (Melatonin) 9 mg QHS PO 09/12/20 21:00 09/19/20 20:56 Benztropine Mesylate (Cogentin) 2 mg BID PO 09/12/20 09:00 09/19/20 20:56 Insulin Human Lispro (HumaLOG) 0-9 UNITS TIDWMEALS SQ 09/12/20 08:00 09/19/20 17:43 Calcium Polycarbophil (Fibercon) 625 mg DAILY PO 09/12/20 09:00 09/19/20 08:02 Haloperidol Lactate (Haldol) 5 mg DAILY IM 09/13/20 11:00 09/16/20 18:26 DC 09/16/20 09:58 Lorazepam (Ativan Inj) 1 mg 1X ONCE IM 09/13/20 10:45 09/13/20 10:56 DC 09/13/20 11:08 Lorazepam (Ativan Inj) 1 mg DAILY IM 09/13/20 11:00 09/18/20 18:04 DC Divalproex Sodium (Depakote Er) 500 mg QHS PO 09/13/20 21:00 09/17/20 17:12 DC 09/16/20 20:50 Carbidopa/Levodopa (Sinemet 25/100) 1 tab DAILY08 PO 09/15/20 08:00 09/17/20 08:01 DC 09/17/20 08:18 Carbidopa/Levodopa (Sinemet 25/100) 2 tab 1400,2100 PO 09/15/20 14:00 09/17/20 21:01 DC 09/17/20 20:41 Carbidopa/Levodopa (Sinemet 25/100) 1 tab TID PO 09/21/20 09:00 Carbidopa/Levodopa (Sinemet 25/100) 1 tab 0900,1400 PO 09/18/20 09:00 09/20/20 14:01 09/19/20 13:19 Carbidopa/Levodopa (Sinemet 25/100) 2 tab QHS PO 09/18/20 21:00 09/20/20 21:01 09/19/20 20:56 Risperidone (RisperDAL) 2 mg QHS PO 09/14/20 21:00 6/6/21 18:26 DC 09/15/20 20:47 Risperidone (RisperDAL) 2.5 mg QHS PO 09/16/20 21:00 09/18/20 19:10 DC 09/17/20 20:41 Divalproex Sodium (Depakote Er) 750 mg QHS PO 09/17/20 21:00 09/19/20 20:56 Trazodone HCl (Desyrel) 100 mg PRN QHS PRN PO INSOMNIA 09/17/20 20:45 09/19/20 23:07 Trazodone HCl (Desyrel) 100 mg QHS PO 09/17/20 21:00 09/19/20 20:56 Risperidone (RisperDAL) 3.5 mg QHS PO 09/18/20 21:00 09/19/20 20:57 I have reviewed the current psychotropics carefully including drug interactions. Risk benefit ratio favors no change other than as noted in my dictated progress note. Diagnosis: Problems: (1) Schizoaffective disorder, bipolar type (2) Impulse control disorder, unspecified (3) Anxiety disorder, unspecified (4) Bipolar disorder, current episode manic, severe with psychotic features BRIGIDA WOMACK MD Sep 20, 2020 07:15
[2020-09-20] MEDS: INSULIN LISPRO 300 UNITS/3 ML VIAL. SQ SCH ×3 (08:00→17:00)
[2020-09-20] MEDS: POLYETHYLENE GLYCOL 3350 17 GM PACKET. PO SCH (09:33)
[2020-09-20] MEDS: FERROUS SULFATE 325 MG TABLET. PO SCH ×3 (09:34→17:30)
[2020-09-20] MEDS: ALPRAZolam 0.5 MG TABLET PO SCH ×3 (09:34→21:01)
[2020-09-20] MEDS: BENZTROPINE MESYLATE 1 MG TABLET PO SCH ×2 (09:34→21:00)
[2020-09-20] MEDS: LISINOPRIL 10 MG TABLET PO SCH (09:35)
[2020-09-20] MEDS: CALCIUM POLYCARBOPHIL 625 MG TABLET PO SCH (09:35)
[2020-09-20] MEDS: MONTELUKAST 10 MG TABLET. PO SCH (09:35)
[2020-09-20] MEDS: CARBIDOPA/LEVODOPA 25/100MG TABLET PO SCH ×3 (09:35→20:59)
[2020-09-20] MEDS: amLODIPine BESYLATE 10 MG TABLET PO SCH (09:35)
[2020-09-20] MEDS: CARVEDILOL 12.5 MG TABLET PO SCH ×2 (09:36→17:30)
--- NOTE | 2020-09-20 12:04 | NUR ---
WEEKLY ACTIVITY THERAPY NOTE Date of Admission: 09/11/20 Date of AT Assessment: 09/13 Precipitating behaviors that initiated intake and admission: IT WAS REPORTED THAT PATIENT HAS BEEN HAVING DECREASED SLEEP, PARANOIA, HYPERVERBAL, DELUSIONS: THINKING THAT STAFF IS POISONING HIM, VISUAL HALLUCINATIONS THAT HE HAS LESIONS ALL OVER HIS BODY AND THAT HIS FACILITY HAS GIVEN HIM CANCER. Goal aimed: increase stress management and relaxation skills Initial Goal: Pt will participate in at least five individual or group Activity Therapy sessions per week. Weekly progress towards goal: achieved, 01/20 Group participation level: 1 min, 2 mod, 6 full, 1 full 1:1 Weekly highlights: patio time/bubbles/ watering plants Thursday, requested a bible Thursday, flexibility exercises Thursday, provided exercise examples Thursday, danced during music group Thursday, cezar chi exercises Thursday Behaviors observed: assisting peers, pleasant, less hyperverbal, nore calm Plan: Change goal to: Pt will participate in all group Activity Therapy sessions offered. Beneficial adaptations:
[2020-09-20 15:45] VITALS: BP 151/92
--- NOTE | 2020-09-20 16:08 | NUR ---
VISHNU received call from pt guardian, Delano, to discuss how pt is doing. VISHNU did let Delano know that pt is doing much better with his grazyna; the hyperverbal and posturing has calmed significantly. However, pt does appear to not be sleeping well with periods of insomnia and requires a sleep aid. Delano questioned what that looked like and VISHNU informed him that pt is up walking around in his room as staff are completing 15 minute checks. He has to be reminded to lay in bed and give the medication a chance to work. Pt does continue to have some delusion as he believes that Delano is reading his mail and feels it is a violation and thinks he needs a probate lawyer to check it out. Delano denies reading his incoming mail; however, does intercept outgoing mail as pt has a habit of writing letters to random pipe cleaning machine operator and businesses about his treatment or how poorly "he is getting treated". VISHNU let Delano know that he wants to discharge to [facility] in [place] and Delano reports after pt behaviors and this hospitalization, [facility] is not an option for him. Pt will return to [facility], in which VISHNU discussed as Thursday or of next week. As it stands, Delano has requested to allow pt one call on Thursday and one call on Thursday. Both calls will need to be monitored by staff to prevent him from making additional phone calls. VISHNU will follow up with Delano on Thursday unless something pertinent comes up.
--- NOTE | 2020-09-20 18:09 | NUR ---
Patient alert and oriented x3 was med compliant and cooperative. Patient did complain about not hearing from his guardian to approve outgoing phone calls at this time. Patient is very frustrated by this situation. Patient has a good appetite. Patient very social and helpful with other patients and staff. There were no complaints of pain or discomfort to report. Will continue to monitor patient.
[2020-09-20] MEDS: DIVALPROEX ER 250 MG TAB.ER.24H. PO SCH (20:57)
[2020-09-20] MEDS: traZODone 100 MG TABLET. PO SCH (20:58)
[2020-09-20] MEDS: TAMSULOSIN 0.4 MG CAP.ER.24H. PO SCH (20:58)
[2020-09-20] MEDS: MELATONIN 3 MG TABLET PO SCH (20:59)
[2020-09-20] MEDS: ATORVASTATIN CALCIUM 20 MG TABLET PO SCH (21:00)
[2020-09-20] MEDS: risperiDONE 1 MG TABLET. PO SCH (21:01)
--- NOTE | 2020-09-20 21:57 | PDOC ---
Exam Note: Joel Note: Please also refer to the separate dictated note~for this date of service dictated separately.~Patient seen individually. Discussed the patient with Nursing staff reviewed the chart.~Reviewed interim history and current functioning. Reviewed vital signs,~Labs/ Radiology~and current medications noted below. Continue current treatment with the changes noted in the dictated addendum note Assessment: Vital Signs/I&O: Vital Signs Date Time Temp Pulse Resp B/P (MAP) Pulse Ox O2 Delivery O2 Flow Rate FiO2 09/20/20 17:30 75 151/92 09/20/20 15:45 98.4 18 97 09/20/20 05:59 Room Air I & O 09/19/20 09/19/20 09/20/20 15:00 23:00 07:00 Intake Total 720 ml 480 ml Balance 720 ml 480 ml Labs: Laboratory Tests Test 09/20/20 05:50 09/20/20 07:23 09/20/20 12:04 09/20/20 16:24 White Blood Count 5.3 x10^3/uL (4.0-11.0) Red Blood Count 4.26 x10^6/uL (4.30-5.70) L Hemoglobin 13.0 g/dL (13.0-17.5) Hematocrit 39.0 % (39.0-53.0) Mean Corpuscular Volume 92 fL (79-100) Mean Corpuscular Hemoglobin 31 pg (25-35) Mean Corpuscular Hemoglobin Concent 33 g/dL (31-37) Red Cell Distribution Width 15.3 % (11.5-14.5) H Platelet Count 154 x10^3/uL (140-400) Neutrophils (%) (Auto) 50 % (31-73) Lymphocytes (%) (Auto) 34 % (24-48) Monocytes (%) (Auto) 14 % (0-9) H Eosinophils (%) (Auto) 1 % (0-3) Basophils (%) (Auto) 1 % (0-3) Neutrophils # (Auto) 2.7 x10^3uL (1.8-7.7) Lymphocytes # (Auto) 1.8 x10^3/uL (1.0-4.8) Monocytes # (Auto) 0.7 x10^3/uL (0.0-1.1) Eosinophils # (Auto) 0.1 x10^3/uL (0.0-0.7) Basophils # (Auto) 0.0 x10^3/uL (0.0-0.2) Sodium Level 140 mmol/L (136-145) Potassium Level 4.0 mmol/L (3.5-5.1) Chloride Level 104 mmol/L (98-107) Carbon Dioxide Level 29 mmol/L (21-32) Anion Gap 7 (6-14) Blood Urea Nitrogen 15 mg/dL (8-26) Creatinine 0.8 mg/dL (0.7-1.3) Estimated GFR (Cockcroft-Gault) 97.0 BUN/Creatinine Ratio 19 (6-20) Glucose Level 118 mg/dL (70-99) H Calcium Level 8.5 mg/dL (8.5-10.1) Total Bilirubin 0.3 mg/dL (0.2-1.0) Aspartate Amino Transferase (AST) 20 U/L (15-37) Alanine Aminotransferase (ALT) 28 U/L (16-63) Alkaline Phosphatase 84 U/L (46-116) Total Protein 6.1 g/dL (6.4-8.2) L Albumin 3.5 g/dL (3.4-5.0) Albumin/Globulin Ratio 1.3 (1.0-1.7) Valproic Acid Level 51 mcg/mL (50-100) Valproic Acid Last Dose Date 09/19/20 Valproic Acid Last Dose Time 2100 Glucose (Fingerstick) 124 mg/dL (70-99) H 82 mg/dL (70-99) 134 mg/dL (70-99) H Test 09/20/20 19:07 Glucose (Fingerstick) 162 mg/dL (70-99) H Current Medications: Meds: Laboratory Tests Test 09/20/20 05:50 09/20/20 07:23 09/20/20 12:04 09/20/20 16:24 White Blood Count 5.3 x10^3/uL Red Blood Count 4.26 x10^6/uL Hemoglobin 13.0 g/dL Hematocrit 39.0 % Mean Corpuscular Volume 92 fL Mean Corpuscular Hemoglobin 31 pg Mean Corpuscular Hemoglobin Concent 33 g/dL Red Cell Distribution Width 15.3 % Platelet Count 154 x10^3/uL Neutrophils (%) (Auto) 50 % Lymphocytes (%) (Auto) 34 % Monocytes (%) (Auto) 14 % Eosinophils (%) (Auto) 1 % Basophils (%) (Auto) 1 % Neutrophils # (Auto) 2.7 x10^3uL Lymphocytes # (Auto) 1.8 x10^3/uL Monocytes # (Auto) 0.7 x10^3/uL Eosinophils # (Auto) 0.1 x10^3/uL Basophils # (Auto) 0.0 x10^3/uL Sodium Level 140 mmol/L Potassium Level 4.0 mmol/L Chloride Level 104 mmol/L Carbon Dioxide Level 29 mmol/L Anion Gap 7 Blood Urea Nitrogen 15 mg/dL Creatinine 0.8 mg/dL Estimated GFR (Cockcroft-Gault) 97.0 BUN/Creatinine Ratio 19 Glucose Level 118 mg/dL Calcium Level 8.5 mg/dL Total Bilirubin 0.3 mg/dL Aspartate Amino Transf (AST/SGOT) 20 U/L Alanine Aminotransferase (ALT/SGPT) 28 U/L Alkaline Phosphatase 84 U/L Total Protein 6.1 g/dL Albumin 3.5 g/dL Albumin/Globulin Ratio 1.3 Valproic Acid (Depakene) Level 51 mcg/mL Valproic Acid Last Dose Date 09/19/20 Valproic Acid Last Dose Time 2100 Glucose (Fingerstick) 124 mg/dL 82 mg/dL 134 mg/dL Test 09/20/20 19:07 Glucose (Fingerstick) 162 mg/dL Current Medications Medications (Trade) Dose Ordered Sig/Moe Route PRN Reason Start Time Stop Time Status Last Admin Dose Admin Acetaminophen (Tylenol) 650 mg PRN Q6HRS PRN PO MILD PAIN / TEMP > 100.3'F 09/12/20 01:00 09/17/20 00:35 Multi-Ingredient Ointment (Analgesic [place]) 1 miquel PRN QID PRN TP MUSCLE PAIN 09/12/20 01:00 Al Hydroxide/Mg Hydroxide (Mylanta Plus Xs) 15 ml PRN AFTMEALHC PRN PO DYSPEPSIA 09/12/20 01:00 Magnesium Hydroxide (Milk Of Magnesia) 2,400 mg PRN QHS PRN PO CONSTIPATION 09/12/20 01:00 09/20/20 06:25 Nicotine (Nicoderm Cq 21mg Patch) 1 patch DAILY TD 09/12/20 09:00 09/20/20 05:04 Alprazolam (Xanax) 0.5 mg TID PO 09/12/20 02:00 09/12/20 02:50 DC 09/12/20 02:01 Olanzapine (ZyPREXA) 5 mg HS PO 09/12/20 02:00 09/14/20 17:48 DC 09/13/20 20:20 Trazodone HCl (Desyrel) 100 mg HS PO 09/12/20 02:00 09/17/20 20:50 DC 09/17/20 00:06 Benztropine Mesylate (Cogentin) 2 mg BID PO 09/12/20 02:00 09/12/20 02:51 DC 09/12/20 02:01 Melatonin (Melatonin) 9 mg HS PO 09/12/20 02:00 09/12/20 02:51 DC 09/12/20 02:01 Quetiapine Fumarate (SEROquel) 200 mg HS PO 09/12/20 02:00 09/15/20 17:39 DC 09/14/20 20:31 Amlodipine Besylate (Norvasc) 10 mg DAILY PO 09/12/20 09:00 09/20/20 09:35 Calcium Polycarbophil (Fibercon) 625 mg DAILY PO 09/12/20 09:00 09/12/20 09:12 DC Carbidopa/Levodopa (Sinemet 25/100) 2 tab TID PO 09/12/20 09:00 09/14/20 22:00 DC 09/14/20 20:29 Cetirizine HCl (ZyrTEC) 10 mg PRN DAILY PRN PO ALLERGIES 09/12/20 02:30 Ferrous Sulfate (Feosol) 325 mg TIDWMEALS PO 09/12/20 08:00 09/20/20 17:30 Montelukast Sodium (Singulair) 10 mg DAILY PO 09/12/20 09:00 09/20/20 09:35 Artificial Tears (Artificial Tears) 1 drop PRN QID PRN OU DRY EYE 09/12/20 02:30 Tamsulosin HCl (Flomax) 0.4 mg HS PO 09/12/20 21:00 09/20/20 20:58 Lisinopril (Prinivil) 30 mg DAILY PO 09/12/20 09:00 09/20/20 09:35 Non-Formulary Medication (Loratadine ) 10 mg DAILY PO 09/12/20 09:00 09/12/20 02:37 DC Polyethylene Glycol (miraLAX) 17 gm DAILY PO 09/12/20 09:00 09/20/20 09:33 Non-Formulary Medication ([Diphen/Maalox/ Lido] ) 5 ml QID PRN PO Abdominal Pain 09/12/20 02:30 UNV Atorvastatin Calcium (Lipitor) 40 mg QHS PO 09/12/20 21:00 09/20/20 21:00 Carvedilol (Coreg) 25 mg BIDWMEALS PO 09/12/20 08:00 09/20/20 17:30 Simethicone (Gas-X) 80 mg PRN BID PRN PO GAS / BLOATING 09/12/20 02:45 Multi-Ingredient Mouthwash/Gargle (Magic Mouthwash) 10 ml PRN QID PRN PO MOUTH PAIN 09/12/20 09:00 Alprazolam (Xanax) 0.5 mg TID PO 09/12/20 09:00 09/20/20 21:01 Buspirone HCl (Buspar) 7.5 mg TID PO 09/12/20 03:00 09/15/20 17:39 DC 09/15/20 13:07 Chlorpromazine HCl (Thorazine) 25 mg PRN BID PRN IV PSYCHOSIS 09/12/20 02:45 Melatonin (Melatonin) 9 mg QHS PO 09/12/20 21:00 09/20/20 20:59 Benztropine Mesylate (Cogentin) 2 mg BID PO 09/12/20 09:00 09/20/20 21:00 Insulin Human Lispro (HumaLOG) 0-9 UNITS TIDWMEALS SQ 09/12/20 08:00 09/19/20 17:43 Calcium Polycarbophil (Fibercon) 625 mg DAILY PO 09/12/20 09:00 09/20/20 09:35 Haloperidol Lactate (Haldol) 5 mg DAILY IM 09/13/20 11:00 09/16/20 18:26 DC 09/16/20 09:58 Lorazepam (Ativan Inj) 1 mg 1X ONCE IM 09/13/20 10:45 09/13/20 10:56 DC 09/13/20 11:08 Lorazepam (Ativan Inj) 1 mg DAILY IM 09/13/20 11:00 09/18/20 18:04 DC Divalproex Sodium (Depakote Er) 500 mg QHS PO 09/13/20 21:00 09/17/20 17:12 DC 09/16/20 20:50 Carbidopa/Levodopa (Sinemet 25/100) 1 tab DAILY08 PO 09/15/20 08:00 09/17/20 08:01 DC 09/17/20 08:18 Carbidopa/Levodopa (Sinemet 25/100) 2 tab 1400,2100 PO 09/15/20 14:00 09/17/20 21:01 DC 09/17/20 20:41 Carbidopa/Levodopa (Sinemet 25/100) 1 tab TID PO 09/21/20 09:00 Carbidopa/Levodopa (Sinemet 25/100) 1 tab 0900,1400 PO 09/18/20 09:00 09/20/20 14:01 DC 09/20/20 14:53 Carbidopa/Levodopa (Sinemet 25/100) 2 tab QHS PO 09/18/20 21:00 09/20/20 21:01 DC 09/20/20 20:59 Risperidone (RisperDAL) 2 mg QHS PO 09/14/20 21:00 09/16/20 18:26 DC 09/15/20 20:47 Risperidone (RisperDAL) 2.5 mg QHS PO 09/16/20 21:00 09/18/20 19:10 DC 09/17/20 20:41 Divalproex Sodium (Depakote Er) 750 mg QHS PO 09/17/20 21:00 09/20/20 20:57 Trazodone HCl (Desyrel) 100 mg PRN QHS PRN PO INSOMNIA 09/17/20 20:45 09/19/20 23:07 Trazodone HCl (Desyrel) 100 mg QHS PO 09/17/20 21:00 09/20/20 20:58 Risperidone (RisperDAL) 3.5 mg QHS PO 09/18/20 21:00 6/10/21 21:01 I have reviewed the current psychotropics carefully including drug interactions. Risk benefit ratio favors no change other than as noted in my dictated progress note. Diagnosis: Problems: (1) Schizoaffective disorder, bipolar type (2) Impulse control disorder, unspecified (3) Anxiety disorder, unspecified (4) Bipolar disorder, current episode manic, severe with psychotic features BRIGIDA WOMACK MD Sep 20, 2020 21:57
--- NOTE | 2020-09-20 23:09 | NUR ---
Patient is located in the day room for assessments and medications. Pleasant demeanor, interactive and appropriate with this mortgage underwriter. Compliant with assessments and medications taken whole. He has become attached to another patient here who is blind, and helps him ambulate around the unit. At one point, the other patient began to get agitated and delusional. Celestine was very cooperative with staff when asked to provide the staff space to deescalate the patient. No hyperverbal or paranoid behavior displayed so far this shift. No delusions/hallucinations voiced. Patient denies any pain or discomfort. Denies SI. He appears to be sleeping comfortably at present time. Will continue to monitor.
[2020-09-21 05:56] VITALS: BP 143/80
--- NOTE | 2020-09-21 07:11 | PDOC ---
Exam Note: Joel Note: This note is a late entry for 09/20/2020 covers elements not covered in my initial note. Subjective: The patient was reviewed in the morning of 09/20/2020 for a treatment team meeting with Raina Germain, Katy Aguiar and Sindhu (social work assistant), Sigrid, activity therapy and Juani ROONEY, discussed and reviewed the chart. The patient slept 4-1/2 hours previous night. He has been somewhat anxious, obsessing about getting a oven dumper. He has attended 10 groups in the past week, obsessive about not having bowel movement, pleasant. He has been assisting peers with better social skills. Review of Systems: Positive for constipation. Ambulation impaired in Broda chair. No CV, , pulmonary, eye, ENT system symptoms on review. Mental Status Exam: The patient is reasonably oriented. Speech coherent. Abstraction fair. Computation impaired. Language function intact. Mood and affect improved, less psychotic. No suicidal or homicidal ideation. Laboratory Data: Reviewed. Impression: Bipolar disorder mixed with psychotic features. Anxiety disorder unspecified. Impulse control disorder unspecified. Schizoaffective disorder, bipolar type, manic with psychotic features. Plan: No change from initial note. Risperdal has been increased. Assessment: Vital Signs/I&O: Vital Signs Date Time Temp Pulse Resp B/P (MAP) Pulse Ox O2 Delivery O2 Flow Rate FiO2 09/21/20 05:56 96.1 64 16 143/80 (101) 100 Room Air I & O 09/20/20 09/20/20 09/21/20 15:00 23:00 07:00 Intake Total 840 ml 120 ml 360 ml Balance 840 ml 120 ml 360 ml Labs: Laboratory Tests Test 09/20/20 07:23 09/20/20 12:04 09/20/20 16:24 09/20/20 19:07 Glucose (Fingerstick) 124 mg/dL (70-99) H 82 mg/dL (70-99) 134 mg/dL (70-99) H 162 mg/dL (70-99) H Current Medications: Meds: Laboratory Tests Test 09/20/20 07:23 09/20/20 12:04 09/20/20 16:24 09/20/20 19:07 Glucose (Fingerstick) 124 mg/dL 82 mg/dL 134 mg/dL 162 mg/dL Current Medications Medications (Trade) Dose Ordered Sig/Moe Route PRN Reason Start Time Stop Time Status Last Admin Dose Admin Acetaminophen (Tylenol) 650 mg PRN Q6HRS PRN PO MILD PAIN / TEMP > 100.3'F 09/12/20 01:00 09/17/20 00:35 Multi-Ingredient Ointment (Analgesic [place]) 1 miquel PRN QID PRN TP MUSCLE PAIN 09/12/20 01:00 Al Hydroxide/Mg Hydroxide (Mylanta Plus Xs) 15 ml PRN AFTMEALHC PRN PO DYSPEPSIA 09/12/20 01:00 Magnesium Hydroxide (Milk Of Magnesia) 2,400 mg PRN QHS PRN PO CONSTIPATION 09/12/20 01:00 09/20/20 06:25 Nicotine (Nicoderm Cq 21mg Patch) 1 patch DAILY TD 09/12/20 09:00 09/20/20 05:04 Alprazolam (Xanax) 0.5 mg TID PO 09/12/20 02:00 09/12/20 02:50 DC 09/12/20 02:01 Olanzapine (ZyPREXA) 5 mg HS PO 09/12/20 02:00 09/14/20 17:48 DC 09/13/20 20:20 Trazodone HCl (Desyrel) 100 mg HS PO 09/12/20 02:00 09/17/20 20:50 DC 09/17/20 00:06 Benztropine Mesylate (Cogentin) 2 mg BID PO 09/12/20 02:00 09/12/20 02:51 DC 09/12/20 02:01 Melatonin (Melatonin) 9 mg HS PO 09/12/20 02:00 09/12/20 02:51 DC 09/12/20 02:01 Quetiapine Fumarate (SEROquel) 200 mg HS PO 09/12/20 02:00 09/15/20 17:39 DC 09/14/20 20:31 Amlodipine Besylate (Norvasc) 10 mg DAILY PO 09/12/20 09:00 09/20/20 09:35 Calcium Polycarbophil (Fibercon) 625 mg DAILY PO 09/12/20 09:00 09/12/20 09:12 DC Carbidopa/Levodopa (Sinemet 25/100) 2 tab TID PO 09/12/20 09:00 09/14/20 22:00 DC 09/14/20 20:29 Cetirizine HCl (ZyrTEC) 10 mg PRN DAILY PRN PO ALLERGIES 09/12/20 02:30 Ferrous Sulfate (Feosol) 325 mg TIDWMEALS PO 09/12/20 08:00 09/20/20 17:30 Montelukast Sodium (Singulair) 10 mg DAILY PO 09/12/20 09:00 09/20/20 09:35 Artificial Tears (Artificial Tears) 1 drop PRN QID PRN OU DRY EYE 09/12/20 02:30 Tamsulosin HCl (Flomax) 0.4 mg HS PO 09/12/20 21:00 09/20/20 20:58 Lisinopril (Prinivil) 30 mg DAILY PO 09/12/20 09:00 09/20/20 09:35 Non-Formulary Medication (Loratadine ) 10 mg DAILY PO 09/12/20 09:00 09/12/20 02:37 DC Polyethylene Glycol (miraLAX) 17 gm DAILY PO 09/12/20 09:00 09/20/20 09:33 Non-Formulary Medication ([Diphen/Maalox/ Lido] ) 5 ml QID PRN PO Abdominal Pain 09/12/20 02:30 UNV Atorvastatin Calcium (Lipitor) 40 mg QHS PO 09/12/20 21:00 09/20/20 21:00 Carvedilol (Coreg) 25 mg BIDWMEALS PO 09/12/20 08:00 09/20/20 17:30 Simethicone (Gas-X) 80 mg PRN BID PRN PO GAS / BLOATING 09/12/20 02:45 Multi-Ingredient Mouthwash/Gargle (Magic Mouthwash) 10 ml PRN QID PRN PO MOUTH PAIN 09/12/20 09:00 Alprazolam (Xanax) 0.5 mg TID PO 09/12/20 09:00 09/20/20 21:01 Buspirone HCl (Buspar) 7.5 mg TID PO 09/12/20 03:00 09/15/20 17:39 DC 09/15/20 13:07 Chlorpromazine HCl (Thorazine) 25 mg PRN BID PRN IV PSYCHOSIS 09/12/20 02:45 Melatonin (Melatonin) 9 mg QHS PO 09/12/20 21:00 09/20/20 20:59 Benztropine Mesylate (Cogentin) 2 mg BID PO 09/12/20 09:00 09/20/20 21:00 Insulin Human Lispro (HumaLOG) 0-9 UNITS TIDWMEALS SQ 09/12/20 08:00 09/19/20 17:43 Calcium Polycarbophil (Fibercon) 625 mg DAILY PO 09/12/20 09:00 09/20/20 09:35 Haloperidol Lactate (Haldol) 5 mg DAILY IM 09/13/20 11:00 09/16/20 18:26 DC 09/16/20 09:58 Lorazepam (Ativan Inj) 1 mg 1X ONCE IM 09/13/20 10:45 09/13/20 10:56 DC 09/13/20 11:08 Lorazepam (Ativan Inj) 1 mg DAILY IM 09/13/20 11:00 09/18/20 18:04 DC Divalproex Sodium (Depakote Er) 500 mg QHS PO 09/13/20 21:00 09/17/20 17:12 DC 09/16/20 20:50 Carbidopa/Levodopa (Sinemet 25/100) 1 tab DAILY08 PO 09/15/20 08:00 09/17/20 08:01 DC 09/17/20 08:18 Carbidopa/Levodopa (Sinemet 25/100) 2 tab 1400,2100 PO 09/15/20 14:00 09/17/20 21:01 DC 09/17/20 20:41 Carbidopa/Levodopa (Sinemet 25/100) 1 tab TID PO 09/21/20 09:00 Carbidopa/Levodopa (Sinemet 25/100) 1 tab 0900,1400 PO 09/18/20 09:00 09/20/20 14:01 DC 09/20/20 14:53 Carbidopa/Levodopa (Sinemet 25/100) 2 tab QHS PO 09/18/20 21:00 09/20/20 21:01 DC 09/20/20 20:59 Risperidone (RisperDAL) 2 mg QHS PO 09/14/20 21:00 09/16/20 18:26 DC 09/15/20 20:47 Risperidone (RisperDAL) 2.5 mg QHS PO 09/16/20 21:00 09/18/20 19:10 DC 09/17/20 20:41 Divalproex Sodium (Depakote Er) 750 mg QHS PO 09/17/20 21:00 09/20/20 20:57 Trazodone HCl (Desyrel) 100 mg PRN QHS PRN PO INSOMNIA 09/17/20 20:45 09/19/20 23:07 Trazodone HCl (Desyrel) 100 mg QHS PO 09/17/20 21:00 09/20/20 20:58 Risperidone (RisperDAL) 3.5 mg QHS PO 09/18/20 21:00 09/20/20 21:01 I have reviewed the current psychotropics carefully including drug interactions. Risk benefit ratio favors no change other than as noted in my dictated progress note. Diagnosis: Problems: (1) Schizoaffective disorder, bipolar type (2) Impulse control disorder, unspecified (3) Anxiety disorder, unspecified (4) Bipolar disorder, current episode manic, severe with psychotic features BRIGIDA WOMACK MD Sep 21, 2020 07:10
[2020-09-21] MEDS: INSULIN LISPRO 300 UNITS/3 ML VIAL. SQ SCH ×3 (08:00→17:00)
[2020-09-21] MEDS: BENZTROPINE MESYLATE 1 MG TABLET PO SCH ×2 (08:10→20:30)
[2020-09-21] MEDS: CARBIDOPA/LEVODOPA 25/100MG TABLET PO SCH ×3 (08:11→20:32)
[2020-09-21] MEDS: FERROUS SULFATE 325 MG TABLET. PO SCH ×3 (08:11→16:44)
[2020-09-21] MEDS: CALCIUM POLYCARBOPHIL 625 MG TABLET PO SCH (08:11)
[2020-09-21] MEDS: NICOTINE 21MG PATCH. TD SCH (08:11)
[2020-09-21] MEDS: ALPRAZolam 0.5 MG TABLET PO SCH ×3 (08:11→20:32)
[2020-09-21] MEDS: POLYETHYLENE GLYCOL 3350 17 GM PACKET. PO SCH (08:11)
[2020-09-21] MEDS: MONTELUKAST 10 MG TABLET. PO SCH (08:11)
[2020-09-21] MEDS: amLODIPine BESYLATE 10 MG TABLET PO SCH (08:12)
[2020-09-21] MEDS: CARVEDILOL 12.5 MG TABLET PO SCH ×2 (08:12→16:44)
[2020-09-21] MEDS: LISINOPRIL 10 MG TABLET PO SCH (08:12)
--- NOTE | 2020-09-21 09:10 | PN ---
DATE: 09/19/2020 SUBJECTIVE: The patient denies any new medical or neurological complaints. He denies any falls or injuries. He denies tremor or rigidity of the upper or lower extremities. He walks fine and he sleeps well. He denies any new medical complaints. OBJECTIVE: GENERAL: Well-developed, well-nourished male in no acute distress. VITAL SIGNS: Blood pressure 122/77, respiratory rate 18, pulse is 66 and regular, oxygen saturation 99% on room air and temperature is 98. HEENT: Normocephalic, atraumatic, otherwise unremarkable. NECK: Supple, negative for carotid bruit, lymphadenopathy or thyromegaly. LUNGS: Clear to A and P. CARDIOVASCULAR: Regular rate and rhythm. Normal S1, S2. There is no S3, S4 murmur. ABDOMEN: Soft. Bowel sounds positive. EXTREMITIES: Negative for cyanosis, clubbing or pedal edema. NEUROLOGIC: The patient is alert and oriented x3. Speech is fluent. There is no language dysfunction. Judgment and abstracting thinkings are normal. The patient denies hallucination or delusion. Cranial nerves are intact. No focal motor or sensory deficits. The tone is normal. The strength is 5/5 throughout. Sensory examination revealed normal pinprick, light touch, vibratory and position senses. Deep tendon reflexes were symmetric and hypoactive with absent Achilles responses. Gait: The patient tendon reflexes were symmetric and active without pathology responses. Gait and coordination are normal. IMPRESSION: 1. Longstanding history of Parkinson's disease without any evidence of parkinsonism at this time. 2. Multiple medical problems include hypertension, hyperlipidemia, diabetes mellitus, degenerative joint disease. 3. Multiple psychiatric problems include bipolar disorder, anxiety disorder and schizoaffective disorders. RECOMMENDATIONS: 1. Continue with carbidopa/levodopa at 25/100 t.i.d. since the patient continue with current medical and psychiatric care. 2. The patient is neurologically stable. MICKY/REBECCA/MOH DR: MICKY/tomas TID: [id number]
[2020-09-21 15:32] VITALS: BP 115/62
--- NOTE | 2020-09-21 17:14 | NUR ---
Patient is med compliant and cooperative with cares, no behaviors to report appetite good he eats meals in the dining room with the other patients he is very helpful to other patients and staff members and is social. Patient was able to make a phone call today to his sister Caroline which went really well he was very happy that his guardian allowed him one phone call today and will allow him another phone call on Thursday. Patient had no complaints of pain or discomfort to report no new orders from Dr Wang or Dr Hartman will continue to monitor patient. Addendum: 09/21/20 at 1738 by PHOEBE KOO RN Patient 1400 xanax was held because patient was sleeping in the day room so that dose was Addendum: 09/21/20 at 1739 by PHOEBE KOO RN Dr Hartman is tapering patient off xanax he will take 0.5 bid PO for 3 days then he will take one 0.5mg daily for three days then he will stop the dose all together.
[2020-09-21] MEDS: MELATONIN 3 MG TABLET PO SCH (20:29)
[2020-09-21] MEDS: ATORVASTATIN CALCIUM 20 MG TABLET PO SCH (20:31)
[2020-09-21] MEDS: DIVALPROEX ER 250 MG TAB.ER.24H. PO SCH (20:31)
[2020-09-21] MEDS: TAMSULOSIN 0.4 MG CAP.ER.24H. PO SCH (20:32)
[2020-09-21] MEDS: traZODone 100 MG TABLET. PO SCH (20:32)
[2020-09-21] MEDS: risperiDONE 1 MG TABLET. PO SCH (20:33)
--- NOTE | 2020-09-21 22:03 | PDOC ---
Exam Note: Joel Note: Please also refer to the separate dictated note~for this date of service dictated separately.~Patient seen individually. Discussed the patient with Nursing staff reviewed the chart.~Reviewed interim history and current functioning. Reviewed vital signs,~Labs/ Radiology~and current medications noted below. Continue current treatment with the changes noted in the dictated addendum note Assessment: Vital Signs/I&O: Vital Signs Date Time Temp Pulse Resp B/P (MAP) Pulse Ox O2 Delivery O2 Flow Rate FiO2 09/21/20 16:44 82 115/62 09/21/20 15:32 97.9 18 98 Room Air I & O 09/20/20 09/20/20 09/21/20 15:00 23:00 07:00 Intake Total 840 ml 120 ml 360 ml Balance 840 ml 120 ml 360 ml Labs: Laboratory Tests Test 09/21/20 07:38 09/21/20 11:43 09/21/20 17:05 09/21/20 19:06 Glucose (Fingerstick) 115 mg/dL (70-99) H 131 mg/dL (70-99) H 111 mg/dL (70-99) H 192 mg/dL (70-99) H Current Medications: Meds: Laboratory Tests Test 09/21/20 07:38 09/21/20 11:43 09/21/20 17:05 09/21/20 19:06 Glucose (Fingerstick) 115 mg/dL 131 mg/dL 111 mg/dL 192 mg/dL Current Medications Medications (Trade) Dose Ordered Sig/Moe Route PRN Reason Start Time Stop Time Status Last Admin Dose Admin Acetaminophen (Tylenol) 650 mg PRN Q6HRS PRN PO MILD PAIN / TEMP > 100.3'F 09/12/20 01:00 09/17/20 00:35 Multi-Ingredient Ointment (Analgesic [place]) 1 miquel PRN QID PRN TP MUSCLE PAIN 09/12/20 01:00 Al Hydroxide/Mg Hydroxide (Mylanta Plus Xs) 15 ml PRN AFTMEALHC PRN PO DYSPEPSIA 09/12/20 01:00 Magnesium Hydroxide (Milk Of Magnesia) 2,400 mg PRN QHS PRN PO CONSTIPATION 09/12/20 01:00 09/20/20 06:25 Nicotine (Nicoderm Cq 21mg Patch) 1 patch DAILY TD 09/12/20 09:00 09/21/20 08:11 Alprazolam (Xanax) 0.5 mg TID PO 09/12/20 02:00 09/12/20 02:50 DC 09/12/20 02:01 Olanzapine (ZyPREXA) 5 mg HS PO 09/12/20 02:00 09/14/20 17:48 DC 09/13/20 20:20 Trazodone HCl (Desyrel) 100 mg HS PO 09/12/20 02:00 09/17/20 20:50 DC 09/17/20 00:06 Benztropine Mesylate (Cogentin) 2 mg BID PO 09/12/20 02:00 09/12/20 02:51 DC 09/12/20 02:01 Melatonin (Melatonin) 9 mg HS PO 09/12/20 02:00 09/12/20 02:51 DC 09/12/20 02:01 Quetiapine Fumarate (SEROquel) 200 mg HS PO 09/12/20 02:00 09/15/20 17:39 DC 09/14/20 20:31 Amlodipine Besylate (Norvasc) 10 mg DAILY PO 09/12/20 09:00 09/21/20 08:12 Calcium Polycarbophil (Fibercon) 625 mg DAILY PO 09/12/20 09:00 09/12/20 09:12 DC Carbidopa/Levodopa (Sinemet 25/100) 2 tab TID PO 09/12/20 09:00 09/14/20 22:00 DC 09/14/20 20:29 Cetirizine HCl (ZyrTEC) 10 mg PRN DAILY PRN PO ALLERGIES 09/12/20 02:30 Ferrous Sulfate (Feosol) 325 mg TIDWMEALS PO 09/12/20 08:00 09/21/20 16:44 Montelukast Sodium (Singulair) 10 mg DAILY PO 09/12/20 09:00 09/21/20 08:11 Artificial Tears (Artificial Tears) 1 drop PRN QID PRN OU DRY EYE 09/12/20 02:30 Tamsulosin HCl (Flomax) 0.4 mg HS PO 09/12/20 21:00 09/21/20 20:32 Lisinopril (Prinivil) 30 mg DAILY PO 09/12/20 09:00 09/21/20 08:12 Non-Formulary Medication (Loratadine ) 10 mg DAILY PO 09/12/20 09:00 09/12/20 02:37 DC Polyethylene Glycol (miraLAX) 17 gm DAILY PO 09/12/20 09:00 09/21/20 08:11 Non-Formulary Medication ([Diphen/Maalox/ Lido] ) 5 ml QID PRN PO Abdominal Pain 09/12/20 02:30 UNV Atorvastatin Calcium (Lipitor) 40 mg QHS PO 09/12/20 21:00 09/21/20 20:31 Carvedilol (Coreg) 25 mg BIDWMEALS PO 09/12/20 08:00 09/21/20 16:44 Simethicone (Gas-X) 80 mg PRN BID PRN PO GAS / BLOATING 09/12/20 02:45 Multi-Ingredient Mouthwash/Gargle (Magic Mouthwash) 10 ml PRN QID PRN PO MOUTH PAIN 09/12/20 09:00 Alprazolam (Xanax) 0.5 mg TID PO 09/12/20 09:00 09/21/20 17:40 DC 09/21/20 08:11 Buspirone HCl (Buspar) 7.5 mg TID PO 09/12/20 03:00 09/15/20 17:39 DC 09/15/20 13:07 Chlorpromazine HCl (Thorazine) 25 mg PRN BID PRN IV PSYCHOSIS 09/12/20 02:45 Melatonin (Melatonin) 9 mg QHS PO 09/12/20 21:00 09/21/20 20:29 Benztropine Mesylate (Cogentin) 2 mg BID PO 09/12/20 09:00 09/21/20 20:30 Insulin Human Lispro (HumaLOG) 0-9 UNITS TIDWMEALS SQ 09/12/20 08:00 09/19/20 17:43 Calcium Polycarbophil (Fibercon) 625 mg DAILY PO 09/12/20 09:00 09/21/20 08:11 Haloperidol Lactate (Haldol) 5 mg DAILY IM 09/13/20 11:00 09/16/20 18:26 DC 09/16/20 09:58 Lorazepam (Ativan Inj) 1 mg 1X ONCE IM 09/13/20 10:45 09/13/20 10:56 DC 09/13/20 11:08 Lorazepam (Ativan Inj) 1 mg DAILY IM 09/13/20 11:00 09/18/20 18:04 DC Divalproex Sodium (Depakote Er) 500 mg QHS PO 09/13/20 21:00 09/17/20 17:12 DC 09/16/20 20:50 Carbidopa/Levodopa (Sinemet 25/100) 1 tab DAILY08 PO 09/15/20 08:00 09/17/20 08:01 DC 09/17/20 08:18 Carbidopa/Levodopa (Sinemet 25/100) 2 tab 1400,2100 PO 09/15/20 14:00 09/17/20 21:01 DC 09/17/20 20:41 Carbidopa/Levodopa (Sinemet 25/100) 1 tab TID PO 09/21/20 09:00 09/21/20 20:32 Carbidopa/Levodopa (Sinemet 25/100) 1 tab 0900,1400 PO 09/18/20 09:00 09/20/20 14:01 DC 09/20/20 14:53 Carbidopa/Levodopa (Sinemet 25/100) 2 tab QHS PO 09/18/20 21:00 09/20/20 21:01 DC 09/20/20 20:59 Risperidone (RisperDAL) 2 mg QHS PO 09/14/20 21:00 09/16/20 18:26 DC 09/15/20 20:47 Risperidone (RisperDAL) 2.5 mg QHS PO 09/16/20 21:00 09/18/20 19:10 DC 09/17/20 20:41 Divalproex Sodium (Depakote Er) 750 mg QHS PO 09/17/20 21:00 09/21/20 20:31 Trazodone HCl (Desyrel) 100 mg PRN QHS PRN PO INSOMNIA 09/17/20 20:45 09/19/20 23:07 Trazodone HCl (Desyrel) 100 mg QHS PO 09/17/20 21:00 09/21/20 20:32 Risperidone (RisperDAL) 3.5 mg QHS PO 09/18/20 21:00 09/21/20 20:33 Alprazolam (Xanax) 0.5 mg BID PO 09/21/20 21:00 09/23/20 21:00 09/21/20 20:32 Alprazolam (Xanax) 0.5 mg DAILY PO 09/22/20 09:00 09/26/20 09:00 Current Medications Medications (Trade) Dose Ordered Sig/Moe Route PRN Reason Start Time Stop Time Status Last Admin Dose Admin Carbidopa/Levodopa (Sinemet 25/100) 1 tab TID PO 09/21/20 09:00 09/21/20 20:32 Alprazolam (Xanax) 0.5 mg BID PO 09/21/20 21:00 09/23/20 21:00 09/21/20 20:32 I have reviewed the current psychotropics carefully including drug interactions. Risk benefit ratio favors no change other than as noted in my dictated progress note. Diagnosis: Problems: (1) Schizoaffective disorder, bipolar type (2) Impulse control disorder, unspecified (3) Anxiety disorder, unspecified (4) Bipolar disorder, current episode manic, severe with psychotic features BRIGIDA WOMACK MD Sep 21, 2020 22:03
--- NOTE | 2020-09-21 23:33 | NUR ---
Patient is located in the day room for assessments and medications. Pleasant demeanor, interactive and appropriate with this manual writer. Compliant with assessments and medications taken whole. No hyperverbal or paranoid behavior displayed so far this shift. No delusions/hallucinations voiced. Patient denies any pain or discomfort. Denies SI. He appears to be sleeping comfortably at present time. Will continue to monitor.
[2020-09-22 06:11] VITALS: BP 146/88
--- NOTE | 2020-09-22 07:04 | PDOC ---
Exam Note: Joel Note: This note is a late entry for 09/21/2020 covers elements not covered in my initial note. Subjective: The patient was seen individually in the evening of 09/21/2020 with Faraz ROONEY, discussed and reviewed the chart. The patient slept 2 hours previous night. The patient had a telephone call with his sister, very happy about this. He is compliant with his medications but was complaining he was given extra anti-hypertensive last night, perhaps extra trazodone that made him overtly sedated. I did discuss this with nursing staff. Otherwise he is cooperative. Xanax at 2 p.m. was held because he was sedated. Review of Systems: No CV, , pulmonary, eye, ENT system symptoms on review. Mental Status Exam: The patient is reasonably oriented. Speech coherent, has some latency. Abstraction fair. Computation impaired. Language function intact. Mood and affect less grandiose, labile. Laboratory Data: Reviewed. Impression: Bipolar disorder mixed with psychotic features. Anxiety disorder unspecified. Impulse control disorder unspecified. Schizoaffective disorder, bipolar type, manic with psychotic features. Plan: No change from initial note. The patient is on Xanax 0.5 mg t.i.d. We will drop it down to b.i.d. for 3 days, once a day for 3 days and stop it. Maintain rest of the psychotropics unchanged for now. Assessment: Vital Signs/I&O: Vital Signs Date Time Temp Pulse Resp B/P (MAP) Pulse Ox O2 Delivery O2 Flow Rate FiO2 09/22/20 06:11 97.1 62 16 146/88 (107) 100 Room Air I & O 09/21/20 09/21/20 09/22/20 15:00 23:00 07:00 Intake Total 965 ml 1080 ml Balance 965 ml 1080 ml Labs: Laboratory Tests Test 09/21/20 07:38 09/21/20 11:43 09/21/20 17:05 09/21/20 19:06 Glucose (Fingerstick) 115 mg/dL (70-99) H 131 mg/dL (70-99) H 111 mg/dL (70-99) H 192 mg/dL (70-99) H Current Medications: Meds: Laboratory Tests Test 09/21/20 07:38 09/21/20 11:43 09/21/20 17:05 09/21/20 19:06 Glucose (Fingerstick) 115 mg/dL 131 mg/dL 111 mg/dL 192 mg/dL Current Medications Medications (Trade) Dose Ordered Sig/Moe Route PRN Reason Start Time Stop Time Status Last Admin Dose Admin Acetaminophen (Tylenol) 650 mg PRN Q6HRS PRN PO MILD PAIN / TEMP > 100.3'F 09/12/20 01:00 09/17/20 00:35 Multi-Ingredient Ointment (Analgesic [place]) 1 miquel PRN QID PRN TP MUSCLE PAIN 09/12/20 01:00 Al Hydroxide/Mg Hydroxide (Mylanta Plus Xs) 15 ml PRN AFTMEALHC PRN PO DYSPEPSIA 09/12/20 01:00 Magnesium Hydroxide (Milk Of Magnesia) 2,400 mg PRN QHS PRN PO CONSTIPATION 09/12/20 01:00 09/20/20 06:25 Nicotine (Nicoderm Cq 21mg Patch) 1 patch DAILY TD 09/12/20 09:00 09/21/20 08:11 Alprazolam (Xanax) 0.5 mg TID PO 09/12/20 02:00 09/12/20 02:50 DC 09/12/20 02:01 Olanzapine (ZyPREXA) 5 mg HS PO 09/12/20 02:00 09/14/20 17:48 DC 09/13/20 20:20 Trazodone HCl (Desyrel) 100 mg HS PO 09/12/20 02:00 09/17/20 20:50 DC 09/17/20 00:06 Benztropine Mesylate (Cogentin) 2 mg BID PO 09/12/20 02:00 09/12/20 02:51 DC 09/12/20 02:01 Melatonin (Melatonin) 9 mg HS PO 09/12/20 02:00 09/12/20 02:51 DC 09/12/20 02:01 Quetiapine Fumarate (SEROquel) 200 mg HS PO 09/12/20 02:00 09/15/20 17:39 DC 09/14/20 20:31 Amlodipine Besylate (Norvasc) 10 mg DAILY PO 09/12/20 09:00 09/21/20 08:12 Calcium Polycarbophil (Fibercon) 625 mg DAILY PO 09/12/20 09:00 09/12/20 09:12 DC Carbidopa/Levodopa (Sinemet 25/100) 2 tab TID PO 09/12/20 09:00 09/14/20 22:00 DC 09/14/20 20:29 Cetirizine HCl (ZyrTEC) 10 mg PRN DAILY PRN PO ALLERGIES 09/12/20 02:30 Ferrous Sulfate (Feosol) 325 mg TIDWMEALS PO 09/12/20 08:00 09/21/20 16:44 Montelukast Sodium (Singulair) 10 mg DAILY PO 09/12/20 09:00 09/21/20 08:11 Artificial Tears (Artificial Tears) 1 drop PRN QID PRN OU DRY EYE 09/12/20 02:30 Tamsulosin HCl (Flomax) 0.4 mg HS PO 09/12/20 21:00 09/21/20 20:32 Lisinopril (Prinivil) 30 mg DAILY PO 09/12/20 09:00 09/21/20 08:12 Non-Formulary Medication (Loratadine ) 10 mg DAILY PO 09/12/20 09:00 09/12/20 02:37 DC Polyethylene Glycol (miraLAX) 17 gm DAILY PO 09/12/20 09:00 09/21/20 08:11 Non-Formulary Medication ([Diphen/Maalox/ Lido] ) 5 ml QID PRN PO Abdominal Pain 09/12/20 02:30 UNV Atorvastatin Calcium (Lipitor) 40 mg QHS PO 09/12/20 21:00 09/21/20 20:31 Carvedilol (Coreg) 25 mg BIDWMEALS PO 09/12/20 08:00 09/21/20 16:44 Simethicone (Gas-X) 80 mg PRN BID PRN PO GAS / BLOATING 09/12/20 02:45 Multi-Ingredient Mouthwash/Gargle (Magic Mouthwash) 10 ml PRN QID PRN PO MOUTH PAIN 09/12/20 09:00 Alprazolam (Xanax) 0.5 mg TID PO 09/12/20 09:00 09/21/20 17:40 DC 09/21/20 08:11 Buspirone HCl (Buspar) 7.5 mg TID PO 09/12/20 03:00 09/15/20 17:39 DC 09/15/20 13:07 Chlorpromazine HCl (Thorazine) 25 mg PRN BID PRN IV PSYCHOSIS 09/12/20 02:45 Melatonin (Melatonin) 9 mg QHS PO 09/12/20 21:00 09/21/20 20:29 Benztropine Mesylate (Cogentin) 2 mg BID PO 09/12/20 09:00 09/21/20 20:30 Insulin Human Lispro (HumaLOG) 0-9 UNITS TIDWMEALS SQ 09/12/20 08:00 09/19/20 17:43 Calcium Polycarbophil (Fibercon) 625 mg DAILY PO 09/12/20 09:00 09/21/20 08:11 Haloperidol Lactate (Haldol) 5 mg DAILY IM 09/13/20 11:00 09/16/20 18:26 DC 09/16/20 09:58 Lorazepam (Ativan Inj) 1 mg 1X ONCE IM 09/13/20 10:45 09/13/20 10:56 DC 09/13/20 11:08 Lorazepam (Ativan Inj) 1 mg DAILY IM 09/13/20 11:00 09/18/20 18:04 DC Divalproex Sodium (Depakote Er) 500 mg QHS PO 09/13/20 21:00 09/17/20 17:12 DC 09/16/20 20:50 Carbidopa/Levodopa (Sinemet 25/100) 1 tab DAILY08 PO 09/15/20 08:00 09/17/20 08:01 DC 09/17/20 08:18 Carbidopa/Levodopa (Sinemet 25/100) 2 tab 1400,2100 PO 09/15/20 14:00 09/17/20 21:01 DC 09/17/20 20:41 Carbidopa/Levodopa (Sinemet 25/100) 1 tab TID PO 09/21/20 09:00 09/21/20 20:32 Carbidopa/Levodopa (Sinemet 25/100) 1 tab 0900,1400 PO 09/18/20 09:00 09/20/20 14:01 DC 09/20/20 14:53 Carbidopa/Levodopa (Sinemet 25/100) 2 tab QHS PO 09/18/20 21:00 09/20/20 21:01 DC 09/20/20 20:59 Risperidone (RisperDAL) 2 mg QHS PO 09/14/20 21:00 09/16/20 18:26 DC 09/15/20 20:47 Risperidone (RisperDAL) 2.5 mg QHS PO 09/16/20 21:00 09/18/20 19:10 DC 09/17/20 20:41 Divalproex Sodium (Depakote Er) 750 mg QHS PO 09/17/20 21:00 09/21/20 20:31 Trazodone HCl (Desyrel) 100 mg PRN QHS PRN PO INSOMNIA 09/17/20 20:45 09/19/20 23:07 Trazodone HCl (Desyrel) 100 mg QHS PO 09/17/20 21:00 09/21/20 20:32 Risperidone (RisperDAL) 3.5 mg QHS PO 09/18/20 21:00 09/21/20 20:33 Alprazolam (Xanax) 0.5 mg BID PO 09/21/20 21:00 09/23/20 21:00 09/21/20 20:32 Alprazolam (Xanax) 0.5 mg DAILY PO 09/22/20 09:00 09/26/20 09:00 Current Medications Medications (Trade) Dose Ordered Sig/Moe Route PRN Reason Start Time Stop Time Status Last Admin Dose Admin Carbidopa/Levodopa (Sinemet 25/100) 1 tab TID PO 09/21/20 09:00 09/21/20 20:32 Alprazolam (Xanax) 0.5 mg BID PO 09/21/20 21:00 09/23/20 21:00 09/21/20 20:32 I have reviewed the current psychotropics carefully including drug interactions. Risk benefit ratio favors no change other than as noted in my dictated progress note. Diagnosis: Problems: (1) Schizoaffective disorder, bipolar type (2) Impulse control disorder, unspecified (3) Anxiety disorder, unspecified (4) Bipolar disorder, current episode manic, severe with psychotic features BRIGIDA WOMACK MD Sep 22, 2020 07:04
[2020-09-22] MEDS: INSULIN LISPRO 300 UNITS/3 ML VIAL. SQ SCH ×3 (08:00→16:46)
[2020-09-22] MEDS: CARBIDOPA/LEVODOPA 25/100MG TABLET PO SCH ×3 (08:50→20:10)
[2020-09-22] MEDS: CALCIUM POLYCARBOPHIL 625 MG TABLET PO SCH (08:50)
[2020-09-22] MEDS: MONTELUKAST 10 MG TABLET. PO SCH (08:50)
[2020-09-22] MEDS: FERROUS SULFATE 325 MG TABLET. PO SCH ×3 (08:50→16:33)
[2020-09-22] MEDS: POLYETHYLENE GLYCOL 3350 17 GM PACKET. PO SCH (08:50)
[2020-09-22] MEDS: ALPRAZolam 0.5 MG TABLET PO SCH ×2 (08:50→20:10)
[2020-09-22] MEDS: NICOTINE 21MG PATCH. TD SCH (08:50)
[2020-09-22] MEDS: LISINOPRIL 10 MG TABLET PO SCH (08:51)
[2020-09-22] MEDS: CARVEDILOL 12.5 MG TABLET PO SCH ×2 (08:51→16:34)
[2020-09-22] MEDS: BENZTROPINE MESYLATE 1 MG TABLET PO SCH ×2 (08:51→20:12)
[2020-09-22] MEDS: amLODIPine BESYLATE 10 MG TABLET PO SCH (08:51)
[2020-09-22] MEDS ORDERED: ALPRAZolam 0.5 MG TABLET PO SCH (09:00)
[2020-09-22 15:25] VITALS: BP 144/73
--- NOTE | 2020-09-22 18:46 | NUR ---
Patient alert and oriented good appetite in the dining room for all meals very helpful with other patients especially [place]de med compliant and cooperative with cares not as hyperverbal but social with others vitals stable and wnl of baseline no complaints of pain or discomfort patient slightly agitated someone had a bowel movement in his bathroom and got it all over the toilet advised I will have someone to clean it up. No new orders from Dr Wang or Dr Hartman, will continue to monitor patient.
[2020-09-22] MEDS: MELATONIN 3 MG TABLET PO SCH (20:11)
[2020-09-22] MEDS: DIVALPROEX ER 250 MG TAB.ER.24H. PO SCH (20:11)
[2020-09-22] MEDS: TAMSULOSIN 0.4 MG CAP.ER.24H. PO SCH (20:12)
[2020-09-22] MEDS: traZODone 100 MG TABLET. PO SCH (20:13)
[2020-09-22] MEDS: risperiDONE 1 MG TABLET. PO SCH (20:13)
[2020-09-22] MEDS: ATORVASTATIN CALCIUM 20 MG TABLET PO SCH (20:13)
--- NOTE | 2020-09-22 21:36 | NUR ---
Patient is located in the day room for assessments and medications. Pleasant demeanor, interactive and appropriate with this copywriter. Compliant with assessments and medications taken whole. No hyperverbal or paranoid behavior displayed so far this shift. No delusions/hallucinations voiced. Patient denies any pain or discomfort. Denies SI. He appears to be sleeping comfortably at present time. Will continue to monitor.
--- NOTE | 2020-09-22 22:02 | PDOC ---
Exam Note: Joel Note: Please also refer to the separate dictated note~for this date of service dictated separately.~Patient seen individually. Discussed the patient with Nursing staff reviewed the chart.~Reviewed interim history and current functioning. Reviewed vital signs,~Labs/ Radiology~and current medications noted below. Continue current treatment with the changes noted in the dictated addendum note Assessment: Vital Signs/I&O: Vital Signs Date Time Temp Pulse Resp B/P (MAP) Pulse Ox O2 Delivery O2 Flow Rate FiO2 09/22/20 16:34 84 144/73 09/22/20 15:25 97.6 20 100 Room Air I & O 09/21/20 09/21/20 09/22/20 14:59 22:59 06:59 Intake Total 965 ml 1080 ml Balance 965 ml 1080 ml Labs: Laboratory Tests Test 09/22/20 07:23 09/22/20 11:06 09/22/20 16:42 09/22/20 19:30 Glucose (Fingerstick) 113 mg/dL (70-99) H 142 mg/dL (70-99) H 129 mg/dL (70-99) H 125 mg/dL (70-99) H Current Medications: Meds: Laboratory Tests Test 09/22/20 07:23 09/22/20 11:06 09/22/20 16:42 09/22/20 19:30 Glucose (Fingerstick) 113 mg/dL 142 mg/dL 129 mg/dL 125 mg/dL Current Medications Medications (Trade) Dose Ordered Sig/Moe Route PRN Reason Start Time Stop Time Status Last Admin Dose Admin Acetaminophen (Tylenol) 650 mg PRN Q6HRS PRN PO MILD PAIN / TEMP > 100.3'F 09/12/20 01:00 09/17/20 00:35 Multi-Ingredient Ointment (Analgesic [place]) 1 miquel PRN QID PRN TP MUSCLE PAIN 09/12/20 01:00 Al Hydroxide/Mg Hydroxide (Mylanta Plus Xs) 15 ml PRN AFTMEALHC PRN PO DYSPEPSIA 09/12/20 01:00 Magnesium Hydroxide (Milk Of Magnesia) 2,400 mg PRN QHS PRN PO CONSTIPATION 09/12/20 01:00 09/20/20 06:25 Nicotine (Nicoderm Cq 21mg Patch) 1 patch DAILY TD 09/12/20 09:00 6/12/21 08:50 Alprazolam (Xanax) 0.5 mg TID PO 09/12/20 02:00 09/12/20 02:50 DC 09/12/20 02:01 Olanzapine (ZyPREXA) 5 mg HS PO 09/12/20 02:00 09/14/20 17:48 DC 09/13/20 20:20 Trazodone HCl (Desyrel) 100 mg HS PO 09/12/20 02:00 09/17/20 20:50 DC 09/17/20 00:06 Benztropine Mesylate (Cogentin) 2 mg BID PO 09/12/20 02:00 09/12/20 02:51 DC 09/12/20 02:01 Melatonin (Melatonin) 9 mg HS PO 09/12/20 02:00 09/12/20 02:51 DC 09/12/20 02:01 Quetiapine Fumarate (SEROquel) 200 mg HS PO 09/12/20 02:00 09/15/20 17:39 DC 09/14/20 20:31 Amlodipine Besylate (Norvasc) 10 mg DAILY PO 09/12/20 09:00 09/22/20 08:51 Calcium Polycarbophil (Fibercon) 625 mg DAILY PO 09/12/20 09:00 09/12/20 09:12 DC Carbidopa/Levodopa (Sinemet 25/100) 2 tab TID PO 09/12/20 09:00 09/14/20 22:00 DC 09/14/20 20:29 Cetirizine HCl (ZyrTEC) 10 mg PRN DAILY PRN PO ALLERGIES 09/12/20 02:30 Ferrous Sulfate (Feosol) 325 mg TIDWMEALS PO 09/12/20 08:00 09/22/20 16:33 Montelukast Sodium (Singulair) 10 mg DAILY PO 09/12/20 09:00 09/22/20 08:50 Artificial Tears (Artificial Tears) 1 drop PRN QID PRN OU DRY EYE 09/12/20 02:30 Tamsulosin HCl (Flomax) 0.4 mg HS PO 09/12/20 21:00 09/22/20 20:12 Lisinopril (Prinivil) 30 mg DAILY PO 09/12/20 09:00 09/22/20 08:51 Non-Formulary Medication (Loratadine ) 10 mg DAILY PO 09/12/20 09:00 09/12/20 02:37 DC Polyethylene Glycol (miraLAX) 17 gm DAILY PO 09/12/20 09:00 09/22/20 08:50 Non-Formulary Medication ([Diphen/Maalox/ Lido] ) 5 ml QID PRN PO Abdominal Pain 09/12/20 02:30 UNV Atorvastatin Calcium (Lipitor) 40 mg QHS PO 09/12/20 21:00 09/22/20 20:13 Carvedilol (Coreg) 25 mg BIDWMEALS PO 09/12/20 08:00 09/22/20 16:34 Simethicone (Gas-X) 80 mg PRN BID PRN PO GAS / BLOATING 09/12/20 02:45 Multi-Ingredient Mouthwash/Gargle (Magic Mouthwash) 10 ml PRN QID PRN PO MOUTH PAIN 09/12/20 09:00 Alprazolam (Xanax) 0.5 mg TID PO 09/12/20 09:00 09/21/20 17:40 DC 09/21/20 08:11 Buspirone HCl (Buspar) 7.5 mg TID PO 09/12/20 03:00 09/15/20 17:39 DC 09/15/20 13:07 Chlorpromazine HCl (Thorazine) 25 mg PRN BID PRN IV PSYCHOSIS 09/12/20 02:45 Melatonin (Melatonin) 9 mg QHS PO 09/12/20 21:00 09/22/20 20:11 Benztropine Mesylate (Cogentin) 2 mg BID PO 09/12/20 09:00 09/22/20 20:12 Insulin Human Lispro (HumaLOG) 0-9 UNITS TIDWMEALS SQ 09/12/20 08:00 09/19/20 17:43 Calcium Polycarbophil (Fibercon) 625 mg DAILY PO 09/12/20 09:00 09/22/20 08:50 Haloperidol Lactate (Haldol) 5 mg DAILY IM 09/13/20 11:00 09/16/20 18:26 DC 09/16/20 09:58 Lorazepam (Ativan Inj) 1 mg 1X ONCE IM 09/13/20 10:45 09/13/20 10:56 DC 09/13/20 11:08 Lorazepam (Ativan Inj) 1 mg DAILY IM 09/13/20 11:00 09/18/20 18:04 DC Divalproex Sodium (Depakote Er) 500 mg QHS PO 09/13/20 21:00 09/17/20 17:12 DC 09/16/20 20:50 Carbidopa/Levodopa (Sinemet 25/100) 1 tab DAILY08 PO 09/15/20 08:00 09/17/20 08:01 DC 09/17/20 08:18 Carbidopa/Levodopa (Sinemet 25/100) 2 tab 1400,2100 PO 09/15/20 14:00 09/17/20 21:01 DC 09/17/20 20:41 Carbidopa/Levodopa (Sinemet 25/100) 1 tab TID PO 09/21/20 09:00 09/22/20 20:10 Carbidopa/Levodopa (Sinemet 25/100) 1 tab 0900,1400 PO 09/18/20 09:00 09/20/20 14:01 DC 09/20/20 14:53 Carbidopa/Levodopa (Sinemet 25/100) 2 tab QHS PO 09/18/20 21:00 09/20/20 21:01 DC 09/20/20 20:59 Risperidone (RisperDAL) 2 mg QHS PO 09/14/20 21:00 09/16/20 18:26 DC 09/15/20 20:47 Risperidone (RisperDAL) 2.5 mg QHS PO 09/16/20 21:00 09/18/20 19:10 DC 09/17/20 20:41 Divalproex Sodium (Depakote Er) 750 mg QHS PO 09/17/20 21:00 09/22/20 20:11 Trazodone HCl (Desyrel) 100 mg PRN QHS PRN PO INSOMNIA 09/17/20 20:45 09/19/20 23:07 Trazodone HCl (Desyrel) 100 mg QHS PO 09/17/20 21:00 09/22/20 20:13 Risperidone (RisperDAL) 3.5 mg QHS PO 09/18/20 21:00 09/22/20 19:35 DC 09/21/20 20:33 Alprazolam (Xanax) 0.5 mg BID PO 09/21/20 21:00 09/22/20 19:35 DC 09/22/20 08:50 Alprazolam (Xanax) 0.5 mg DAILY PO 09/22/20 09:00 09/22/20 07:57 DC Alprazolam (Xanax) 0.5 mg DAILY PO 09/24/20 09:00 09/22/20 19:35 DC Alprazolam (Xanax) 0.5 mg TID PO 09/22/20 21:00 09/22/20 20:10 Risperidone (RisperDAL) 4 mg QHS PO 09/22/20 21:00 09/22/20 20:13 Current Medications Medications (Trade) Dose Ordered Sig/Moe Route PRN Reason Start Time Stop Time Status Last Admin Dose Admin Alprazolam (Xanax) 0.5 mg TID PO 09/22/20 21:00 09/22/20 20:10 Risperidone (RisperDAL) 4 mg QHS PO 09/22/20 21:00 09/22/20 20:13 I have reviewed the current psychotropics carefully including drug interactions. Risk benefit ratio favors no change other than as noted in my dictated progress note. Diagnosis: Problems: (1) Schizoaffective disorder, bipolar type (2) Impulse control disorder, unspecified (3) Anxiety disorder, unspecified (4) Bipolar disorder, current episode manic, severe with psychotic features BRIGIDA WOMACK MD Sep 22, 2020 22:02
[2020-09-23 06:11] VITALS: BP 131/80
[2020-09-23] MEDS: INSULIN LISPRO 300 UNITS/3 ML VIAL. SQ SCH ×3 (08:00→16:35)
[2020-09-23] MEDS: NICOTINE 21MG PATCH. TD SCH (08:51)
[2020-09-23] MEDS: FERROUS SULFATE 325 MG TABLET. PO SCH ×3 (08:51→16:40)
[2020-09-23] MEDS: CALCIUM POLYCARBOPHIL 625 MG TABLET PO SCH (08:52)
[2020-09-23] MEDS: MONTELUKAST 10 MG TABLET. PO SCH (08:52)
[2020-09-23] MEDS: CARBIDOPA/LEVODOPA 25/100MG TABLET PO SCH ×3 (08:52→20:55)
[2020-09-23] MEDS: CARVEDILOL 12.5 MG TABLET PO SCH ×2 (08:52→16:41)
[2020-09-23] MEDS: BENZTROPINE MESYLATE 1 MG TABLET PO SCH ×2 (08:52→20:55)
[2020-09-23] MEDS: amLODIPine BESYLATE 10 MG TABLET PO SCH (08:52)
[2020-09-23] MEDS: ALPRAZolam 0.5 MG TABLET PO SCH ×3 (08:52→20:55)
[2020-09-23] MEDS: LISINOPRIL 10 MG TABLET PO SCH (08:53)
[2020-09-23] MEDS: POLYETHYLENE GLYCOL 3350 17 GM PACKET. PO SCH (08:56)
--- NOTE | 2020-09-23 10:28 | NUR ---
Pt is cooperative and appropriate this shift. He is compliant with medications taken whole. He is able to make his needs known to staff and verbalizes no complaints/concerns. Pt is A&Ox4, absent of SI/HI/VH/AH/delusions/pain. His friendship with another patient continues and appears appropriate. Pt has had a shower today and has agreed to change out of his personal clothes into clothing provided by the unit. Plan of care continues, will pass to next shift.
[2020-09-23 15:45] VITALS: BP 129/77
[2020-09-23] MEDS: risperiDONE 1 MG TABLET. PO SCH (20:54)
[2020-09-23] MEDS: DIVALPROEX ER 250 MG TAB.ER.24H. PO SCH (20:55)
[2020-09-23] MEDS: MELATONIN 3 MG TABLET PO SCH (20:55)
[2020-09-23] MEDS: TAMSULOSIN 0.4 MG CAP.ER.24H. PO SCH (20:55)
[2020-09-23] MEDS: traZODone 100 MG TABLET. PO SCH (20:55)
[2020-09-23] MEDS: ATORVASTATIN CALCIUM 20 MG TABLET PO SCH (20:55)
--- NOTE | 2020-09-23 22:07 | PDOC ---
Exam Note: Joel Note: Please also refer to the separate dictated note~for this date of service dictated separately.~Patient seen individually. Discussed the patient with Nursing staff reviewed the chart.~Reviewed interim history and current functioning. Reviewed vital signs,~Labs/ Radiology~and current medications noted below. Continue current treatment with the changes noted in the dictated addendum note Assessment: Vital Signs/I&O: Vital Signs Date Time Temp Pulse Resp B/P (MAP) Pulse Ox O2 Delivery O2 Flow Rate FiO2 09/23/20 16:41 61 129/77 09/23/20 15:45 97.8 20 98 09/23/20 06:11 Room Air I & O 09/22/20 09/22/20 09/23/20 15:00 23:00 07:00 Intake Total 940 ml 840 ml Balance 940 ml 840 ml Labs: Laboratory Tests Test 09/23/20 07:50 09/23/20 11:21 09/23/20 16:08 09/23/20 19:04 Glucose (Fingerstick) 136 mg/dL (70-99) H 107 mg/dL (70-99) H 88 mg/dL (70-99) 211 mg/dL (70-99) H Current Medications: Meds: Laboratory Tests Test 09/23/20 07:50 09/23/20 11:21 09/23/20 16:08 09/23/20 19:04 Glucose (Fingerstick) 136 mg/dL 107 mg/dL 88 mg/dL 211 mg/dL Current Medications Medications (Trade) Dose Ordered Sig/Moe Route PRN Reason Start Time Stop Time Status Last Admin Dose Admin Acetaminophen (Tylenol) 650 mg PRN Q6HRS PRN PO MILD PAIN / TEMP > 100.3'F 09/12/20 01:00 09/17/20 00:35 Multi-Ingredient Ointment (Analgesic [place]) 1 miquel PRN QID PRN TP MUSCLE PAIN 09/12/20 01:00 Al Hydroxide/Mg Hydroxide (Mylanta Plus Xs) 15 ml PRN AFTMEALHC PRN PO DYSPEPSIA 09/12/20 01:00 Magnesium Hydroxide (Milk Of Magnesia) 2,400 mg PRN QHS PRN PO CONSTIPATION 09/12/20 01:00 09/20/20 06:25 Nicotine (Nicoderm Cq 21mg Patch) 1 patch DAILY TD 09/12/20 09:00 09/23/20 08:51 Alprazolam (Xanax) 0.5 mg TID PO 09/12/20 02:00 09/12/20 02:50 DC 09/12/20 02:01 Olanzapine (ZyPREXA) 5 mg HS PO 09/12/20 02:00 09/14/20 17:48 DC 09/13/20 20:20 Trazodone HCl (Desyrel) 100 mg HS PO 09/12/20 02:00 09/17/20 20:50 DC 09/17/20 00:06 Benztropine Mesylate (Cogentin) 2 mg BID PO 09/12/20 02:00 09/12/20 02:51 DC 09/12/20 02:01 Melatonin (Melatonin) 9 mg HS PO 09/12/20 02:00 09/12/20 02:51 DC 09/12/20 02:01 Quetiapine Fumarate (SEROquel) 200 mg HS PO 09/12/20 02:00 09/15/20 17:39 DC 09/14/20 20:31 Amlodipine Besylate (Norvasc) 10 mg DAILY PO 09/12/20 09:00 09/23/20 08:52 Calcium Polycarbophil (Fibercon) 625 mg DAILY PO 09/12/20 09:00 09/12/20 09:12 DC Carbidopa/Levodopa (Sinemet 25/100) 2 tab TID PO 09/12/20 09:00 09/14/20 22:00 DC 09/14/20 20:29 Cetirizine HCl (ZyrTEC) 10 mg PRN DAILY PRN PO ALLERGIES 09/12/20 02:30 Ferrous Sulfate (Feosol) 325 mg TIDWMEALS PO 09/12/20 08:00 09/23/20 16:40 Montelukast Sodium (Singulair) 10 mg DAILY PO 09/12/20 09:00 09/23/20 08:52 Artificial Tears (Artificial Tears) 1 drop PRN QID PRN OU DRY EYE 09/12/20 02:30 Tamsulosin HCl (Flomax) 0.4 mg HS PO 09/12/20 21:00 09/23/20 20:55 Lisinopril (Prinivil) 30 mg DAILY PO 09/12/20 09:00 09/23/20 08:53 Non-Formulary Medication (Loratadine ) 10 mg DAILY PO 09/12/20 09:00 09/12/20 02:37 DC Polyethylene Glycol (miraLAX) 17 gm DAILY PO 09/12/20 09:00 09/22/20 08:50 Non-Formulary Medication ([Diphen/Maalox/ Lido] ) 5 ml QID PRN PO Abdominal Pain 09/12/20 02:30 UNV Atorvastatin Calcium (Lipitor) 40 mg QHS PO 09/12/20 21:00 09/23/20 20:55 Carvedilol (Coreg) 25 mg BIDWMEALS PO 09/12/20 08:00 09/23/20 16:41 Simethicone (Gas-X) 80 mg PRN BID PRN PO GAS / BLOATING 09/12/20 02:45 Multi-Ingredient Mouthwash/Gargle (Magic Mouthwash) 10 ml PRN QID PRN PO MOUTH PAIN 09/12/20 09:00 Alprazolam (Xanax) 0.5 mg TID PO 09/12/20 09:00 09/21/20 17:40 DC 09/21/20 08:11 Buspirone HCl (Buspar) 7.5 mg TID PO 09/12/20 03:00 09/15/20 17:39 DC 09/15/20 13:07 Chlorpromazine HCl (Thorazine) 25 mg PRN BID PRN IV PSYCHOSIS 09/12/20 02:45 Melatonin (Melatonin) 9 mg QHS PO 09/12/20 21:00 09/23/20 20:55 Benztropine Mesylate (Cogentin) 2 mg BID PO 09/12/20 09:00 09/23/20 20:55 Insulin Human Lispro (HumaLOG) 0-9 UNITS TIDWMEALS SQ 09/12/20 08:00 09/19/20 17:43 Calcium Polycarbophil (Fibercon) 625 mg DAILY PO 09/12/20 09:00 09/23/20 08:52 Haloperidol Lactate (Haldol) 5 mg DAILY IM 09/13/20 11:00 09/16/20 18:26 DC 09/16/20 09:58 Lorazepam (Ativan Inj) 1 mg 1X ONCE IM 09/13/20 10:45 09/13/20 10:56 DC 09/13/20 11:08 Lorazepam (Ativan Inj) 1 mg DAILY IM 09/13/20 11:00 09/18/20 18:04 DC Divalproex Sodium (Depakote Er) 500 mg QHS PO 09/13/20 21:00 09/17/20 17:12 DC 09/16/20 20:50 Carbidopa/Levodopa (Sinemet 25/100) 1 tab DAILY08 PO 09/15/20 08:00 09/17/20 08:01 DC 09/17/20 08:18 Carbidopa/Levodopa (Sinemet 25/100) 2 tab 1400,2100 PO 09/15/20 14:00 09/17/20 21:01 DC 09/17/20 20:41 Carbidopa/Levodopa (Sinemet 25/100) 1 tab TID PO 09/21/20 09:00 09/23/20 20:55 Carbidopa/Levodopa (Sinemet 25/100) 1 tab 0900,1400 PO 09/18/20 09:00 09/20/20 14:01 DC 09/20/20 14:53 Carbidopa/Levodopa (Sinemet 25/100) 2 tab QHS PO 09/18/20 21:00 09/20/20 21:01 DC 09/20/20 20:59 Risperidone (RisperDAL) 2 mg QHS PO 09/14/20 21:00 09/16/20 18:26 DC 09/15/20 20:47 Risperidone (RisperDAL) 2.5 mg QHS PO 09/16/20 21:00 09/18/20 19:10 DC 09/17/20 20:41 Divalproex Sodium (Depakote Er) 750 mg QHS PO 09/17/20 21:00 09/23/20 20:55 Trazodone HCl (Desyrel) 100 mg PRN QHS PRN PO INSOMNIA 09/17/20 20:45 09/19/20 23:07 Trazodone HCl (Desyrel) 100 mg QHS PO 09/17/20 21:00 09/23/20 20:55 Risperidone (RisperDAL) 3.5 mg QHS PO 09/18/20 21:00 09/22/20 19:35 DC 09/21/20 20:33 Alprazolam (Xanax) 0.5 mg BID PO 09/21/20 21:00 09/22/20 19:35 DC 09/22/20 08:50 Alprazolam (Xanax) 0.5 mg DAILY PO 09/22/20 09:00 09/22/20 07:57 DC Alprazolam (Xanax) 0.5 mg DAILY PO 09/24/20 09:00 09/22/20 19:35 DC Alprazolam (Xanax) 0.5 mg TID PO 09/22/20 21:00 09/23/20 20:55 Risperidone (RisperDAL) 4 mg QHS PO 09/22/20 21:00 09/23/20 20:54 I have reviewed the current psychotropics carefully including drug interactions. Risk benefit ratio favors no change other than as noted in my dictated progress note. Diagnosis: Problems: (1) Schizoaffective disorder, bipolar type (2) Impulse control disorder, unspecified (3) Anxiety disorder, unspecified (4) Bipolar disorder, current episode manic, severe with psychotic features BRIGIDA WOMACK MD Sep 23, 2020 22:07
--- NOTE | 2020-09-23 22:34 | NUR ---
Patient was sitting in the day room at the beginning of the shift watching a game show with peers. He then went to his room where he reported that he was hot. Thermostat read 79.5 f. Thermostat was turned down per patient request. Patient cooperative, appropriate and compliant with medications. He asks pertinent questions about his medications and is interested in the plan of care. No adverse behaviors noted at this time.
[2020-09-24 06:00] VITALS: BP 115/79
--- NOTE | 2020-09-24 06:17 | NUR ---
Patient stated that he is having black stools and would like to skip his iron today to see if that is the cause. Will pass on in report.
[2020-09-24] MEDS: FERROUS SULFATE 325 MG TABLET. PO SCH ×3 (06:28→11:43)
[2020-09-24] MEDS: INSULIN LISPRO 300 UNITS/3 ML VIAL. SQ SCH ×3 (07:31→16:57)
[2020-09-24] MEDS: NICOTINE 21MG PATCH. TD SCH (08:07)
[2020-09-24] MEDS: CALCIUM POLYCARBOPHIL 625 MG TABLET PO SCH (08:08)
[2020-09-24] MEDS: MONTELUKAST 10 MG TABLET. PO SCH (08:08)
[2020-09-24] MEDS: ALPRAZolam 0.5 MG TABLET PO SCH ×3 (08:09→21:03)
[2020-09-24] MEDS: LISINOPRIL 10 MG TABLET PO SCH (08:09)
[2020-09-24] MEDS: amLODIPine BESYLATE 10 MG TABLET PO SCH (08:09)
[2020-09-24] MEDS: BENZTROPINE MESYLATE 1 MG TABLET PO SCH ×2 (08:09→21:03)
[2020-09-24] MEDS: CARBIDOPA/LEVODOPA 25/100MG TABLET PO SCH ×3 (08:09→21:04)
[2020-09-24] MEDS: CARVEDILOL 12.5 MG TABLET PO SCH ×2 (08:10→17:28)
[2020-09-24] MEDS: POLYETHYLENE GLYCOL 3350 17 GM PACKET. PO SCH (08:12)
--- NOTE | 2020-09-24 08:55 | PDOC ---
Exam Note: Joel Note: This note is a late entry for 09/22/2020 covers elements not covered in my initial note. Subjective: The patient was seen individually in the evening of 09/22/2020 with Faraz ROONEY, discussed and reviewed the chart. The patient slept 4-1/4 hours previous night. Per nursing report he has done well but this evening of 09/22 when I met with him, he was quite defensive, anxious, paranoid stated he had 40,000 complaints. Where should I start? He was complaining of activities on the unit and how the staff is treating the other patients. I addressed this at length. Review of Systems: No CV, , pulmonary, eye, ENT system symptoms on review. Mental Status Exam: The patient is reasonably oriented. Speech coherent. Abstraction fair. Computation impaired. Language function intact. Mood and affect somewhat labile, anxious. Laboratory Data: Reviewed. Impression: Bipolar disorder mixed with psychotic features. Anxiety disorder unspecified. Impulse control disorder unspecified. Schizoaffective disorder, bipolar type, manic with psychotic features. Plan: No change from initial note. Assessment: Vital Signs/I&O: Vital Signs Date Time Temp Pulse Resp B/P (MAP) Pulse Ox O2 Delivery O2 Flow Rate FiO2 09/24/20 08:10 84 115/79 09/24/20 06:00 96.8 18 97 Room Air I & O 09/23/20 09/23/20 09/24/20 15:00 23:00 07:00 Intake Total 1020 ml 600 ml Balance 1020 ml 600 ml Labs: Laboratory Tests Test 09/23/20 11:21 09/23/20 16:08 09/23/20 19:04 09/24/20 07:28 Glucose (Fingerstick) 107 mg/dL (70-99) H 88 mg/dL (70-99) 211 mg/dL (70-99) H 127 mg/dL (70-99) H Current Medications: Meds: Laboratory Tests Test 09/23/20 11:21 09/23/20 16:08 09/23/20 19:04 09/24/20 07:28 Glucose (Fingerstick) 107 mg/dL 88 mg/dL 211 mg/dL 127 mg/dL Current Medications Medications (Trade) Dose Ordered Sig/Moe Route PRN Reason Start Time Stop Time Status Last Admin Dose Admin Acetaminophen (Tylenol) 650 mg PRN Q6HRS PRN PO MILD PAIN / TEMP > 100.3'F 09/12/20 01:00 09/17/20 00:35 Multi-Ingredient Ointment (Analgesic [place]) 1 miquel PRN QID PRN TP MUSCLE PAIN 09/12/20 01:00 Al Hydroxide/Mg Hydroxide (Mylanta Plus Xs) 15 ml PRN AFTMEALHC PRN PO DYSPEPSIA 09/12/20 01:00 Magnesium Hydroxide (Milk Of Magnesia) 2,400 mg PRN QHS PRN PO CONSTIPATION 09/12/20 01:00 09/20/20 06:25 Nicotine (Nicoderm Cq 21mg Patch) 1 patch DAILY TD 09/12/20 09:00 09/24/20 08:07 Alprazolam (Xanax) 0.5 mg TID PO 09/12/20 02:00 09/12/20 02:50 DC 09/12/20 02:01 Olanzapine (ZyPREXA) 5 mg HS PO 09/12/20 02:00 09/14/20 17:48 DC 09/13/20 20:20 Trazodone HCl (Desyrel) 100 mg HS PO 09/12/20 02:00 09/17/20 20:50 DC 09/17/20 00:06 Benztropine Mesylate (Cogentin) 2 mg BID PO 09/12/20 02:00 09/12/20 02:51 DC 09/12/20 02:01 Melatonin (Melatonin) 9 mg HS PO 09/12/20 02:00 09/12/20 02:51 DC 09/12/20 02:01 Quetiapine Fumarate (SEROquel) 200 mg HS PO 09/12/20 02:00 09/15/20 17:39 DC 09/14/20 20:31 Amlodipine Besylate (Norvasc) 10 mg DAILY PO 09/12/20 09:00 09/24/20 08:09 Calcium Polycarbophil (Fibercon) 625 mg DAILY PO 09/12/20 09:00 09/12/20 09:12 DC Carbidopa/Levodopa (Sinemet 25/100) 2 tab TID PO 09/12/20 09:00 09/14/20 22:00 DC 09/14/20 20:29 Cetirizine HCl (ZyrTEC) 10 mg PRN DAILY PRN PO ALLERGIES 09/12/20 02:30 Ferrous Sulfate (Feosol) 325 mg TIDWMEALS PO 09/12/20 08:00 09/23/20 16:40 Montelukast Sodium (Singulair) 10 mg DAILY PO 09/12/20 09:00 09/24/20 08:08 Artificial Tears (Artificial Tears) 1 drop PRN QID PRN OU DRY EYE 09/12/20 02:30 Tamsulosin HCl (Flomax) 0.4 mg HS PO 09/12/20 21:00 09/23/20 20:55 Lisinopril (Prinivil) 30 mg DAILY PO 09/12/20 09:00 09/24/20 08:09 Non-Formulary Medication (Loratadine ) 10 mg DAILY PO 09/12/20 09:00 09/12/20 02:37 DC Polyethylene Glycol (miraLAX) 17 gm DAILY PO 09/12/20 09:00 09/22/20 08:50 Non-Formulary Medication ([Diphen/Maalox/ Lido] ) 5 ml QID PRN PO Abdominal Pain 09/12/20 02:30 UNV Atorvastatin Calcium (Lipitor) 40 mg QHS PO 09/12/20 21:00 09/23/20 20:55 Carvedilol (Coreg) 25 mg BIDWMEALS PO 09/12/20 08:00 09/24/20 08:10 Simethicone (Gas-X) 80 mg PRN BID PRN PO GAS / BLOATING 09/12/20 02:45 Multi-Ingredient Mouthwash/Gargle (Magic Mouthwash) 10 ml PRN QID PRN PO MOUTH PAIN 09/12/20 09:00 Alprazolam (Xanax) 0.5 mg TID PO 09/12/20 09:00 09/21/20 17:40 DC 09/21/20 08:11 Buspirone HCl (Buspar) 7.5 mg TID PO 09/12/20 03:00 09/15/20 17:39 DC 09/15/20 13:07 Chlorpromazine HCl (Thorazine) 25 mg PRN BID PRN IV PSYCHOSIS 09/12/20 02:45 Melatonin (Melatonin) 9 mg QHS PO 09/12/20 21:00 09/23/20 20:55 Benztropine Mesylate (Cogentin) 2 mg BID PO 09/12/20 09:00 09/24/20 08:09 Insulin Human Lispro (HumaLOG) 0-9 UNITS TIDWMEALS SQ 09/12/20 08:00 09/19/20 17:43 Calcium Polycarbophil (Fibercon) 625 mg DAILY PO 09/12/20 09:00 09/24/20 08:08 Haloperidol Lactate (Haldol) 5 mg DAILY IM 09/13/20 11:00 09/16/20 18:26 DC 09/16/20 09:58 Lorazepam (Ativan Inj) 1 mg 1X ONCE IM 09/13/20 10:45 09/13/20 10:56 DC 09/13/20 11:08 Lorazepam (Ativan Inj) 1 mg DAILY IM 09/13/20 11:00 09/18/20 18:04 DC Divalproex Sodium (Depakote Er) 500 mg QHS PO 09/13/20 21:00 09/17/20 17:12 DC 09/16/20 20:50 Carbidopa/Levodopa (Sinemet 25/100) 1 tab DAILY08 PO 09/15/20 08:00 09/17/20 08:01 DC 09/17/20 08:18 Carbidopa/Levodopa (Sinemet 25/100) 2 tab 1400,2100 PO 09/15/20 14:00 09/17/20 21:01 DC 09/17/20 20:41 Carbidopa/Levodopa (Sinemet 25/100) 1 tab TID PO 09/21/20 09:00 09/24/20 08:09 Carbidopa/Levodopa (Sinemet 25/100) 1 tab 0900,1400 PO 09/18/20 09:00 09/20/20 14:01 DC 09/20/20 14:53 Carbidopa/Levodopa (Sinemet 25/100) 2 tab QHS PO 09/18/20 21:00 09/20/20 21:01 DC 09/20/20 20:59 Risperidone (RisperDAL) 2 mg QHS PO 09/14/20 21:00 09/16/20 18:26 DC 09/15/20 20:47 Risperidone (RisperDAL) 2.5 mg QHS PO 09/16/20 21:00 09/18/20 19:10 DC 09/17/20 20:41 Divalproex Sodium (Depakote Er) 750 mg QHS PO 09/17/20 21:00 09/23/20 20:55 Trazodone HCl (Desyrel) 100 mg PRN QHS PRN PO INSOMNIA 09/17/20 20:45 09/19/20 23:07 Trazodone HCl (Desyrel) 100 mg QHS PO 09/17/20 21:00 09/23/20 20:55 Risperidone (RisperDAL) 3.5 mg QHS PO 09/18/20 21:00 09/22/20 19:35 DC 09/21/20 20:33 Alprazolam (Xanax) 0.5 mg BID PO 09/21/20 21:00 09/22/20 19:35 DC 09/22/20 08:50 Alprazolam (Xanax) 0.5 mg DAILY PO 09/22/20 09:00 09/22/20 07:57 DC Alprazolam (Xanax) 0.5 mg DAILY PO 09/24/20 09:00 09/22/20 19:35 DC Alprazolam (Xanax) 0.5 mg TID PO 09/22/20 21:00 09/24/20 08:09 Risperidone (RisperDAL) 4 mg QHS PO 09/22/20 21:00 09/23/20 20:54 I have reviewed the current psychotropics carefully including drug interactions. Risk benefit ratio favors no change other than as noted in my dictated progress note. Diagnosis: Problems: (1) Schizoaffective disorder, bipolar type (2) Impulse control disorder, unspecified (3) Anxiety disorder, unspecified (4) Bipolar disorder, current episode manic, severe with psychotic features BRIGIDA WOMACK MD Sep 24, 2020 08:55
[2020-09-24] MEDS ORDERED: ALPRAZolam 0.5 MG TABLET PO SCH (09:00)
--- NOTE | 2020-09-24 09:20 | PDOC ---
Exam Note: Joel Note: This note is a late entry for 09/23/2020 covers elements not covered in my initial note. Subjective: The patient was seen individually in the evening of 09/23/2020 with Annmarie ROONEY, discussed and reviewed the chart. The patient slept 4-3/4 hours previous night. However when I questioned the patient on his sleep he stated he slept 8-1/2 hours. He is pleasant though he was intrusive last evening at times. He is an alcoholic with 20 years and pulls out his AA manual to secondary situations on the unit. He received no trazodone last night according to him. Review of Systems: No CV, , pulmonary, eye, ENT system symptoms on review. Mental Status Exam: The patient is reasonably oriented. Speech coherent. Abstraction fair. Computation impaired. Language function intact. Mood and affect remains labile, anxious. Laboratory Data: Reviewed. Impression: Bipolar disorder mixed with psychotic features. Anxiety disorder unspecified. Impulse control disorder unspecified. Schizoaffective disorder, bipolar type, manic with psychotic features. Plan: No change from initial note. Increase Risperdal to 0.75 mg p.o. h.s. Reinstate the Xanax as he states he is feeling much worse as we taper it. Assessment: Vital Signs/I&O: Vital Signs Date Time Temp Pulse Resp B/P (MAP) Pulse Ox O2 Delivery O2 Flow Rate FiO2 09/24/20 08:10 84 115/79 09/24/20 06:00 96.8 18 97 Room Air I & O 09/23/20 09/23/20 09/24/20 15:00 23:00 07:00 Intake Total 1020 ml 600 ml Balance 1020 ml 600 ml Labs: Laboratory Tests Test 09/23/20 11:21 09/23/20 16:08 09/23/20 19:04 09/24/20 07:28 Glucose (Fingerstick) 107 mg/dL (70-99) H 88 mg/dL (70-99) 211 mg/dL (70-99) H 127 mg/dL (70-99) H Current Medications: Meds: Laboratory Tests Test 09/23/20 11:21 09/23/20 16:08 09/23/20 19:04 09/24/20 07:28 Glucose (Fingerstick) 107 mg/dL 88 mg/dL 211 mg/dL 127 mg/dL Current Medications Medications (Trade) Dose Ordered Sig/Moe Route PRN Reason Start Time Stop Time Status Last Admin Dose Admin Acetaminophen (Tylenol) 650 mg PRN Q6HRS PRN PO MILD PAIN / TEMP > 100.3'F 09/12/20 01:00 09/17/20 00:35 Multi-Ingredient Ointment (Analgesic [place]) 1 miquel PRN QID PRN TP MUSCLE PAIN 09/12/20 01:00 Al Hydroxide/Mg Hydroxide (Mylanta Plus Xs) 15 ml PRN AFTMEALHC PRN PO DYSPEPSIA 09/12/20 01:00 Magnesium Hydroxide (Milk Of Magnesia) 2,400 mg PRN QHS PRN PO CONSTIPATION 09/12/20 01:00 09/20/20 06:25 Nicotine (Nicoderm Cq 21mg Patch) 1 patch DAILY TD 09/12/20 09:00 09/24/20 08:07 Alprazolam (Xanax) 0.5 mg TID PO 09/12/20 02:00 09/12/20 02:50 DC 09/12/20 02:01 Olanzapine (ZyPREXA) 5 mg HS PO 09/12/20 02:00 09/14/20 17:48 DC 09/13/20 20:20 Trazodone HCl (Desyrel) 100 mg HS PO 09/12/20 02:00 09/17/20 20:50 DC 09/17/20 00:06 Benztropine Mesylate (Cogentin) 2 mg BID PO 09/12/20 02:00 09/12/20 02:51 DC 09/12/20 02:01 Melatonin (Melatonin) 9 mg HS PO 09/12/20 02:00 09/12/20 02:51 DC 09/12/20 02:01 Quetiapine Fumarate (SEROquel) 200 mg HS PO 09/12/20 02:00 09/15/20 17:39 DC 09/14/20 20:31 Amlodipine Besylate (Norvasc) 10 mg DAILY PO 09/12/20 09:00 09/24/20 08:09 Calcium Polycarbophil (Fibercon) 625 mg DAILY PO 09/12/20 09:00 09/12/20 09:12 DC Carbidopa/Levodopa (Sinemet 25/100) 2 tab TID PO 09/12/20 09:00 09/14/20 22:00 DC 09/14/20 20:29 Cetirizine HCl (ZyrTEC) 10 mg PRN DAILY PRN PO ALLERGIES 09/12/20 02:30 Ferrous Sulfate (Feosol) 325 mg TIDWMEALS PO 09/12/20 08:00 09/23/20 16:40 Montelukast Sodium (Singulair) 10 mg DAILY PO 09/12/20 09:00 09/24/20 08:08 Artificial Tears (Artificial Tears) 1 drop PRN QID PRN OU DRY EYE 09/12/20 02:30 Tamsulosin HCl (Flomax) 0.4 mg HS PO 09/12/20 21:00 09/23/20 20:55 Lisinopril (Prinivil) 30 mg DAILY PO 09/12/20 09:00 09/24/20 08:09 Non-Formulary Medication (Loratadine ) 10 mg DAILY PO 09/12/20 09:00 09/12/20 02:37 DC Polyethylene Glycol (miraLAX) 17 gm DAILY PO 09/12/20 09:00 09/22/20 08:50 Non-Formulary Medication ([Diphen/Maalox/ Lido] ) 5 ml QID PRN PO Abdominal Pain 09/12/20 02:30 UNV Atorvastatin Calcium (Lipitor) 40 mg QHS PO 09/12/20 21:00 09/23/20 20:55 Carvedilol (Coreg) 25 mg BIDWMEALS PO 09/12/20 08:00 09/24/20 08:10 Simethicone (Gas-X) 80 mg PRN BID PRN PO GAS / BLOATING 09/12/20 02:45 Multi-Ingredient Mouthwash/Gargle (Magic Mouthwash) 10 ml PRN QID PRN PO MOUTH PAIN 09/12/20 09:00 Alprazolam (Xanax) 0.5 mg TID PO 09/12/20 09:00 09/21/20 17:40 DC 09/21/20 08:11 Buspirone HCl (Buspar) 7.5 mg TID PO 09/12/20 03:00 09/15/20 17:39 DC 09/15/20 13:07 Chlorpromazine HCl (Thorazine) 25 mg PRN BID PRN IV PSYCHOSIS 09/12/20 02:45 Melatonin (Melatonin) 9 mg QHS PO 09/12/20 21:00 09/23/20 20:55 Benztropine Mesylate (Cogentin) 2 mg BID PO 09/12/20 09:00 09/24/20 08:09 Insulin Human Lispro (HumaLOG) 0-9 UNITS TIDWMEALS SQ 09/12/20 08:00 09/19/20 17:43 Calcium Polycarbophil (Fibercon) 625 mg DAILY PO 09/12/20 09:00 09/24/20 08:08 Haloperidol Lactate (Haldol) 5 mg DAILY IM 09/13/20 11:00 09/16/20 18:26 DC 09/16/20 09:58 Lorazepam (Ativan Inj) 1 mg 1X ONCE IM 09/13/20 10:45 09/13/20 10:56 DC 09/13/20 11:08 Lorazepam (Ativan Inj) 1 mg DAILY IM 09/13/20 11:00 09/18/20 18:04 DC Divalproex Sodium (Depakote Er) 500 mg QHS PO 09/13/20 21:00 09/17/20 17:12 DC 09/16/20 20:50 Carbidopa/Levodopa (Sinemet 25/100) 1 tab DAILY08 PO 09/15/20 08:00 09/17/20 08:01 DC 09/17/20 08:18 Carbidopa/Levodopa (Sinemet 25/100) 2 tab 1400,2100 PO 09/15/20 14:00 09/17/20 21:01 DC 09/17/20 20:41 Carbidopa/Levodopa (Sinemet 25/100) 1 tab TID PO 09/21/20 09:00 09/24/20 08:09 Carbidopa/Levodopa (Sinemet 25/100) 1 tab 0900,1400 PO 09/18/20 09:00 09/20/20 14:01 DC 09/20/20 14:53 Carbidopa/Levodopa (Sinemet 25/100) 2 tab QHS PO 09/18/20 21:00 09/20/20 21:01 DC 09/20/20 20:59 Risperidone (RisperDAL) 2 mg QHS PO 09/14/20 21:00 09/16/20 18:26 DC 09/15/20 20:47 Risperidone (RisperDAL) 2.5 mg QHS PO 09/16/20 21:00 09/18/20 19:10 DC 09/17/20 20:41 Divalproex Sodium (Depakote Er) 750 mg QHS PO 09/17/20 21:00 09/23/20 20:55 Trazodone HCl (Desyrel) 100 mg PRN QHS PRN PO INSOMNIA 09/17/20 20:45 09/19/20 23:07 Trazodone HCl (Desyrel) 100 mg QHS PO 09/17/20 21:00 09/23/20 20:55 Risperidone (RisperDAL) 3.5 mg QHS PO 09/18/20 21:00 09/22/20 19:35 DC 09/21/20 20:33 Alprazolam (Xanax) 0.5 mg BID PO 09/21/20 21:00 09/22/20 19:35 DC 09/22/20 08:50 Alprazolam (Xanax) 0.5 mg DAILY PO 09/22/20 09:00 09/22/20 07:57 DC Alprazolam (Xanax) 0.5 mg DAILY PO 09/24/20 09:00 09/22/20 19:35 DC Alprazolam (Xanax) 0.5 mg TID PO 09/22/20 21:00 09/24/20 08:09 Risperidone (RisperDAL) 4 mg QHS PO 09/22/20 21:00 09/23/20 20:54 I have reviewed the current psychotropics carefully including drug interactions. Risk benefit ratio favors no change other than as noted in my dictated progress note. Diagnosis: Problems: (1) Schizoaffective disorder, bipolar type (2) Impulse control disorder, unspecified (3) Anxiety disorder, unspecified (4) Bipolar disorder, current episode manic, severe with psychotic features BRIGIDA WOMACK MD Sep 24, 2020 09:20
--- NOTE | 2020-09-24 11:28 | NUR ---
Pt is compliant with medications taken whole, iron tablet and Miralax held at his request. He is able to make his needs known to staff and verbalizes no complaints/concerns. Pt is A&Ox4, absent of SI/HI/VH/AH/delusions/pain. Plan of care continues, will pass to next shift.
--- NOTE | 2020-09-24 15:01 | NUR ---
VISHNU returned call to Delano, Public News Director, to go over pt behavior over the weekend and to discuss the family not having the passcode. Delano was under the belief that family did not need the passcode for phone calls; that the passcode is for release of information, which he does not want the family to have. VISHNU informed Delano that is not the case and was thankful to clear up the miscommunication. As it stands, pt should be good to discharge either Thursday or of this week. Delano will leave the day up to the facility as they will be setting up the transportation. VISHNU will let Delano know which day pt will discharge.
[2020-09-24 16:02] VITALS: BP 144/73
[2020-09-24] MEDS: risperiDONE 1 MG TABLET. PO SCH (21:03)
[2020-09-24] MEDS: TAMSULOSIN 0.4 MG CAP.ER.24H. PO SCH (21:03)
[2020-09-24] MEDS: ATORVASTATIN CALCIUM 20 MG TABLET PO SCH (21:03)
[2020-09-24] MEDS: DIVALPROEX ER 250 MG TAB.ER.24H. PO SCH (21:03)
[2020-09-24] MEDS: MELATONIN 3 MG TABLET PO SCH (21:04)
[2020-09-24] MEDS: traZODone 100 MG TABLET. PO SCH (21:04)
--- NOTE | 2020-09-24 22:07 | PDOC ---
Exam Note: Joel Note: Please also refer to the separate dictated note~for this date of service dictated separately.~Patient seen individually. Discussed the patient with Nursing staff reviewed the chart.~Reviewed interim history and current functioning. Reviewed vital signs,~Labs/ Radiology~and current medications noted below. Continue current treatment with the changes noted in the dictated addendum note Assessment: Vital Signs/I&O: Vital Signs Date Time Temp Pulse Resp B/P (MAP) Pulse Ox O2 Delivery O2 Flow Rate FiO2 09/24/20 17:28 75 144/73 09/24/20 16:02 97.9 16 100 09/24/20 06:00 Room Air I & O 09/23/20 09/23/20 09/24/20 15:00 23:00 07:00 Intake Total 1020 ml 600 ml Balance 1020 ml 600 ml Labs: Laboratory Tests Test 09/24/20 07:28 09/24/20 11:14 09/24/20 16:31 09/24/20 19:17 Glucose (Fingerstick) 127 mg/dL (70-99) H 133 mg/dL (70-99) H 144 mg/dL (70-99) H 147 mg/dL (70-99) H Current Medications: Meds: Laboratory Tests Test 09/24/20 07:28 09/24/20 11:14 09/24/20 16:31 09/24/20 19:17 Glucose (Fingerstick) 127 mg/dL 133 mg/dL 144 mg/dL 147 mg/dL Current Medications Medications (Trade) Dose Ordered Sig/Moe Route PRN Reason Start Time Stop Time Status Last Admin Dose Admin Acetaminophen (Tylenol) 650 mg PRN Q6HRS PRN PO MILD PAIN / TEMP > 100.3'F 09/12/20 01:00 09/17/20 00:35 Multi-Ingredient Ointment (Analgesic [place]) 1 miquel PRN QID PRN TP MUSCLE PAIN 09/12/20 01:00 Al Hydroxide/Mg Hydroxide (Mylanta Plus Xs) 15 ml PRN AFTMEALHC PRN PO DYSPEPSIA 09/12/20 01:00 Magnesium Hydroxide (Milk Of Magnesia) 2,400 mg PRN QHS PRN PO CONSTIPATION 09/12/20 01:00 09/20/20 06:25 Nicotine (Nicoderm Cq 21mg Patch) 1 patch DAILY TD 6/2/21 09:00 09/24/20 08:07 Alprazolam (Xanax) 0.5 mg TID PO 09/12/20 02:00 09/12/20 02:50 DC 09/12/20 02:01 Olanzapine (ZyPREXA) 5 mg HS PO 09/12/20 02:00 09/14/20 17:48 DC 09/13/20 20:20 Trazodone HCl (Desyrel) 100 mg HS PO 09/12/20 02:00 09/17/20 20:50 DC 09/17/20 00:06 Benztropine Mesylate (Cogentin) 2 mg BID PO 09/12/20 02:00 09/12/20 02:51 DC 09/12/20 02:01 Melatonin (Melatonin) 9 mg HS PO 09/12/20 02:00 09/12/20 02:51 DC 09/12/20 02:01 Quetiapine Fumarate (SEROquel) 200 mg HS PO 09/12/20 02:00 09/15/20 17:39 DC 09/14/20 20:31 Amlodipine Besylate (Norvasc) 10 mg DAILY PO 09/12/20 09:00 09/24/20 08:09 Calcium Polycarbophil (Fibercon) 625 mg DAILY PO 09/12/20 09:00 09/12/20 09:12 DC Carbidopa/Levodopa (Sinemet 25/100) 2 tab TID PO 09/12/20 09:00 09/14/20 22:00 DC 09/14/20 20:29 Cetirizine HCl (ZyrTEC) 10 mg PRN DAILY PRN PO ALLERGIES 09/12/20 02:30 Ferrous Sulfate (Feosol) 325 mg TIDWMEALS PO 09/12/20 08:00 09/23/20 16:40 Montelukast Sodium (Singulair) 10 mg DAILY PO 09/12/20 09:00 09/24/20 08:08 Artificial Tears (Artificial Tears) 1 drop PRN QID PRN OU DRY EYE 09/12/20 02:30 Tamsulosin HCl (Flomax) 0.4 mg HS PO 09/12/20 21:00 09/24/20 21:03 Lisinopril (Prinivil) 30 mg DAILY PO 09/12/20 09:00 09/24/20 08:09 Non-Formulary Medication (Loratadine ) 10 mg DAILY PO 09/12/20 09:00 09/12/20 02:37 DC Polyethylene Glycol (miraLAX) 17 gm DAILY PO 09/12/20 09:00 09/22/20 08:50 Non-Formulary Medication ([Diphen/Maalox/ Lido] ) 5 ml QID PRN PO Abdominal Pain 09/12/20 02:30 UNV Atorvastatin Calcium (Lipitor) 40 mg QHS PO 09/12/20 21:00 09/24/20 21:03 Carvedilol (Coreg) 25 mg BIDWMEALS PO 09/12/20 08:00 09/24/20 17:28 Simethicone (Gas-X) 80 mg PRN BID PRN PO GAS / BLOATING 09/12/20 02:45 Multi-Ingredient Mouthwash/Gargle (Magic Mouthwash) 10 ml PRN QID PRN PO MOUTH PAIN 09/12/20 09:00 Alprazolam (Xanax) 0.5 mg TID PO 09/12/20 09:00 09/21/20 17:40 DC 09/21/20 08:11 Buspirone HCl (Buspar) 7.5 mg TID PO 09/12/20 03:00 09/15/20 17:39 DC 09/15/20 13:07 Chlorpromazine HCl (Thorazine) 25 mg PRN BID PRN IV PSYCHOSIS 09/12/20 02:45 Melatonin (Melatonin) 9 mg QHS PO 09/12/20 21:00 09/24/20 21:04 Benztropine Mesylate (Cogentin) 2 mg BID PO 09/12/20 09:00 09/24/20 21:03 Insulin Human Lispro (HumaLOG) 0-9 UNITS TIDWMEALS SQ 09/12/20 08:00 09/19/20 17:43 Calcium Polycarbophil (Fibercon) 625 mg DAILY PO 09/12/20 09:00 09/24/20 08:08 Haloperidol Lactate (Haldol) 5 mg DAILY IM 09/13/20 11:00 09/16/20 18:26 DC 09/16/20 09:58 Lorazepam (Ativan Inj) 1 mg 1X ONCE IM 09/13/20 10:45 09/13/20 10:56 DC 09/13/20 11:08 Lorazepam (Ativan Inj) 1 mg DAILY IM 09/13/20 11:00 09/18/20 18:04 DC Divalproex Sodium (Depakote Er) 500 mg QHS PO 09/13/20 21:00 09/17/20 17:12 DC 09/16/20 20:50 Carbidopa/Levodopa (Sinemet 25/100) 1 tab DAILY08 PO 09/15/20 08:00 09/17/20 08:01 DC 09/17/20 08:18 Carbidopa/Levodopa (Sinemet 25/100) 2 tab 1400,2100 PO 09/15/20 14:00 09/17/20 21:01 DC 09/17/20 20:41 Carbidopa/Levodopa (Sinemet 25/100) 1 tab TID PO 09/21/20 09:00 09/24/20 21:04 Carbidopa/Levodopa (Sinemet 25/100) 1 tab 0900,1400 PO 09/18/20 09:00 09/20/20 14:01 DC 09/20/20 14:53 Carbidopa/Levodopa (Sinemet 25/100) 2 tab QHS PO 09/18/20 21:00 09/20/20 21:01 DC 09/20/20 20:59 Risperidone (RisperDAL) 2 mg QHS PO 09/14/20 21:00 09/16/20 18:26 DC 09/15/20 20:47 Risperidone (RisperDAL) 2.5 mg QHS PO 09/16/20 21:00 09/18/20 19:10 DC 09/17/20 20:41 Divalproex Sodium (Depakote Er) 750 mg QHS PO 09/17/20 21:00 09/24/20 21:03 Trazodone HCl (Desyrel) 100 mg PRN QHS PRN PO INSOMNIA 09/17/20 20:45 09/19/20 23:07 Trazodone HCl (Desyrel) 100 mg QHS PO 09/17/20 21:00 09/24/20 21:04 Risperidone (RisperDAL) 3.5 mg QHS PO 09/18/20 21:00 09/22/20 19:35 DC 09/21/20 20:33 Alprazolam (Xanax) 0.5 mg BID PO 09/21/20 21:00 09/22/20 19:35 DC 09/22/20 08:50 Alprazolam (Xanax) 0.5 mg DAILY PO 09/22/20 09:00 09/22/20 07:57 DC Alprazolam (Xanax) 0.5 mg DAILY PO 09/24/20 09:00 09/22/20 19:35 DC Alprazolam (Xanax) 0.5 mg TID PO 09/22/20 21:00 09/24/20 21:03 Risperidone (RisperDAL) 4 mg QHS PO 09/22/20 21:00 09/24/20 21:03 I have reviewed the current psychotropics carefully including drug interactions. Risk benefit ratio favors no change other than as noted in my dictated progress note. Diagnosis: Problems: (1) Schizoaffective disorder, bipolar type (2) Impulse control disorder, unspecified (3) Anxiety disorder, unspecified (4) Bipolar disorder, current episode manic, severe with psychotic features BRIGDIA WOMACK MD Sep 24, 2020 22:07
--- NOTE | 2020-09-25 00:51 | NUR ---
Patient watched tv with peers this evening. He is calm, cooperative and compliant with medications. Patient is alert and oriented x4. No adverse behaviors noted at this time.
[2020-09-25] MEDS: traZODone 100 MG TABLET. PO PRN (01:05)
--- NOTE | 2020-09-25 01:10 | NUR ---
Patient is awake, he stated he had been sleeping but cannot get back to sleep. PRN Trazodone given per order by patient request. Will continue to monitor.
[2020-09-25 05:55] VITALS: BP 143/82
--- NOTE | 2020-09-25 07:58 | PDOC ---
Exam Note: Joel Note: This note is a late entry for 09/24/2020 covers elements not covered in my initial note. Subjective: The patient was seen individually in the evening of 09/24/2020 with Annmarie ROONEY, discussed and reviewed the chart. The patient slept 3 hours previous night. He is compliant with medications, interacting better with people around him. He has befriended one of the other cognitively intact patients on the unit. He slept poorly last night but had refused his trazodone. Review of Systems: No CV, , pulmonary, eye, ENT system symptoms on review. Mental Status Exam: The patient is reasonably oriented. Speech coherent. Abstraction fair. Computation impaired. Language function intact, less paranoid. Mood and affect remains labile, anxious. No suicidal or homicidal ideation. Laboratory Data: Reviewed. Impression: Bipolar disorder mixed with psychotic features. Anxiety disorder unspecified. Impulse control disorder unspecified. Schizoaffective disorder, bipolar type, manic with psychotic features. Plan: No change from initial note. Assessment: Vital Signs/I&O: Vital Signs Date Time Temp Pulse Resp B/P (MAP) Pulse Ox O2 Delivery O2 Flow Rate FiO2 09/25/20 05:55 97.4 64 16 143/82 (102) 100 Room Air I & O 09/24/20 09/24/20 09/25/20 15:00 23:00 07:00 Intake Total 840 ml 360 ml 240 ml Balance 840 ml 360 ml 240 ml Labs: Laboratory Tests Test 09/24/20 11:14 09/24/20 16:31 09/24/20 19:17 09/25/20 07:34 Glucose (Fingerstick) 133 mg/dL (70-99) H 144 mg/dL (70-99) H 147 mg/dL (70-99) H 130 mg/dL (70-99) H Current Medications: Meds: Laboratory Tests Test 09/24/20 11:14 09/24/20 16:31 09/24/20 19:17 09/25/20 07:34 Glucose (Fingerstick) 133 mg/dL 144 mg/dL 147 mg/dL 130 mg/dL Current Medications Medications (Trade) Dose Ordered Sig/Moe Route PRN Reason Start Time Stop Time Status Last Admin Dose Admin Acetaminophen (Tylenol) 650 mg PRN Q6HRS PRN PO MILD PAIN / TEMP > 100.3'F 09/12/20 01:00 09/17/20 00:35 Multi-Ingredient Ointment (Analgesic [place]) 1 miquel PRN QID PRN TP MUSCLE PAIN 09/12/20 01:00 Al Hydroxide/Mg Hydroxide (Mylanta Plus Xs) 15 ml PRN AFTMEALHC PRN PO DYSPEPSIA 09/12/20 01:00 Magnesium Hydroxide (Milk Of Magnesia) 2,400 mg PRN QHS PRN PO CONSTIPATION 09/12/20 01:00 09/20/20 06:25 Nicotine (Nicoderm Cq 21mg Patch) 1 patch DAILY TD 09/12/20 09:00 09/24/20 08:07 Alprazolam (Xanax) 0.5 mg TID PO 09/12/20 02:00 09/12/20 02:50 DC 09/12/20 02:01 Olanzapine (ZyPREXA) 5 mg HS PO 09/12/20 02:00 09/14/20 17:48 DC 09/13/20 20:20 Trazodone HCl (Desyrel) 100 mg HS PO 09/12/20 02:00 09/17/20 20:50 DC 09/17/20 00:06 Benztropine Mesylate (Cogentin) 2 mg BID PO 09/12/20 02:00 09/12/20 02:51 DC 09/12/20 02:01 Melatonin (Melatonin) 9 mg HS PO 09/12/20 02:00 09/12/20 02:51 DC 09/12/20 02:01 Quetiapine Fumarate (SEROquel) 200 mg HS PO 09/12/20 02:00 09/15/20 17:39 DC 09/14/20 20:31 Amlodipine Besylate (Norvasc) 10 mg DAILY PO 09/12/20 09:00 09/24/20 08:09 Calcium Polycarbophil (Fibercon) 625 mg DAILY PO 09/12/20 09:00 09/12/20 09:12 DC Carbidopa/Levodopa (Sinemet 25/100) 2 tab TID PO 09/12/20 09:00 09/14/20 22:00 DC 09/14/20 20:29 Cetirizine HCl (ZyrTEC) 10 mg PRN DAILY PRN PO ALLERGIES 09/12/20 02:30 Ferrous Sulfate (Feosol) 325 mg TIDWMEALS PO 09/12/20 08:00 09/23/20 16:40 Montelukast Sodium (Singulair) 10 mg DAILY PO 09/12/20 09:00 09/24/20 08:08 Artificial Tears (Artificial Tears) 1 drop PRN QID PRN OU DRY EYE 09/12/20 02:30 Tamsulosin HCl (Flomax) 0.4 mg HS PO 09/12/20 21:00 09/24/20 21:03 Lisinopril (Prinivil) 30 mg DAILY PO 09/12/20 09:00 09/24/20 08:09 Non-Formulary Medication (Loratadine ) 10 mg DAILY PO 09/12/20 09:00 09/12/20 02:37 DC Polyethylene Glycol (miraLAX) 17 gm DAILY PO 09/12/20 09:00 09/22/20 08:50 Non-Formulary Medication ([Diphen/Maalox/ Lido] ) 5 ml QID PRN PO Abdominal Pain 09/12/20 02:30 UNV Atorvastatin Calcium (Lipitor) 40 mg QHS PO 09/12/20 21:00 09/24/20 21:03 Carvedilol (Coreg) 25 mg BIDWMEALS PO 09/12/20 08:00 09/24/20 17:28 Simethicone (Gas-X) 80 mg PRN BID PRN PO GAS / BLOATING 09/12/20 02:45 Multi-Ingredient Mouthwash/Gargle (Magic Mouthwash) 10 ml PRN QID PRN PO MOUTH PAIN 09/12/20 09:00 Alprazolam (Xanax) 0.5 mg TID PO 09/12/20 09:00 09/21/20 17:40 DC 09/21/20 08:11 Buspirone HCl (Buspar) 7.5 mg TID PO 09/12/20 03:00 09/15/20 17:39 DC 09/15/20 13:07 Chlorpromazine HCl (Thorazine) 25 mg PRN BID PRN IV PSYCHOSIS 09/12/20 02:45 Melatonin (Melatonin) 9 mg QHS PO 09/12/20 21:00 09/24/20 21:04 Benztropine Mesylate (Cogentin) 2 mg BID PO 09/12/20 09:00 09/24/20 21:03 Insulin Human Lispro (HumaLOG) 0-9 UNITS TIDWMEALS SQ 09/12/20 08:00 09/19/20 17:43 Calcium Polycarbophil (Fibercon) 625 mg DAILY PO 09/12/20 09:00 09/24/20 08:08 Haloperidol Lactate (Haldol) 5 mg DAILY IM 09/13/20 11:00 09/16/20 18:26 DC 09/16/20 09:58 Lorazepam (Ativan Inj) 1 mg 1X ONCE IM 09/13/20 10:45 09/13/20 10:56 DC 09/13/20 11:08 Lorazepam (Ativan Inj) 1 mg DAILY IM 09/13/20 11:00 09/18/20 18:04 DC Divalproex Sodium (Depakote Er) 500 mg QHS PO 09/13/20 21:00 09/17/20 17:12 DC 09/16/20 20:50 Carbidopa/Levodopa (Sinemet 25/100) 1 tab DAILY08 PO 09/15/20 08:00 09/17/20 08:01 DC 09/17/20 08:18 Carbidopa/Levodopa (Sinemet 25/100) 2 tab 1400,2100 PO 09/15/20 14:00 09/17/20 21:01 DC 09/17/20 20:41 Carbidopa/Levodopa (Sinemet 25/100) 1 tab TID PO 09/21/20 09:00 09/24/20 21:04 Carbidopa/Levodopa (Sinemet 25/100) 1 tab 0900,1400 PO 09/18/20 09:00 09/20/20 14:01 DC 09/20/20 14:53 Carbidopa/Levodopa (Sinemet 25/100) 2 tab QHS PO 09/18/20 21:00 09/20/20 21:01 DC 09/20/20 20:59 Risperidone (RisperDAL) 2 mg QHS PO 09/14/20 21:00 09/16/20 18:26 DC 09/15/20 20:47 Risperidone (RisperDAL) 2.5 mg QHS PO 09/16/20 21:00 09/18/20 19:10 DC 09/17/20 20:41 Divalproex Sodium (Depakote Er) 750 mg QHS PO 09/17/20 21:00 09/24/20 21:03 Trazodone HCl (Desyrel) 100 mg PRN QHS PRN PO INSOMNIA 09/17/20 20:45 09/25/20 01:05 Trazodone HCl (Desyrel) 100 mg QHS PO 09/17/20 21:00 09/24/20 21:04 Risperidone (RisperDAL) 3.5 mg QHS PO 09/18/20 21:00 09/22/20 19:35 DC 09/21/20 20:33 Alprazolam (Xanax) 0.5 mg BID PO 09/21/20 21:00 09/22/20 19:35 DC 09/22/20 08:50 Alprazolam (Xanax) 0.5 mg DAILY PO 09/22/20 09:00 09/22/20 07:57 DC Alprazolam (Xanax) 0.5 mg DAILY PO 09/24/20 09:00 09/22/20 19:35 DC Alprazolam (Xanax) 0.5 mg TID PO 09/22/20 21:00 09/24/20 21:03 Risperidone (RisperDAL) 4 mg QHS PO 09/22/20 21:00 09/24/20 21:03 I have reviewed the current psychotropics carefully including drug interactions. Risk benefit ratio favors no change other than as noted in my dictated progress note. Diagnosis: Problems: (1) Schizoaffective disorder, bipolar type (2) Impulse control disorder, unspecified (3) Anxiety disorder, unspecified (4) Bipolar disorder, current episode manic, severe with psychotic features BRIGIDA WOMACK MD Sep 25, 2020 07:58
[2020-09-25] MEDS: INSULIN LISPRO 300 UNITS/3 ML VIAL. SQ SCH ×3 (08:00→17:22)
[2020-09-25] MEDS: LISINOPRIL 10 MG TABLET PO SCH (08:12)
[2020-09-25] MEDS: BENZTROPINE MESYLATE 1 MG TABLET PO SCH ×2 (08:13→20:34)
[2020-09-25] MEDS: CARBIDOPA/LEVODOPA 25/100MG TABLET PO SCH ×3 (08:13→20:34)
[2020-09-25] MEDS: CALCIUM POLYCARBOPHIL 625 MG TABLET PO SCH (08:13)
[2020-09-25] MEDS: CARVEDILOL 12.5 MG TABLET PO SCH ×2 (08:13→17:20)
[2020-09-25] MEDS: NICOTINE 21MG PATCH. TD SCH (08:13)
[2020-09-25] MEDS: FERROUS SULFATE 325 MG TABLET. PO SCH ×3 (08:13→17:00)
[2020-09-25] MEDS: MONTELUKAST 10 MG TABLET. PO SCH (08:13)
[2020-09-25] MEDS: amLODIPine BESYLATE 10 MG TABLET PO SCH (08:13)
[2020-09-25] MEDS: ALPRAZolam 0.5 MG TABLET PO SCH ×3 (08:14→20:35)
[2020-09-25] MEDS: POLYETHYLENE GLYCOL 3350 17 GM PACKET. PO SCH (08:20)
--- NOTE | 2020-09-25 09:31 | NUR ---
VISHNU contacted [facility] and spoke with VISHNU Patel re: pt return to the facility this week. Amanda will check with transport to see what day works best and will contact VISHNU with which day works best and a time. VISHNU faxed over notes for their team to review and VISHNU encouraged them to call back with any questions they may have based off the notes.
--- NOTE | 2020-09-25 12:40 | NUR ---
Nursing note: Pt in dining room at time of AM med pass and assessment. He is pleasant, med compliant and cooperative. Pt denies having any pain/concerns. He has been very helpful with other pt's on the unit. He is currently in the dining room for lunch. Will continue to monitor.
--- NOTE | 2020-09-25 15:27 | PN ---
DATE: 09/20/2020 SUBJECTIVE: The patient denies any new medical or neurological complaints. He denies headaches, visual disturbances, nausea, vomiting, chest pain, shortness of breath or palpitation. The patient denies any recent falls or injury. He denies tremor or rigidity. OBJECTIVE: GENERAL: A well-developed, well-nourished male, in no acute distress. VITAL SIGNS: Blood pressure 138/81, respiratory rate 20, blood pressure 138/81, respiratory rate 20, pulse is 64, oxygen saturation 100% on room air. HEENT: Normocephalic, atraumatic, otherwise unremarkable. NECK: Supple. Negative for carotid bruit, lymphadenopathy and thyromegaly. LUNGS: Clear to A and P. HEART: Regular rate and rhythm, normal S1, S2. ABDOMEN: Soft. Bowel sounds positive. EXTREMITIES: Negative for cyanosis, clubbing or edema. NEUROLOGIC: Mental status: The patient is alert and oriented x 3. Speech is clear. There is no language dysfunction. Memory, judgment and abstracting thinking are fair. The patient denies hallucination or delusion. Cranial nerves are intact. No focal motor or sensory deficit. Deep tendon reflexes were symmetric and hypoactive with absent Achilles responses. Gait is normal. IMPRESSION: 1. Longstanding history of Parkinson's disease with a stable neurological examination without evidence of parkinsonism at this time. 2. Multiple medical problems which include hypertension, hyperlipidemia, diabetes mellitus type 2, degenerative joint disease. 3. Multiple psychiatric problems include schizoaffective disorders, anxiety disorders, bipolar disorder. RECOMMENDATIONS: 1. We will continue with current medical and psychiatric care. 2. We will continue with carbidopa and levodopa at 25/100 t.i.d. MICKY/TARA DR: Mary TID: [id number]
[2020-09-25 15:44] VITALS: BP 147/82
--- NOTE | 2020-09-25 16:15 | NUR ---
VISHNU attempted to contact Amanda at [facility] and was told she was already gone for the day. The ED was able to talk to VISHNU and reports that they did go over the packet; however, no decision on transport and discharge was discussed that he knew of. He asked to contact VISHNU back in the morning with a more definitive date for discharge and VISHNU requested that he has for my co-worker with the date and time of slat pickler for pt to return to [facility].
--- NOTE | 2020-09-25 16:35 | NUR ---
[facility] Social Work Discharge Planning Form Patient Name BING GRUBBS Admit Date: 11 September 2020 DISCHARGE PLAN Discharge Destination: Pt to return to [facility] in [place] Care Assessment: N/A Level II Assessment: N/A Transportation: Facility to call and confirm apple picker time. Special Instructions/Notes: Please fax discharge orders, discharge medication list and discharge summary to the fax number listed below. DISCHARGE TO FACILITY Facility: [facility] Address: [address] [place] [address] Contact Name: Gilles Power, Second Rigger: Contact Name: Please ask for the nurse caring for pt upon admission. PCP: Dr. David Baker
[2020-09-25] MEDS: ATORVASTATIN CALCIUM 20 MG TABLET PO SCH (20:34)
[2020-09-25] MEDS: DIVALPROEX ER 250 MG TAB.ER.24H. PO SCH (20:34)
[2020-09-25] MEDS: traZODone 100 MG TABLET. PO SCH (20:35)
[2020-09-25] MEDS: TAMSULOSIN 0.4 MG CAP.ER.24H. PO SCH (20:35)
[2020-09-25] MEDS: MELATONIN 3 MG TABLET PO SCH (20:35)
[2020-09-25] MEDS: risperiDONE 1 MG TABLET. PO SCH (20:35)
--- NOTE | 2020-09-25 20:46 | NUR ---
Patient would like to speak to hospitalist about his stool, they are black and he has not been taking his iron for a few days. His weight has gone from 158.4 lbs to 154.6 lbs since admission on 09/12. Will pass on in report.
--- NOTE | 2020-09-25 22:15 | PDOC ---
Exam Note: Joel Note: Please also refer to the separate dictated note~for this date of service dictated separately.~Patient seen individually. Discussed the patient with Nursing staff reviewed the chart.~Reviewed interim history and current functioning. Reviewed vital signs,~Labs/ Radiology~and current medications noted below. Continue current treatment with the changes noted in the dictated addendum note Assessment: Vital Signs/I&O: Vital Signs Date Time Temp Pulse Resp B/P (MAP) Pulse Ox O2 Delivery O2 Flow Rate FiO2 09/25/20 17:20 66 147/82 09/25/20 15:44 97.8 18 100 09/25/20 05:55 Room Air I & O 09/24/20 09/24/20 09/25/20 14:59 22:59 06:59 Intake Total 840 ml 360 ml 240 ml Balance 840 ml 360 ml 240 ml Labs: Laboratory Tests Test 09/25/20 07:34 09/25/20 11:34 09/25/20 16:15 09/25/20 19:31 Glucose (Fingerstick) 130 mg/dL (70-99) H 104 mg/dL (70-99) H 153 mg/dL (70-99) H 106 mg/dL (70-99) H Current Medications: Meds: Laboratory Tests Test 09/25/20 07:34 09/25/20 11:34 09/25/20 16:15 09/25/20 19:31 Glucose (Fingerstick) 130 mg/dL 104 mg/dL 153 mg/dL 106 mg/dL Current Medications Medications (Trade) Dose Ordered Sig/Moe Route PRN Reason Start Time Stop Time Status Last Admin Dose Admin Acetaminophen (Tylenol) 650 mg PRN Q6HRS PRN PO MILD PAIN / TEMP > 100.3'F 09/12/20 01:00 09/17/20 00:35 Multi-Ingredient Ointment (Analgesic [place]) 1 miquel PRN QID PRN TP MUSCLE PAIN 09/12/20 01:00 Al Hydroxide/Mg Hydroxide (Mylanta Plus Xs) 15 ml PRN AFTMEALHC PRN PO DYSPEPSIA 09/12/20 01:00 Magnesium Hydroxide (Milk Of Magnesia) 2,400 mg PRN QHS PRN PO CONSTIPATION 09/12/20 01:00 09/20/20 06:25 Nicotine (Nicoderm Cq 21mg Patch) 1 patch DAILY TD 09/12/20 09:00 09/25/20 08:13 Alprazolam (Xanax) 0.5 mg TID PO 09/12/20 02:00 09/12/20 02:50 DC 09/12/20 02:01 Olanzapine (ZyPREXA) 5 mg HS PO 09/12/20 02:00 09/14/20 17:48 DC 09/13/20 20:20 Trazodone HCl (Desyrel) 100 mg HS PO 09/12/20 02:00 09/17/20 20:50 DC 09/17/20 00:06 Benztropine Mesylate (Cogentin) 2 mg BID PO 09/12/20 02:00 09/12/20 02:51 DC 09/12/20 02:01 Melatonin (Melatonin) 9 mg HS PO 09/12/20 02:00 09/12/20 02:51 DC 09/12/20 02:01 Quetiapine Fumarate (SEROquel) 200 mg HS PO 09/12/20 02:00 09/15/20 17:39 DC 09/14/20 20:31 Amlodipine Besylate (Norvasc) 10 mg DAILY PO 09/12/20 09:00 09/25/20 08:13 Calcium Polycarbophil (Fibercon) 625 mg DAILY PO 09/12/20 09:00 09/12/20 09:12 DC Carbidopa/Levodopa (Sinemet 25/100) 2 tab TID PO 09/12/20 09:00 09/14/20 22:00 DC 09/14/20 20:29 Cetirizine HCl (ZyrTEC) 10 mg PRN DAILY PRN PO ALLERGIES 09/12/20 02:30 Ferrous Sulfate (Feosol) 325 mg TIDWMEALS PO 09/12/20 08:00 09/25/20 08:13 Montelukast Sodium (Singulair) 10 mg DAILY PO 09/12/20 09:00 09/25/20 08:13 Artificial Tears (Artificial Tears) 1 drop PRN QID PRN OU DRY EYE 09/12/20 02:30 Tamsulosin HCl (Flomax) 0.4 mg HS PO 09/12/20 21:00 09/25/20 20:35 Lisinopril (Prinivil) 30 mg DAILY PO 09/12/20 09:00 09/25/20 08:12 Non-Formulary Medication (Loratadine ) 10 mg DAILY PO 09/12/20 09:00 09/12/20 02:37 DC Polyethylene Glycol (miraLAX) 17 gm DAILY PO 09/12/20 09:00 09/22/20 08:50 Non-Formulary Medication ([Diphen/Maalox/ Lido] ) 5 ml QID PRN PO Abdominal Pain 09/12/20 02:30 UNV Atorvastatin Calcium (Lipitor) 40 mg QHS PO 09/12/20 21:00 09/25/20 20:34 Carvedilol (Coreg) 25 mg BIDWMEALS PO 09/12/20 08:00 09/25/20 17:20 Simethicone (Gas-X) 80 mg PRN BID PRN PO GAS / BLOATING 09/12/20 02:45 Multi-Ingredient Mouthwash/Gargle (Magic Mouthwash) 10 ml PRN QID PRN PO MOUTH PAIN 09/12/20 09:00 Alprazolam (Xanax) 0.5 mg TID PO 09/12/20 09:00 09/21/20 17:40 DC 09/21/20 08:11 Buspirone HCl (Buspar) 7.5 mg TID PO 09/12/20 03:00 09/15/20 17:39 DC 09/15/20 13:07 Chlorpromazine HCl (Thorazine) 25 mg PRN BID PRN IV PSYCHOSIS 09/12/20 02:45 Melatonin (Melatonin) 9 mg QHS PO 09/12/20 21:00 09/25/20 20:35 Benztropine Mesylate (Cogentin) 2 mg BID PO 09/12/20 09:00 09/25/20 20:34 Insulin Human Lispro (HumaLOG) 0-9 UNITS TIDWMEALS SQ 09/12/20 08:00 09/25/20 17:22 Calcium Polycarbophil (Fibercon) 625 mg DAILY PO 09/12/20 09:00 09/25/20 08:13 Haloperidol Lactate (Haldol) 5 mg DAILY IM 09/13/20 11:00 09/16/20 18:26 DC 09/16/20 09:58 Lorazepam (Ativan Inj) 1 mg 1X ONCE IM 09/13/20 10:45 09/13/20 10:56 DC 09/13/20 11:08 Lorazepam (Ativan Inj) 1 mg DAILY IM 09/13/20 11:00 09/18/20 18:04 DC Divalproex Sodium (Depakote Er) 500 mg QHS PO 09/13/20 21:00 09/17/20 17:12 DC 09/16/20 20:50 Carbidopa/Levodopa (Sinemet 25/100) 1 tab DAILY08 PO 09/15/20 08:00 09/17/20 08:01 DC 09/17/20 08:18 Carbidopa/Levodopa (Sinemet 25/100) 2 tab 1400,2100 PO 09/15/20 14:00 09/17/20 21:01 DC 09/17/20 20:41 Carbidopa/Levodopa (Sinemet 25/100) 1 tab TID PO 09/21/20 09:00 09/25/20 20:34 Carbidopa/Levodopa (Sinemet 25/100) 1 tab 0900,1400 PO 09/18/20 09:00 09/20/20 14:01 DC 09/20/20 14:53 Carbidopa/Levodopa (Sinemet 25/100) 2 tab QHS PO 09/18/20 21:00 09/20/20 21:01 DC 09/20/20 20:59 Risperidone (RisperDAL) 2 mg QHS PO 09/14/20 21:00 09/16/20 18:26 DC 09/15/20 20:47 Risperidone (RisperDAL) 2.5 mg QHS PO 09/16/20 21:00 09/18/20 19:10 DC 09/17/20 20:41 Divalproex Sodium (Depakote Er) 750 mg QHS PO 09/17/20 21:00 09/25/20 20:34 Trazodone HCl (Desyrel) 100 mg PRN QHS PRN PO INSOMNIA 09/17/20 20:45 09/25/20 01:05 Trazodone HCl (Desyrel) 100 mg QHS PO 09/17/20 21:00 09/25/20 20:35 Risperidone (RisperDAL) 3.5 mg QHS PO 09/18/20 21:00 09/22/20 19:35 DC 09/21/20 20:33 Alprazolam (Xanax) 0.5 mg BID PO 09/21/20 21:00 09/22/20 19:35 DC 09/22/20 08:50 Alprazolam (Xanax) 0.5 mg DAILY PO 09/22/20 09:00 09/22/20 07:57 DC Alprazolam (Xanax) 0.5 mg DAILY PO 09/24/20 09:00 09/22/20 19:35 DC Alprazolam (Xanax) 0.5 mg TID PO 09/22/20 21:00 09/25/20 20:35 Risperidone (RisperDAL) 4 mg QHS PO 09/22/20 21:00 09/25/20 20:35 I have reviewed the current psychotropics carefully including drug interactions. Risk benefit ratio favors no change other than as noted in my dictated progress note. Diagnosis: Problems: (1) Schizoaffective disorder, bipolar type (2) Impulse control disorder, unspecified (3) Anxiety disorder, unspecified (4) Bipolar disorder, current episode manic, severe with psychotic features BRIGIDA WOMACK MD Sep 25, 2020 22:14
[2020-09-25] MEDS ORDERED: TRAZ-125 PO (22:59)
[2020-09-25] MEDS ORDERED: DIVA125C2 PO (23:09)
[2020-09-25] MEDS ORDERED: DIVA250T14 PO (23:12)
[2020-09-25] MEDS ORDERED: RISP4TAB65 PO (23:14)
[2020-09-25] MEDS ORDERED: METH57CR17 TP (23:19)
[2020-09-25] MEDS ORDERED: NICO1PAT21 TD (23:20)
--- NOTE | 2020-09-25 23:32 | PDOC ---
Exam Note: Joel Note: This note covers elements not covered in my initial note. Subjective: The patient was seen individually in the evening of 09/25/2020 with Zhanna ROONEY, discussed and reviewed the chart. The patient slept 4-1/2 hours previous night. Overall per nursing report the patient has done reasonably well. As I met with him he was complaining about vague somatic symptoms and I addressed this with him. 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 Review of Systems: Positive for dark colored stools due to his iron. I will defer to Dr. Wang. No CV, , pulmonary, eye, ENT system symptoms on review. Reliability fair. Mental Status Exam: The patient is reasonably oriented. Speech coherent. He is somewhat suspicious but much improved as compared to how he was at the admission. Abstraction fair. Computation impaired. Language function intact. Mood and affect remains less labile. Laboratory Data: Reviewed. Impression: Bipolar disorder mixed with psychotic features. Anxiety disorder unspecified. Impulse control disorder unspecified. Schizoaffective disorder, bipolar type, manic with psychotic features. Plan: No change from initial note. Tentative discharge to the nursing facility in the next day or so. Assessment: Vital Signs/I&O: Vital Signs Date Time Temp Pulse Resp B/P (MAP) Pulse Ox O2 Delivery O2 Flow Rate FiO2 09/25/20 17:20 66 147/82 09/25/20 15:44 97.8 18 100 09/25/20 05:55 Room Air I & O 09/24/20 09/24/20 09/25/20 15:00 23:00 07:00 Intake Total 840 ml 360 ml 240 ml Balance 840 ml 360 ml 240 ml Labs: Laboratory Tests Test 09/25/20 07:34 09/25/20 11:34 09/25/20 16:15 09/25/20 19:31 Glucose (Fingerstick) 130 mg/dL (70-99) H 104 mg/dL (70-99) H 153 mg/dL (70-99) H 106 mg/dL (70-99) H Current Medications: Meds: Laboratory Tests Test 09/25/20 07:34 09/25/20 11:34 09/25/20 16:15 09/25/20 19:31 Glucose (Fingerstick) 130 mg/dL 104 mg/dL 153 mg/dL 106 mg/dL Current Medications Medications (Trade) Dose Ordered Sig/Moe Route PRN Reason Start Time Stop Time Status Last Admin Dose Admin Acetaminophen (Tylenol) 650 mg PRN Q6HRS PRN PO MILD PAIN / TEMP > 100.3'F 09/12/20 01:00 09/17/20 00:35 Multi-Ingredient Ointment (Analgesic [place]) 1 miquel PRN QID PRN TP MUSCLE PAIN 09/12/20 01:00 Al Hydroxide/Mg Hydroxide (Mylanta Plus Xs) 15 ml PRN AFTMEALHC PRN PO DYSPEPSIA 09/12/20 01:00 Magnesium Hydroxide (Milk Of Magnesia) 2,400 mg PRN QHS PRN PO CONSTIPATION 09/12/20 01:00 09/20/20 06:25 Nicotine (Nicoderm Cq 21mg Patch) 1 patch DAILY TD 09/12/20 09:00 09/25/20 08:13 Alprazolam (Xanax) 0.5 mg TID PO 09/12/20 02:00 09/12/20 02:50 DC 09/12/20 02:01 Olanzapine (ZyPREXA) 5 mg HS PO 09/12/20 02:00 09/14/20 17:48 DC 09/13/20 20:20 Trazodone HCl (Desyrel) 100 mg HS PO 09/12/20 02:00 09/17/20 20:50 DC 09/17/20 00:06 Benztropine Mesylate (Cogentin) 2 mg BID PO 09/12/20 02:00 09/12/20 02:51 DC 09/12/20 02:01 Melatonin (Melatonin) 9 mg HS PO 09/12/20 02:00 09/12/20 02:51 DC 09/12/20 02:01 Quetiapine Fumarate (SEROquel) 200 mg HS PO 09/12/20 02:00 09/15/20 17:39 DC 09/14/20 20:31 Amlodipine Besylate (Norvasc) 10 mg DAILY PO 09/12/20 09:00 09/25/20 08:13 Calcium Polycarbophil (Fibercon) 625 mg DAILY PO 09/12/20 09:00 09/12/20 09:12 DC Carbidopa/Levodopa (Sinemet 25/100) 2 tab TID PO 09/12/20 09:00 09/14/20 22:00 DC 09/14/20 20:29 Cetirizine HCl (ZyrTEC) 10 mg PRN DAILY PRN PO ALLERGIES 09/12/20 02:30 Ferrous Sulfate (Feosol) 325 mg TIDWMEALS PO 09/12/20 08:00 09/25/20 08:13 Montelukast Sodium (Singulair) 10 mg DAILY PO 09/12/20 09:00 09/25/20 08:13 Artificial Tears (Artificial Tears) 1 drop PRN QID PRN OU DRY EYE 09/12/20 02:30 Tamsulosin HCl (Flomax) 0.4 mg HS PO 09/12/20 21:00 09/25/20 20:35 Lisinopril (Prinivil) 30 mg DAILY PO 09/12/20 09:00 09/25/20 08:12 Non-Formulary Medication (Loratadine ) 10 mg DAILY PO 09/12/20 09:00 09/12/20 02:37 DC Polyethylene Glycol (miraLAX) 17 gm DAILY PO 09/12/20 09:00 09/22/20 08:50 Non-Formulary Medication ([Diphen/Maalox/ Lido] ) 5 ml QID PRN PO Abdominal Pain 09/12/20 02:30 UNV Atorvastatin Calcium (Lipitor) 40 mg QHS PO 09/12/20 21:00 09/25/20 20:34 Carvedilol (Coreg) 25 mg BIDWMEALS PO 09/12/20 08:00 09/25/20 17:20 Simethicone (Gas-X) 80 mg PRN BID PRN PO GAS / BLOATING 09/12/20 02:45 Multi-Ingredient Mouthwash/Gargle (Magic Mouthwash) 10 ml PRN QID PRN PO MOUTH PAIN 09/12/20 09:00 Alprazolam (Xanax) 0.5 mg TID PO 09/12/20 09:00 09/21/20 17:40 DC 09/21/20 08:11 Buspirone HCl (Buspar) 7.5 mg TID PO 09/12/20 03:00 09/15/20 17:39 DC 09/15/20 13:07 Chlorpromazine HCl (Thorazine) 25 mg PRN BID PRN IV PSYCHOSIS 09/12/20 02:45 Melatonin (Melatonin) 9 mg QHS PO 09/12/20 21:00 09/25/20 20:35 Benztropine Mesylate (Cogentin) 2 mg BID PO 09/12/20 09:00 09/25/20 20:34 Insulin Human Lispro (HumaLOG) 0-9 UNITS TIDWMEALS SQ 09/12/20 08:00 09/25/20 17:22 Calcium Polycarbophil (Fibercon) 625 mg DAILY PO 09/12/20 09:00 09/25/20 08:13 Haloperidol Lactate (Haldol) 5 mg DAILY IM 09/13/20 11:00 09/16/20 18:26 DC 09/16/20 09:58 Lorazepam (Ativan Inj) 1 mg 1X ONCE IM 09/13/20 10:45 09/13/20 10:56 DC 09/13/20 11:08 Lorazepam (Ativan Inj) 1 mg DAILY IM 09/13/20 11:00 09/18/20 18:04 DC Divalproex Sodium (Depakote Er) 500 mg QHS PO 09/13/20 21:00 09/17/20 17:12 DC 09/16/20 20:50 Carbidopa/Levodopa (Sinemet 25/100) 1 tab DAILY08 PO 09/15/20 08:00 09/17/20 08:01 DC 09/17/20 08:18 Carbidopa/Levodopa (Sinemet 25/100) 2 tab 1400,2100 PO 09/15/20 14:00 09/17/20 21:01 DC 09/17/20 20:41 Carbidopa/Levodopa (Sinemet 25/100) 1 tab TID PO 09/21/20 09:00 09/25/20 20:34 Carbidopa/Levodopa (Sinemet 25/100) 1 tab 0900,1400 PO 09/18/20 09:00 09/20/20 14:01 DC 09/20/20 14:53 Carbidopa/Levodopa (Sinemet 25/100) 2 tab QHS PO 09/18/20 21:00 09/20/20 21:01 DC 09/20/20 20:59 Risperidone (RisperDAL) 2 mg QHS PO 09/14/20 21:00 09/16/20 18:26 DC 09/15/20 20:47 Risperidone (RisperDAL) 2.5 mg QHS PO 09/16/20 21:00 09/18/20 19:10 DC 09/17/20 20:41 Divalproex Sodium (Depakote Er) 750 mg QHS PO 09/17/20 21:00 09/25/20 20:34 Trazodone HCl (Desyrel) 100 mg PRN QHS PRN PO INSOMNIA 09/17/20 20:45 09/25/20 01:05 Trazodone HCl (Desyrel) 100 mg QHS PO 09/17/20 21:00 09/25/20 20:35 Risperidone (RisperDAL) 3.5 mg QHS PO 09/18/20 21:00 09/22/20 19:35 DC 09/21/20 20:33 Alprazolam (Xanax) 0.5 mg BID PO 09/21/20 21:00 09/22/20 19:35 DC 09/22/20 08:50 Alprazolam (Xanax) 0.5 mg DAILY PO 09/22/20 09:00 09/22/20 07:57 DC Alprazolam (Xanax) 0.5 mg DAILY PO 09/24/20 09:00 09/22/20 19:35 DC Alprazolam (Xanax) 0.5 mg TID PO 09/22/20 21:00 09/25/20 20:35 Risperidone (RisperDAL) 4 mg QHS PO 09/22/20 21:00 09/25/20 20:35 I have reviewed the current psychotropics carefully including drug interactions. Risk benefit ratio favors no change other than as noted in my dictated progress note. Diagnosis: Problems: (1) Impulse control disorder, unspecified (2) Anxiety disorder, unspecified (3) Bipolar disorder, current episode manic, severe with psychotic features (4) Schizoaffective disorder, bipolar type BRIGIDA WOMACK MD Sep 25, 2020 23:32
--- NOTE | 2020-09-26 02:13 | NUR ---
Patient watched tv with peers part of the evening. He has been calm and pleasant and is compliant with his medications and cooperative with staff. Patient told this nurse that he had tried to talk to Dr Wang today about the weight loss he has experienced and Dr Wang was rude to him. Patient stated that Dr Wang said "I am too busy to talk to you" and walked away. Patient is angry that he was treated like that. Patient stated he also wanted to talk to the doctor about his stool being black even after stopping his iron supplements. Nurse spoke with patient about his labs since he has been here (RBC, HGB and HCT) and about his current medications. Patient stated he is relieved to know that his labs are WNL and that his blood sugars have been good most to the time he has been here. Patient told this nurse that [facility] (where he is a resident) will "throw away the medication list and just do what they want". He stated he wants to talk to his legal guardian about how they treat him at his facility. Patient is tentatively scheduled to discharge tomorrow.
[2020-09-26 06:00] VITALS: BP 142/87
[2020-09-26] MEDS: FERROUS SULFATE 325 MG TABLET. PO SCH ×3 (08:00→17:00)
[2020-09-26] MEDS: INSULIN LISPRO 300 UNITS/3 ML VIAL. SQ SCH ×3 (08:00→17:00)
[2020-09-26] MEDS: NICOTINE 21MG PATCH. TD SCH (08:43)
[2020-09-26] MEDS: CARBIDOPA/LEVODOPA 25/100MG TABLET PO SCH ×3 (08:44→20:24)
[2020-09-26] MEDS: MONTELUKAST 10 MG TABLET. PO SCH (08:44)
[2020-09-26] MEDS: amLODIPine BESYLATE 10 MG TABLET PO SCH (08:44)
[2020-09-26] MEDS: ALPRAZolam 0.5 MG TABLET PO SCH ×3 (08:45→20:24)
[2020-09-26] MEDS: LISINOPRIL 10 MG TABLET PO SCH (08:45)
[2020-09-26] MEDS: CALCIUM POLYCARBOPHIL 625 MG TABLET PO SCH (08:45)
[2020-09-26] MEDS: BENZTROPINE MESYLATE 1 MG TABLET PO SCH ×2 (08:45→20:25)
[2020-09-26] MEDS: CARVEDILOL 12.5 MG TABLET PO SCH ×2 (08:46→17:52)
[2020-09-26] MEDS: ACETAMINOPHEN 325 MG TABLET PO PRN (08:49)
[2020-09-26] MEDS: POLYETHYLENE GLYCOL 3350 17 GM PACKET. PO SCH (08:55)
--- NOTE | 2020-09-26 11:14 | NUR ---
Nursing note: Pt in dining room at time of AM med pass and assessment. He is pleasant, med compliant, and cooperative. Pt c/o 10/20 back pain this morning and requested PRN tylenol. PRN administered with his AM meds with good effect. Pt talking about his discharge and stated that he would like his own copy of his med list, because his facility will just "toss it in the trash". He has befriended another pt on the unit and is concerned about the wellbeing of the other pt once he leaves, stating "please watch out for him since I won't be here anymore to do it. Don't let anything happen to him." Pt is currently sitting outside on the patio. Will continue to monitor.
[2020-09-26 15:45] VITALS: BP 147/90
--- NOTE | 2020-09-26 18:22 | NUR ---
Nursing note: I contacted pt's facility, [facility] in [place] for an updated warehouse order picker time as pt was supposed to be transported at 1600 and it was 1645 at that time. Staff at the facility did not seem to know what was going on, as they were talking back and forth to each other in the background. A woman began speaking with me and immediately put me on hold, cutting me off mid sentence. I sat on hold for a few minutes before hanging up and trying the number again. The phone went straight to an automated rice drier operator and "back up rice drier operator is unavailable". I attempted calling this number several times to get a hold of someone and it continued to go straight to the automated message, unable to leave a voice message. Pt's legal guardian notified of situation. He gave me the number for Gilles, the financial systems administrator, at [facility] ([phone]). Gilles was reached and he explained that there was some miscommunication. The nurse who spoke with Sindhu MARES this morning thought we were transporting pt as the facility was unable to pick pt up until tomorrow (09/27). New transport time for pt, per Gilles, is 09/27 @ 1100. Pt's legal guardian notified of change in discharge date/time.
[2020-09-26] MEDS: ATORVASTATIN CALCIUM 20 MG TABLET PO SCH (20:23)
[2020-09-26] MEDS: risperiDONE 1 MG TABLET. PO SCH (20:24)
[2020-09-26] MEDS: DIVALPROEX ER 250 MG TAB.ER.24H. PO SCH (20:24)
[2020-09-26] MEDS: traZODone 100 MG TABLET. PO SCH (20:24)
[2020-09-26] MEDS: TAMSULOSIN 0.4 MG CAP.ER.24H. PO SCH (20:25)
[2020-09-26] MEDS: MELATONIN 3 MG TABLET PO SCH (20:25)
[2020-09-26] MEDS ORDERED: HALOPERIDOL 1 MG TABLET PO ONE (21:15)
[2020-09-26] MEDS ORDERED: risperiDONE 1 MG TABLET. PO ONE (21:15)
--- NOTE | 2020-09-26 21:19 | NUR ---
Nelson pt is less talkative than usual and has been withdrawn and has a depressed affect. He is paranoid and said at [facility] they gave him a overdose of Invega and caused him to get Parkinson's Also they gave him coffee that had something in it to give him testicular cancer. He was also making grandiose comments about suing for millions of dollars. Dr Hartman called and informed of above and orders were received.
[2020-09-26] MEDS ORDERED: HALOPERIDOL 5 MG TABLET PO ONE (21:45)
--- NOTE | 2020-09-26 22:06 | PDOC ---
Exam Note: Joel Note: Please also refer to the separate dictated note~for this date of service dictated separately.~Patient seen individually. Discussed the patient with Nursing staff reviewed the chart.~Reviewed interim history and current functioning. Reviewed vital signs,~Labs/ Radiology~and current medications noted below. Continue current treatment with the changes noted in the dictated addendum note Assessment: Vital Signs/I&O: Vital Signs Date Time Temp Pulse Resp B/P (MAP) Pulse Ox O2 Delivery O2 Flow Rate FiO2 09/26/20 17:52 67 147/90 09/26/20 15:45 97.1 18 99 09/25/20 05:55 Room Air I & O 09/25/20 09/25/20 09/26/20 15:00 23:00 07:00 Intake Total 960 ml 720 ml Balance 960 ml 720 ml Labs: Laboratory Tests Test 09/26/20 07:31 09/26/20 11:34 09/26/20 16:48 09/26/20 19:10 Glucose (Fingerstick) 108 mg/dL (70-99) H 114 mg/dL (70-99) H 133 mg/dL (70-99) H 127 mg/dL (70-99) H Current Medications: Meds: Laboratory Tests Test 09/26/20 07:31 09/26/20 11:34 09/26/20 16:48 09/26/20 19:10 Glucose (Fingerstick) 108 mg/dL 114 mg/dL 133 mg/dL 127 mg/dL Current Medications Medications (Trade) Dose Ordered Sig/Moe Route PRN Reason Start Time Stop Time Status Last Admin Dose Admin Acetaminophen (Tylenol) 650 mg PRN Q6HRS PRN PO MILD PAIN / TEMP > 100.3'F 09/12/20 01:00 09/26/20 08:49 Multi-Ingredient Ointment (Analgesic [place]) 1 miquel PRN QID PRN TP MUSCLE PAIN 09/12/20 01:00 Al Hydroxide/Mg Hydroxide (Mylanta Plus Xs) 15 ml PRN AFTMEALHC PRN PO DYSPEPSIA 09/12/20 01:00 Magnesium Hydroxide (Milk Of Magnesia) 2,400 mg PRN QHS PRN PO CONSTIPATION 09/12/20 01:00 09/20/20 06:25 Nicotine (Nicoderm Cq 21mg Patch) 1 patch DAILY TD 6/2/21 09:00 09/26/20 08:43 Alprazolam (Xanax) 0.5 mg TID PO 09/12/20 02:00 09/12/20 02:50 DC 09/12/20 02:01 Olanzapine (ZyPREXA) 5 mg HS PO 09/12/20 02:00 09/14/20 17:48 DC 09/13/20 20:20 Trazodone HCl (Desyrel) 100 mg HS PO 09/12/20 02:00 09/17/20 20:50 DC 09/17/20 00:06 Benztropine Mesylate (Cogentin) 2 mg BID PO 09/12/20 02:00 09/12/20 02:51 DC 09/12/20 02:01 Melatonin (Melatonin) 9 mg HS PO 09/12/20 02:00 09/12/20 02:51 DC 09/12/20 02:01 Quetiapine Fumarate (SEROquel) 200 mg HS PO 09/12/20 02:00 09/15/20 17:39 DC 09/14/20 20:31 Amlodipine Besylate (Norvasc) 10 mg DAILY PO 09/12/20 09:00 09/26/20 08:44 Calcium Polycarbophil (Fibercon) 625 mg DAILY PO 09/12/20 09:00 09/12/20 09:12 DC Carbidopa/Levodopa (Sinemet 25/100) 2 tab TID PO 09/12/20 09:00 09/14/20 22:00 DC 09/14/20 20:29 Cetirizine HCl (ZyrTEC) 10 mg PRN DAILY PRN PO ALLERGIES 09/12/20 02:30 Ferrous Sulfate (Feosol) 325 mg TIDWMEALS PO 09/12/20 08:00 09/25/20 08:13 Montelukast Sodium (Singulair) 10 mg DAILY PO 09/12/20 09:00 09/26/20 08:44 Artificial Tears (Artificial Tears) 1 drop PRN QID PRN OU DRY EYE 09/12/20 02:30 Tamsulosin HCl (Flomax) 0.4 mg HS PO 09/12/20 21:00 09/26/20 20:25 Lisinopril (Prinivil) 30 mg DAILY PO 09/12/20 09:00 09/26/20 08:45 Non-Formulary Medication (Loratadine ) 10 mg DAILY PO 09/12/20 09:00 09/12/20 02:37 DC Polyethylene Glycol (miraLAX) 17 gm DAILY PO 09/12/20 09:00 09/22/20 08:50 Non-Formulary Medication ([Diphen/Maalox/ Lido] ) 5 ml QID PRN PO Abdominal Pain 09/12/20 02:30 UNV Atorvastatin Calcium (Lipitor) 40 mg QHS PO 09/12/20 21:00 09/26/20 20:23 Carvedilol (Coreg) 25 mg BIDWMEALS PO 09/12/20 08:00 09/26/20 17:52 Simethicone (Gas-X) 80 mg PRN BID PRN PO GAS / BLOATING 09/12/20 02:45 Multi-Ingredient Mouthwash/Gargle (Magic Mouthwash) 10 ml PRN QID PRN PO MOUTH PAIN 09/12/20 09:00 Alprazolam (Xanax) 0.5 mg TID PO 09/12/20 09:00 09/21/20 17:40 DC 09/21/20 08:11 Buspirone HCl (Buspar) 7.5 mg TID PO 09/12/20 03:00 09/15/20 17:39 DC 09/15/20 13:07 Chlorpromazine HCl (Thorazine) 25 mg PRN BID PRN IV PSYCHOSIS 09/12/20 02:45 Melatonin (Melatonin) 9 mg QHS PO 09/12/20 21:00 09/26/20 20:25 Benztropine Mesylate (Cogentin) 2 mg BID PO 09/12/20 09:00 09/26/20 20:25 Insulin Human Lispro (HumaLOG) 0-9 UNITS TIDWMEALS SQ 09/12/20 08:00 09/25/20 17:22 Calcium Polycarbophil (Fibercon) 625 mg DAILY PO 09/12/20 09:00 09/26/20 08:45 Haloperidol Lactate (Haldol) 5 mg DAILY IM 09/13/20 11:00 09/16/20 18:26 DC 09/16/20 09:58 Lorazepam (Ativan Inj) 1 mg 1X ONCE IM 09/13/20 10:45 09/13/20 10:56 DC 09/13/20 11:08 Lorazepam (Ativan Inj) 1 mg DAILY IM 09/13/20 11:00 09/18/20 18:04 DC Divalproex Sodium (Depakote Er) 500 mg QHS PO 09/13/20 21:00 09/17/20 17:12 DC 09/16/20 20:50 Carbidopa/Levodopa (Sinemet 25/100) 1 tab DAILY08 PO 09/15/20 08:00 09/17/20 08:01 DC 09/17/20 08:18 Carbidopa/Levodopa (Sinemet 25/100) 2 tab 1400,2100 PO 09/15/20 14:00 09/17/20 21:01 DC 09/17/20 20:41 Carbidopa/Levodopa (Sinemet 25/100) 1 tab TID PO 09/21/20 09:00 09/26/20 20:24 Carbidopa/Levodopa (Sinemet 25/100) 1 tab 0900,1400 PO 09/18/20 09:00 09/20/20 14:01 DC 09/20/20 14:53 Carbidopa/Levodopa (Sinemet 25/100) 2 tab QHS PO 09/18/20 21:00 09/20/20 21:01 DC 09/20/20 20:59 Risperidone (RisperDAL) 2 mg QHS PO 09/14/20 21:00 09/16/20 18:26 DC 09/15/20 20:47 Risperidone (RisperDAL) 2.5 mg QHS PO 09/16/20 21:00 09/18/20 19:10 DC 09/17/20 20:41 Divalproex Sodium (Depakote Er) 750 mg QHS PO 09/17/20 21:00 09/26/20 20:24 Trazodone HCl (Desyrel) 100 mg PRN QHS PRN PO INSOMNIA 09/17/20 20:45 09/25/20 01:05 Trazodone HCl (Desyrel) 100 mg QHS PO 09/17/20 21:00 09/26/20 20:24 Risperidone (RisperDAL) 3.5 mg QHS PO 09/18/20 21:00 09/22/20 19:35 DC 09/21/20 20:33 Alprazolam (Xanax) 0.5 mg BID PO 09/21/20 21:00 09/22/20 19:35 DC 09/22/20 08:50 Alprazolam (Xanax) 0.5 mg DAILY PO 09/22/20 09:00 09/22/20 07:57 DC Alprazolam (Xanax) 0.5 mg DAILY PO 09/24/20 09:00 09/22/20 19:35 DC Alprazolam (Xanax) 0.5 mg TID PO 09/22/20 21:00 09/26/20 20:24 Risperidone (RisperDAL) 4 mg QHS PO 09/22/20 21:00 09/26/20 21:13 DC 09/26/20 20:24 Risperidone (RisperDAL) 5 mg QHS PO 09/27/20 21:00 Haloperidol (Haldol) 1 mg 1X ONCE PO 09/26/20 21:15 09/26/20 21:39 DC Risperidone (RisperDAL) 1 mg 1X ONCE PO 09/26/20 21:15 09/26/20 21:30 DC Haloperidol (Haldol) 5 mg 1X ONCE PO 09/26/20 21:45 09/26/20 21:46 DC I have reviewed the current psychotropics carefully including drug interactions. Risk benefit ratio favors no change other than as noted in my dictated progress note. Diagnosis: Problems: (1) Impulse control disorder, unspecified (2) Anxiety disorder, unspecified (3) Bipolar disorder, current episode manic, severe with psychotic features (4) Schizoaffective disorder, bipolar type BRIGIDA WOMACK MD Sep 26, 2020 22:06
[2020-09-27] MEDS: traZODone 100 MG TABLET. PO PRN (00:57)
--- NOTE | 2020-09-27 02:36 | NUR ---
Pt has been sleeping now he is awake and fully dressed. PRN trazodone given on request, pt requested 200 mg dose. He declined Haldol and additional 1 mg Risperidone that was ordered earlier. He remains anxious and said if he is not discharged today he is leaving anyway and will call a scoring machine operator and go to court if he has to.
[2020-09-27 06:32] VITALS: BP 134/82
[2020-09-27] MEDS: FERROUS SULFATE 325 MG TABLET. PO SCH ×2 (08:00→12:00)
[2020-09-27] MEDS: INSULIN LISPRO 300 UNITS/3 ML VIAL. SQ SCH ×2 (08:00→12:00)
[2020-09-27] MEDS: BENZTROPINE MESYLATE 1 MG TABLET PO SCH (08:15)
[2020-09-27] MEDS: LISINOPRIL 10 MG TABLET PO SCH (08:16)
[2020-09-27] MEDS: ALPRAZolam 0.5 MG TABLET PO SCH (08:16)
[2020-09-27] MEDS: CARVEDILOL 12.5 MG TABLET PO SCH (08:16)
[2020-09-27 08:17] VITALS: BP 134/82
[2020-09-27] MEDS: CALCIUM POLYCARBOPHIL 625 MG TABLET PO SCH (08:17)
[2020-09-27] MEDS: CARBIDOPA/LEVODOPA 25/100MG TABLET PO SCH (08:17)
[2020-09-27] MEDS: MONTELUKAST 10 MG TABLET. PO SCH (08:17)
[2020-09-27] MEDS: amLODIPine BESYLATE 10 MG TABLET PO SCH (08:17)
[2020-09-27] MEDS: NICOTINE 21MG PATCH. TD SCH (08:18)
[2020-09-27] MEDS: POLYETHYLENE GLYCOL 3350 17 GM PACKET. PO SCH (09:00)
--- NOTE | 2020-09-27 10:49 | NUR ---
WEEKLY ACTIVITY THERAPY NOTE Date of Admission: 09/11/20 Date of AT Assessment: 09/13 Precipitating behaviors that initiated intake and admission: IT WAS REPORTED THAT PATIENT HAS BEEN HAVING DECREASED SLEEP, PARANOIA, HYPERVERBAL, DELUSIONS: THINKING THAT STAFF IS POISONING HIM, VISUAL HALLUCINATIONS THAT HE HAS LESIONS ALL OVER HIS BODY AND THAT HIS FACILITY HAS GIVEN HIM CANCER. Goal aimed: increase stress management and relaxation skills Initial Goal: Pt will participate in at least five individual or group Activity Therapy sessions per week. Goal changed 09/20:Pt will participate in all group Activity Therapy sessions offered. Weekly progress towards goal: achieved Group participation level: 5 full, 3 mod Weekly highlights: several full groups this week Behaviors observed: helpful with peers and patient with others, appreciative of groups, engages well, little more distracted yesterday little more restless Plan: no change to goal Beneficial adaptations:
[2020-09-27] MEDS ORDERED: HALO5TAB PO (10:52)
--- NOTE | 2020-09-27 11:32 | NUR ---
Treatment team note: Pt is eating 100% of meals and sleeping an average of 4 hours at night. Pt is compliant with medications and mostly calm. Pt was agitated yesterday as he was scheduled to discharge at 1600 and that did not happen due to facility transportation trouble. Pt then became delusional and slightly paranoid that staff at [facility] gave him Cancer through the coffee they served him and he cannot prove it as they dump the pot after serving him. Pt is very helpful with a peer on the unit who is blind; but not too overly intrusive. Pt attends all groups with full participation and is appreciative of them. SW to follow up with the facility and [facility].
--- NOTE | 2020-09-27 11:45 | NUR ---
VISHNU contacted Gilles, ED at [facility] to double check the status of pt discharge. Gilles reports a miscommunication between his staff. But he did say that transport was on the way here to get him today. VISHNU will follow up with nursing to ensure that all paperwork has been sent. Gilles requested that the nurse call and ask for Linh to give report.
--- NOTE | 2020-09-27 12:30 | NUR ---
Tobacco Discharge Note [facility] Tobacco Hotline called with patient prior to discharge, YES Tobacco cessation medication listed with current medications for discharge. YES Transition Record was faxed to follow-up provider with the following elements: Reason for admission, procedures, tests, principal diagnosis, pending studies, patient instructions, 03/11 contact information for unit, phone number to obtain pending test results, plan for follow-up care, physician follow-up, advanced directive information, and medication list with dose, duration and instructions. This information was included in the following documents: History and physical, lab results, study results, progress notes, social work planning form, DC instruction form, patient visit summary, and medication reconciliation form. Date & time record faxed: 11:07 27 September 2020 Record faxed to: [facility] Record discussed with/ report given to: NEVIN Joe at [facility]
[2020-09-27] MEDS ORDERED: risperiDONE 1 MG TABLET. PO SCH (21:00)
--- NOTE | 2020-09-27 22:10 | PDOC ---
Exam Note: Joel Note: Please also refer to the separate dictated note~for this date of service dictated separately.~Patient seen individually. Discussed the patient with Nursing staff reviewed the chart.~Reviewed interim history and current functioning. Reviewed vital signs,~Labs/ Radiology~and current medications noted below. Continue current treatment with the changes noted in the dictated addendum note Assessment: Vital Signs/I&O: Vital Signs Date Time Temp Pulse Resp B/P (MAP) Pulse Ox O2 Delivery O2 Flow Rate FiO2 09/27/20 08:17 90 134/82 09/27/20 06:32 97.5 16 100 09/25/20 05:55 Room Air I & O 09/26/20 09/26/20 09/27/20 15:00 23:00 07:00 Intake Total 1200 ml 600 ml Balance 1200 ml 600 ml Labs: Laboratory Tests Test 09/27/20 07:11 09/27/20 11:56 Glucose (Fingerstick) 115 mg/dL (70-99) H 82 mg/dL (70-99) Current Medications: Meds: Laboratory Tests Test 09/27/20 07:11 09/27/20 11:56 Glucose (Fingerstick) 115 mg/dL 82 mg/dL Current Medications Medications (Trade) Dose Ordered Sig/Moe Route PRN Reason Start Time Stop Time Status Last Admin Dose Admin Acetaminophen (Tylenol) 650 mg PRN Q6HRS PRN PO MILD PAIN / TEMP > 100.3'F 09/12/20 01:00 09/27/20 13:36 DC 09/26/20 08:49 Multi-Ingredient Ointment (Analgesic [place]) 1 miquel PRN QID PRN TP MUSCLE PAIN 09/12/20 01:00 09/27/20 13:36 DC Al Hydroxide/Mg Hydroxide (Mylanta Plus Xs) 15 ml PRN AFTMEALHC PRN PO DYSPEPSIA 09/12/20 01:00 09/27/20 13:36 DC Magnesium Hydroxide (Milk Of Magnesia) 2,400 mg PRN QHS PRN PO CONSTIPATION 09/12/20 01:00 09/27/20 13:36 DC 09/20/20 06:25 Nicotine (Nicoderm Cq 21mg Patch) 1 patch DAILY TD 09/12/20 09:00 09/27/20 13:36 DC 09/27/20 08:18 Alprazolam (Xanax) 0.5 mg TID PO 09/12/20 02:00 09/12/20 02:50 DC 09/12/20 02:01 Olanzapine (ZyPREXA) 5 mg HS PO 09/12/20 02:00 09/14/20 17:48 DC 09/13/20 20:20 Trazodone HCl (Desyrel) 100 mg HS PO 09/12/20 02:00 09/17/20 20:50 DC 09/17/20 00:06 Benztropine Mesylate (Cogentin) 2 mg BID PO 09/12/20 02:00 09/12/20 02:51 DC 09/12/20 02:01 Melatonin (Melatonin) 9 mg HS PO 09/12/20 02:00 09/12/20 02:51 DC 09/12/20 02:01 Quetiapine Fumarate (SEROquel) 200 mg HS PO 09/12/20 02:00 09/15/20 17:39 DC 09/14/20 20:31 Amlodipine Besylate (Norvasc) 10 mg DAILY PO 09/12/20 09:00 09/27/20 13:36 DC 09/27/20 08:17 Calcium Polycarbophil (Fibercon) 625 mg DAILY PO 09/12/20 09:00 09/12/20 09:12 DC Carbidopa/Levodopa (Sinemet 25/100) 2 tab TID PO 09/12/20 09:00 09/14/20 22:00 DC 09/14/20 20:29 Cetirizine HCl (ZyrTEC) 10 mg PRN DAILY PRN PO ALLERGIES 09/12/20 02:30 09/27/20 13:36 DC Ferrous Sulfate (Feosol) 325 mg TIDWMEALS PO 09/12/20 08:00 09/27/20 13:36 DC 09/25/20 08:13 Montelukast Sodium (Singulair) 10 mg DAILY PO 09/12/20 09:00 09/27/20 13:36 DC 09/27/20 08:17 Artificial Tears (Artificial Tears) 1 drop PRN QID PRN OU DRY EYE 09/12/20 02:30 09/27/20 13:36 DC Tamsulosin HCl (Flomax) 0.4 mg HS PO 09/12/20 21:00 09/27/20 13:36 DC 09/26/20 20:25 Lisinopril (Prinivil) 30 mg DAILY PO 09/12/20 09:00 09/27/20 13:36 DC 09/27/20 08:16 Non-Formulary Medication (Loratadine ) 10 mg DAILY PO 09/12/20 09:00 09/12/20 02:37 DC Polyethylene Glycol (miraLAX) 17 gm DAILY PO 09/12/20 09:00 09/27/20 13:36 DC 09/22/20 08:50 Non-Formulary Medication ([Diphen/Maalox/ Lido] ) 5 ml QID PRN PO Abdominal Pain 09/12/20 02:30 UNV Atorvastatin Calcium (Lipitor) 40 mg QHS PO 09/12/20 21:00 09/27/20 13:36 DC 09/26/20 20:23 Carvedilol (Coreg) 25 mg BIDWMEALS PO 09/12/20 08:00 09/27/20 13:36 DC 09/27/20 08:16 Simethicone (Gas-X) 80 mg PRN BID PRN PO GAS / BLOATING 09/12/20 02:45 09/27/20 13:36 DC Multi-Ingredient Mouthwash/Gargle (Magic Mouthwash) 10 ml PRN QID PRN PO MOUTH PAIN 09/12/20 09:00 09/27/20 13:36 DC Alprazolam (Xanax) 0.5 mg TID PO 09/12/20 09:00 09/21/20 17:40 DC 09/21/20 08:11 Buspirone HCl (Buspar) 7.5 mg TID PO 09/12/20 03:00 09/15/20 17:39 DC 09/15/20 13:07 Chlorpromazine HCl (Thorazine) 25 mg PRN BID PRN IV PSYCHOSIS 09/12/20 02:45 09/27/20 13:36 DC Melatonin (Melatonin) 9 mg QHS PO 09/12/20 21:00 09/27/20 13:36 DC 09/26/20 20:25 Benztropine Mesylate (Cogentin) 2 mg BID PO 09/12/20 09:00 09/27/20 13:36 DC 09/27/20 08:15 Insulin Human Lispro (HumaLOG) 0-9 UNITS TIDWMEALS SQ 09/12/20 08:00 09/27/20 13:36 DC 09/25/20 17:22 Calcium Polycarbophil (Fibercon) 625 mg DAILY PO 09/12/20 09:00 09/27/20 13:36 DC 09/27/20 08:17 Haloperidol Lactate (Haldol) 5 mg DAILY IM 09/13/20 11:00 09/16/20 18:26 DC 09/16/20 09:58 Lorazepam (Ativan Inj) 1 mg 1X ONCE IM 09/13/20 10:45 09/13/20 10:56 DC 09/13/20 11:08 Lorazepam (Ativan Inj) 1 mg DAILY IM 09/13/20 11:00 09/18/20 18:04 DC Divalproex Sodium (Depakote Er) 500 mg QHS PO 09/13/20 21:00 09/17/20 17:12 DC 09/16/20 20:50 Carbidopa/Levodopa (Sinemet 25/100) 1 tab DAILY08 PO 09/15/20 08:00 09/17/20 08:01 DC 09/17/20 08:18 Carbidopa/Levodopa (Sinemet 25/100) 2 tab 1400,2100 PO 09/15/20 14:00 09/17/20 21:01 DC 09/17/20 20:41 Carbidopa/Levodopa (Sinemet 25/100) 1 tab TID PO 09/21/20 09:00 09/27/20 13:36 DC 09/27/20 08:17 Carbidopa/Levodopa (Sinemet 25/100) 1 tab 0900,1400 PO 09/18/20 09:00 09/20/20 14:01 DC 09/20/20 14:53 Carbidopa/Levodopa (Sinemet 25/100) 2 tab QHS PO 09/18/20 21:00 09/20/20 21:01 DC 09/20/20 20:59 Risperidone (RisperDAL) 2 mg QHS PO 09/14/20 21:00 09/16/20 18:26 DC 09/15/20 20:47 Risperidone (RisperDAL) 2.5 mg QHS PO 09/16/20 21:00 09/18/20 19:10 DC 09/17/20 20:41 Divalproex Sodium (Depakote Er) 750 mg QHS PO 09/17/20 21:00 09/27/20 13:36 DC 09/26/20 20:24 Trazodone HCl (Desyrel) 100 mg PRN QHS PRN PO INSOMNIA 09/17/20 20:45 09/27/20 13:36 DC 09/27/20 00:57 Trazodone HCl (Desyrel) 100 mg QHS PO 09/17/20 21:00 09/27/20 13:36 DC 09/26/20 20:24 Risperidone (RisperDAL) 3.5 mg QHS PO 09/18/20 21:00 09/22/20 19:35 DC 09/21/20 20:33 Alprazolam (Xanax) 0.5 mg BID PO 09/21/20 21:00 09/22/20 19:35 DC 09/22/20 08:50 Alprazolam (Xanax) 0.5 mg DAILY PO 09/22/20 09:00 09/22/20 07:57 DC Alprazolam (Xanax) 0.5 mg DAILY PO 09/24/20 09:00 09/22/20 19:35 DC Alprazolam (Xanax) 0.5 mg TID PO 09/22/20 21:00 09/27/20 13:36 DC 09/27/20 08:16 Risperidone (RisperDAL) 4 mg QHS PO 09/22/20 21:00 09/26/20 21:13 DC 09/26/20 20:24 Risperidone (RisperDAL) 5 mg QHS PO 09/27/20 21:00 09/27/20 13:36 DC Haloperidol (Haldol) 1 mg 1X ONCE PO 09/26/20 21:15 09/26/20 21:39 DC Risperidone (RisperDAL) 1 mg 1X ONCE PO 09/26/20 21:15 09/26/20 21:30 DC Haloperidol (Haldol) 5 mg 1X ONCE PO 09/26/20 21:45 09/26/20 21:46 DC I have reviewed the current psychotropics carefully including drug interactions. Risk benefit ratio favors no change other than as noted in my dictated progress note. Diagnosis: Problems: (1) Impulse control disorder, unspecified (2) Anxiety disorder, unspecified (3) Bipolar disorder, current episode manic, severe with psychotic features (4) Schizoaffective disorder, bipolar type BRIGIDA WOMACK MD Sep 27, 2020 22:10
--- NOTE | 2020-09-28 08:33 | PDOC ---
Exam Note: Joel Note: This note is a late entry for 09/26/2020 covers elements not covered in my initial note. Subjective: The patient was seen individually in the evening of 09/26/2020 with Zhanna ROONEY, discussed and reviewed the chart. The patient slept 5-1/4 hours previous night. The patient was to be discharged on 09/26 but transportation complication postponed the discharge to 09/27. He has been depressed, angry, very paranoid and believes shelter has given him testicular cancer. Juan ROONEY called me around 10.30 p.m. due to his marked psychosis and we added Haldol 5 mg daily and increased the Risperdal to 5 mg p.o. h.s. Review of Systems: No CV, , pulmonary, eye, ENT system symptoms on review. Reliability fair. Mental Status Exam: The patient is reasonably oriented. Speech coherent, rapid. I met with him in his room. He was paranoid, hyperverbal, complaining against the transportation problem and believes there was a plot against him for that. Abstraction fair. Computation impaired. Attention span short. Language function intact. Mood and affect remains less labile. No active suicidal or homicidal ideation. Laboratory Data: Reviewed. Impression: Bipolar disorder mixed with psychotic features. Anxiety disorder unspecified. Impulse control disorder unspecified. Schizoaffective disorder, bipolar type, manic with psychotic features. Plan: No change from initial note. We did give extra Haldol 5 mg and increased the Risperdal. Adjust further as clinically indicated. We will reassess morning of 09/27 whether discharge is appropriate or not. Assessment: Vital Signs/I&O: Vital Signs Date Time Temp Pulse Resp B/P (MAP) Pulse Ox O2 Delivery O2 Flow Rate FiO2 09/27/20 08:17 90 134/82 09/27/20 06:32 97.5 16 100 09/25/20 05:55 Room Air I & O 09/27/20 09/27/20 09/28/20 15:00 23:00 07:00 Intake Total 480 ml Balance 480 ml Labs: Laboratory Tests Test 09/27/20 11:56 Glucose (Fingerstick) 82 mg/dL (70-99) Current Medications: Meds: Laboratory Tests Test 09/27/20 11:56 Glucose (Fingerstick) 82 mg/dL Current Medications Medications (Trade) Dose Ordered Sig/Moe Route PRN Reason Start Time Stop Time Status Last Admin Dose Admin Acetaminophen (Tylenol) 650 mg PRN Q6HRS PRN PO MILD PAIN / TEMP > 100.3'F 09/12/20 01:00 09/27/20 13:36 DC 09/26/20 08:49 Multi-Ingredient Ointment (Analgesic [place]) 1 miquel PRN QID PRN TP MUSCLE PAIN 09/12/20 01:00 09/27/20 13:36 DC Al Hydroxide/Mg Hydroxide (Mylanta Plus Xs) 15 ml PRN AFTMEALHC PRN PO DYSPEPSIA 09/12/20 01:00 09/27/20 13:36 DC Magnesium Hydroxide (Milk Of Magnesia) 2,400 mg PRN QHS PRN PO CONSTIPATION 09/12/20 01:00 09/27/20 13:36 DC 09/20/20 06:25 Nicotine (Nicoderm Cq 21mg Patch) 1 patch DAILY TD 09/12/20 09:00 09/27/20 13:36 DC 09/27/20 08:18 Alprazolam (Xanax) 0.5 mg TID PO 09/12/20 02:00 09/12/20 02:50 DC 09/12/20 02:01 Olanzapine (ZyPREXA) 5 mg HS PO 09/12/20 02:00 09/14/20 17:48 DC 09/13/20 20:20 Trazodone HCl (Desyrel) 100 mg HS PO 09/12/20 02:00 09/17/20 20:50 DC 09/17/20 00:06 Benztropine Mesylate (Cogentin) 2 mg BID PO 09/12/20 02:00 09/12/20 02:51 DC 09/12/20 02:01 Melatonin (Melatonin) 9 mg HS PO 09/12/20 02:00 09/12/20 02:51 DC 09/12/20 02:01 Quetiapine Fumarate (SEROquel) 200 mg HS PO 09/12/20 02:00 09/15/20 17:39 DC 09/14/20 20:31 Amlodipine Besylate (Norvasc) 10 mg DAILY PO 09/12/20 09:00 09/27/20 13:36 DC 09/27/20 08:17 Calcium Polycarbophil (Fibercon) 625 mg DAILY PO 09/12/20 09:00 09/12/20 09:12 DC Carbidopa/Levodopa (Sinemet 25/100) 2 tab TID PO 09/12/20 09:00 09/14/20 22:00 DC 09/14/20 20:29 Cetirizine HCl (ZyrTEC) 10 mg PRN DAILY PRN PO ALLERGIES 09/12/20 02:30 09/27/20 13:36 DC Ferrous Sulfate (Feosol) 325 mg TIDWMEALS PO 09/12/20 08:00 09/27/20 13:36 DC 09/25/20 08:13 Montelukast Sodium (Singulair) 10 mg DAILY PO 09/12/20 09:00 09/27/20 13:36 DC 09/27/20 08:17 Artificial Tears (Artificial Tears) 1 drop PRN QID PRN OU DRY EYE 09/12/20 02:30 09/27/20 13:36 DC Tamsulosin HCl (Flomax) 0.4 mg HS PO 09/12/20 21:00 09/27/20 13:36 DC 09/26/20 20:25 Lisinopril (Prinivil) 30 mg DAILY PO 09/12/20 09:00 09/27/20 13:36 DC 09/27/20 08:16 Non-Formulary Medication (Loratadine ) 10 mg DAILY PO 09/12/20 09:00 09/12/20 02:37 DC Polyethylene Glycol (miraLAX) 17 gm DAILY PO 09/12/20 09:00 09/27/20 13:36 DC 09/22/20 08:50 Non-Formulary Medication ([Diphen/Maalox/ Lido] ) 5 ml QID PRN PO Abdominal Pain 09/12/20 02:30 UNV Atorvastatin Calcium (Lipitor) 40 mg QHS PO 09/12/20 21:00 09/27/20 13:36 DC 09/26/20 20:23 Carvedilol (Coreg) 25 mg BIDWMEALS PO 09/12/20 08:00 09/27/20 13:36 DC 09/27/20 08:16 Simethicone (Gas-X) 80 mg PRN BID PRN PO GAS / BLOATING 09/12/20 02:45 09/27/20 13:36 DC Multi-Ingredient Mouthwash/Gargle (Magic Mouthwash) 10 ml PRN QID PRN PO MOUTH PAIN 09/12/20 09:00 09/27/20 13:36 DC Alprazolam (Xanax) 0.5 mg TID PO 09/12/20 09:00 09/21/20 17:40 DC 09/21/20 08:11 Buspirone HCl (Buspar) 7.5 mg TID PO 09/12/20 03:00 09/15/20 17:39 DC 09/15/20 13:07 Chlorpromazine HCl (Thorazine) 25 mg PRN BID PRN IV PSYCHOSIS 09/12/20 02:45 09/27/20 13:36 DC Melatonin (Melatonin) 9 mg QHS PO 09/12/20 21:00 09/27/20 13:36 DC 09/26/20 20:25 Benztropine Mesylate (Cogentin) 2 mg BID PO 09/12/20 09:00 09/27/20 13:36 DC 09/27/20 08:15 Insulin Human Lispro (HumaLOG) 0-9 UNITS TIDWMEALS SQ 09/12/20 08:00 09/27/20 13:36 DC 09/25/20 17:22 Calcium Polycarbophil (Fibercon) 625 mg DAILY PO 09/12/20 09:00 09/27/20 13:36 DC 09/27/20 08:17 Haloperidol Lactate (Haldol) 5 mg DAILY IM 09/13/20 11:00 09/16/20 18:26 DC 09/16/20 09:58 Lorazepam (Ativan Inj) 1 mg 1X ONCE IM 09/13/20 10:45 09/13/20 10:56 DC 09/13/20 11:08 Lorazepam (Ativan Inj) 1 mg DAILY IM 09/13/20 11:00 09/18/20 18:04 DC Divalproex Sodium (Depakote Er) 500 mg QHS PO 09/13/20 21:00 09/17/20 17:12 DC 09/16/20 20:50 Carbidopa/Levodopa (Sinemet 25/100) 1 tab DAILY08 PO 09/15/20 08:00 09/17/20 08:01 DC 09/17/20 08:18 Carbidopa/Levodopa (Sinemet 25/100) 2 tab 1400,2100 PO 09/15/20 14:00 09/17/20 21:01 DC 09/17/20 20:41 Carbidopa/Levodopa (Sinemet 25/100) 1 tab TID PO 09/21/20 09:00 09/27/20 13:36 DC 09/27/20 08:17 Carbidopa/Levodopa (Sinemet 25/100) 1 tab 0900,1400 PO 09/18/20 09:00 09/20/20 14:01 DC 09/20/20 14:53 Carbidopa/Levodopa (Sinemet 25/100) 2 tab QHS PO 09/18/20 21:00 09/20/20 21:01 DC 09/20/20 20:59 Risperidone (RisperDAL) 2 mg QHS PO 09/14/20 21:00 09/16/20 18:26 DC 09/15/20 20:47 Risperidone (RisperDAL) 2.5 mg QHS PO 09/16/20 21:00 09/18/20 19:10 DC 09/17/20 20:41 Divalproex Sodium (Depakote Er) 750 mg QHS PO 09/17/20 21:00 09/27/20 13:36 DC 09/26/20 20:24 Trazodone HCl (Desyrel) 100 mg PRN QHS PRN PO INSOMNIA 09/17/20 20:45 09/27/20 13:36 DC 09/27/20 00:57 Trazodone HCl (Desyrel) 100 mg QHS PO 09/17/20 21:00 09/27/20 13:36 DC 09/26/20 20:24 Risperidone (RisperDAL) 3.5 mg QHS PO 09/18/20 21:00 09/22/20 19:35 DC 09/21/20 20:33 Alprazolam (Xanax) 0.5 mg BID PO 09/21/20 21:00 09/22/20 19:35 DC 09/22/20 08:50 Alprazolam (Xanax) 0.5 mg DAILY PO 09/22/20 09:00 09/22/20 07:57 DC Alprazolam (Xanax) 0.5 mg DAILY PO 09/24/20 09:00 09/22/20 19:35 DC Alprazolam (Xanax) 0.5 mg TID PO 09/22/20 21:00 09/27/20 13:36 DC 09/27/20 08:16 Risperidone (RisperDAL) 4 mg QHS PO 09/22/20 21:00 09/26/20 21:13 DC 09/26/20 20:24 Risperidone (RisperDAL) 5 mg QHS PO 09/27/20 21:00 09/27/20 13:36 DC Haloperidol (Haldol) 1 mg 1X ONCE PO 09/26/20 21:15 09/26/20 21:39 DC Risperidone (RisperDAL) 1 mg 1X ONCE PO 09/26/20 21:15 09/26/20 21:30 DC Haloperidol (Haldol) 5 mg 1X ONCE PO 09/26/20 21:45 09/26/20 21:46 DC I have reviewed the current psychotropics carefully including drug interactions. Risk benefit ratio favors no change other than as noted in my dictated progress note. Diagnosis: Problems: (1) Impulse control disorder, unspecified (2) Anxiety disorder, unspecified (3) Bipolar disorder, current episode manic, severe with psychotic features (4) Schizoaffective disorder, bipolar type BRIGIDA WOMACK MD Sep 28, 2020 08:33
--- NOTE | 2020-09-29 21:52 | DS ---
DATE OF DISCHARGE: 09/27/2020 DISCHARGE SUMMARY/PSYCHIATRIC PROGRESS NOTE This is a late entry, date of service 09/27/2020 covers the elements not covered in my initial note. REASON FOR ADMISSION: Please refer to the admission history for details. Briefly, the patient is a 65-year-old male referred to us from the [facility] Emergency Room where he presented from [facility] and admitted by his legal guardian on account of an acute exacerbation of his schizoaffective disorder, bipolar type. He had been in outpatient treatment at [facility] and had failed this. He was extremely manic, psychotic with marked insomnia, paranoid, hyperverbal, delusional. He thought the staff was poisoning him and giving him testicular cancer. He was having visual hallucinations and seeing lesions all over his body. He had failed outpatient psychiatric interventions and behaviors were unmanageable at the facility resulting in this referral. SIGNIFICANT FINDINGS AND CLINICAL COURSE: Following admission, the patient was seen daily individually by myself from a psychiatric standpoint and medical followup with Dr. Galaviz/Dr. Wang. The patient was extremely manic, grandiose, hyperverbal, psychotic, disruptive at admission. Adjustments were made in his psychotropics and he seemed to respond to a combination of Depakote ER 750 mg at bedtime with a Valproic acid level therapeutic at 51; Risperdal 5 mg at bedtime; Haldol 5 mg daily; Cogentin 2 mg b.i.d.; Xanax 0.5 mg t.i.d.; Sinemet 25/100 one in the morning, two at 1400 and 2100; melatonin 9 mg at bedtime; trazodone 100 mg at bedtime, may repeat x2 p.r.n. insomnia. The patient was on two antipsychotics at discharge. He had failed treatment on a single antipsychotic and thus, the reason for this. Once he is stable for about 30 days, perhaps the Haldol could be discontinued if considered appropriate by his psychiatrist at that time. MENTAL STATUS EXAMINATION: Prior to discharge, the patient is awake, alert, oriented. Speech coherent. Abstraction fair. Computation impaired. Language function intact. Attention span fair. Mood and affect improved. No clear psychotic symptoms, suicidal or homicidal ideation prior to discharge. CONDITION ON DISCHARGE: Improved. FINAL DIAGNOSES: Schizoaffective disorder, bipolar type, mixed with psychotic features, in partial remission; anxiety disorder, unspecified; impulse control disorder, unspecified. Rest unchanged from admission. DISCHARGE MEDICATIONS: Please refer to the [facility]. DISCHARGE INSTRUCTIONS: [facility]. Time for discharge day management greater than 30 minutes. RYAN/HOANG DR: Maurice TID: [id number]
== END 2020-09-27 12:30 | DRG 885 ==
LOC: EDBD 23:30 → GEROPSY 23:30
PROVIDERS: ADMIT Psychiatry & Neurology Psychiatry; ATTEND Psychiatry & Neurology Psychiatry
DX: F25.0 Schizoaffective disorder, bipolar type (principal); N18.9 Chronic kidney disease, unspecified; N17.0 Acute kidney failure with tubular necrosis; E78.5 Hyperlipidemia, unspecified; F17.200 Nicotine dependence, unspecified, uncomplicated; F41.9 Anxiety disorder, unspecified; F63.9 Impulse disorder, unspecified; G47.00 Insomnia, unspecified; M13.0 Polyarthritis, unspecified; Z96.659 Presence of unspecified artificial knee joint; I12.9 Hypertensive chronic kidney disease with stage 1 through stage 4 chronic kidney disease, or unspecified chronic kidney disease; E11.22 Type 2 diabetes mellitus with diabetic chronic kidney disease; K21.9 Gastro-esophageal reflux disease without esophagitis; Z79.899 Other long term (current) drug therapy; Z91.14 Patient's other noncompliance with medication regimen
CPT/HCPCS: 36415; 80053; 80061; 80164; 82306; 82607; 82947; 83036; 83540; 83550; 83735; 84436; 84443; 84480; 85025; 85379; 86592; 93005; J1630; J1815; J2060